=== PATIENT | female | born 1955 | race Caucasian/White ===

== ENCOUNTER 2021-09-16 14:15 | Emergency (ER) | payer OTHER, SELFPAY ==
[2021-09-16 14:31] VITALS: BP 128/82; PULSE 76; RESP 16; TEMP 36.2; O2SAT 99
--- NOTE | 2021-09-16 15:07 | PC.NURSE ---
re examiner did consult with er and aware of need for further evaluation in er after sutures placed by re examiner.
--- NOTE | 2021-09-16 15:13 | ED.WOUNDLAC ---
HPI - Wound/Laceration General Chief Complaint: Wound/Laceration Stated Complaint: cut upper right eye Time Seen by Provider: 09/16/21 14:45 Source: patient, RN notes reviewed and old records reviewed Mode of arrival: ambulatory Limitations: no limitations History of Present Illness HPI narrative: 65 years old female accompanied by presents to express care with laceration above right eye along eyebrow ridge which occurred from ground-level fall hitting head onto concrete. 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 Patient reports that she had mass at the base of her brain and had to have surgery for removal and she had cerebral angiogram performed with clot formation which they were able to break up without her developing a full CVA. Patient has had cervical fusion to base of skull.Patient denies any LOC at time of injury. Patient denies any acute headache pain at present time or any feelings of dizziness.no changes in speech or any motor weakness. Related Data Home Medications Medication Instructions Recorded Confirmed Epidurals 09/16/21 Xanax 09/16/21 apremilast [Otezla] mg PO 09/16/21 aspirin 81 mg PO DAILY 09/16/21 09/16/21 atorvastatin 09/16/21 carisoprodol 09/16/21 dapagliflozin-metformin [Xigduo XR] PO 09/16/21 ergocalciferol (vitamin D2) 09/16/21 ezetimibe mg 09/16/21 famotidine 09/16/21 fenofibrate mg 09/16/21 fluticasone propion-salmeterol INHALATION 09/16/21 [Advair Diskus] folic acid 09/16/21 ixekizumab [Taltz Autoinjector] mg SUBCUT 09/16/21 lisinopril 09/16/21 mecobalamin (vitamin B12) 09/16/21 methotrexate sodium 09/16/21 montelukast mg 09/16/21 pregabalin 09/16/21 rivaroxaban [Xarelto] mg 09/16/21 semaglutide [Ozempic] mg SUBCUT 09/16/21 tramadol mg 09/16/21 trazodone 09/16/21 Allergies Allergy/AdvReac Type Severity Reaction Status Date / Time infliximab Allergy Severe paralysis Verified 09/16/21 16:25 Review of Systems Review of Systems: CONSTITUTIONAL: Denies fever, chills, or sweats. EYES: Denies visual changes, redness, or discharge. ENT: Denies rhinorrhea, congestion, sore throat, or otalgia. CARDIOVASCULAR: Denies chest pain, palpitations, or edema. RESPIRATORY: Denies cough or dyspnea. GASTROINTESTINAL: Denies abdominal pain, nausea, vomiting, or diarrhea. GENITOURINARY: Denies dysuria or hematuria. SKIN: Denies rash or itching. MUSCULOSKELETAL: Chronic back pain, joint pain, or myalgia, history of psoriatic arthritis and spinal stenosis NEUROLOGIC: Denies acute headache, numbness, or weakness, dizziness or any visual disturbance PSYCHIATRIC: Positive for history of anxiety or depression. All systems reviewed & are unremarkable except as noted in HPI and below PMFSH Past Medical History Medical History (Updated 09/17/21 @ 01:05 by Kristi Weber NP) Afib CAD (coronary artery disease) CVA (cerebral vascular accident) Diabetes Elevated cholesterol GERD (gastroesophageal reflux disease) [facility] current use of anticoagulant Myocardial infarction Psoriatic arthritis Spinal stenosis Surgical History Surgical History (Updated 09/17/21 @ 00:52 by Kristi Weber NP) H/O cervical spine surgery H/O repair of rotator cuff History of carpal tunnel surgery History of knee replacement Social History Social History (Updated 09/17/21 @ 01:06 by Kristi Weber NP) Smoking status: Former smoker Tobacco type: cigarettes Alcohol intake: never Substance use: never Living arrangements: with family Gender identity (if verbalized by the patient): Female Exam Narrative: GENERAL: Well-appearing, well-nourished, and in no acute distress. HEAD: Normocephalic, atraumatic. EYES: PERRLA and EOMI.no nystagmus ENT: Nares clear, no rhinorrhea or epistaxis. Mucous membranes moist.TM's normal with good light reflex, throat pink with no lesions or exudates no tonsil enlargement NECK: Supp
--- NOTE | 2021-09-16 15:37 | PC.NURSE ---
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
== END 2021-09-16 15:46 | disposition short-term general hospital (02) ==
PROVIDERS: Emergency Provider Registered Nurse
DX: S01.81XA Laceration without foreign body of other part of head, initial encounter (principal); W19.XXXA Unspecified fall, initial encounter; Z79.01 Long term (current) use of anticoagulants; Z87.891 Personal history of nicotine dependence; I48.91 Unspecified atrial fibrillation; I25.10 Atherosclerotic heart disease of native coronary artery without angina pectoris; Z86.73 Personal history of transient ischemic attack (TIA), and cerebral infarction without residual deficits; E11.9 Type 2 diabetes mellitus without complications; E78.00 Pure hypercholesterolemia, unspecified; K21.9 Gastro-esophageal reflux disease without esophagitis; I25.2 Old myocardial infarction; L40.50 Arthropathic psoriasis, unspecified; M48.00 Spinal stenosis, site unspecified; Z96.659 Presence of unspecified artificial knee joint
CPT/HCPCS: 12011; 99212; G0463

== ENCOUNTER 2021-09-16 16:03 | Emergency (ER) | payer OTHER, SELFPAY ==
--- NOTE | ~2021-09-16 | CT_ITS ---
EXAMINATION: CT cervical spine wo con DATE: 09/16/2021 16:43 INDICATION: Fall. Head and neck injury. TECHNIQUE: Computed tomography (CT) of the cervical spine was performed without intravenous contrast. Automated exposure control and iterative reconstruction technique were employed. Exam dose: 223.84 mGy-cm total exam DLP. COMPARISON: None FINDINGS: There is reversal of cervical curvature. Posterior surgical fusion from C3-base of skull. C1 and C2 are normally aligned and the odontoid process is intact. There is moderate degenerative disc disease at C2-3. There is moderate degenerative disease and approximately 3 mm anterolisthesis at C3-4. There is moderate degenerative disc disease at C4-5. There is anterior fusion at C5-6. There is severe degenerative disc disease at C6-7 and C7-T1 and moderate degenerative disc disease at T1-2. There is prominent uncovertebral joint spurring at C4-5 and C6-C7 in particular. There is degenerative change at the apophyseal joints throughout the cervical spine. IMPRESSION: Status post posterior surgical fusion from C3 to the base of the skull Anterior fusion at C5-6 3 mm anterolisthesis at C3-4 Moderate to severe degenerative disc disease of the cervical and upper thoracic spine Prominent uncovertebral joint spurring at C4-5 and C6-7, degenerative changes throughout the apophyse al joints No fracture or dislocation is detected Reviewed, dictated and finalized at [facility]. Reviewed, dictated and finalized at location [facility]. 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
--- NOTE | ~2021-09-16 | CT_ITS ---
EXAMINATION: CT brain wo con DATE: 09/16/2021 16:43 INDICATION: Fall. Supraorbital right laceration TECHNIQUE: Computed tomography (CT) of the head was performed without intravenous contrast. The mA wa s adjusted according to patient size. Iterative reconstruction technique was employed. Exam dose: 60 5.33 mGy-cm total exam DLP. COMPARISON: None FINDINGS: There is considerable streak artifact in the posterior fossa from the screws along the post erior base of the skull extending into the mid occipital area. No intracranial mass lesion or hemorrhage or cerebrovascular accident is evident. There is no midline shift or mass effect effect. Bilateral basal ganglia calcifications. Bilateral carotid siphon internal carotid artery calcifications are noted. There is nonspecific dimin ished attenuation of the cerebral white matter, likely due to chronic small vessel ischemic changes. Normal ventricular size. No subdural or epidural hematoma is detected. Probable 12 mm left parasagittal frontal calcified meningioma without surrounding edema or mass effec t. There is mild subcutaneous emphysema in the right frontal area consistent with clinically reported ri ght supraorbital laceration. The orbital contents are unremarkable. No skull fracture or bone destruction is evident. The mastoid air cells and included paranasal sinuses are normally developed and aerated. IMPRESSION: Right supraorbital subcutaneous emphysema consistent with laceration No skull fracture Plate and screws along the posterior base of the skull and occipital bone Cerebral atherosclerosis and chronic small vessel ischemic changes of the cerebral white matter No acute intracranial finding Reviewed, dictated and finalized at [facility]. Reviewed, dictated and finalized at [facility]. 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
[2021-09-16 16:08] VITALS: BP 134/51; PULSE 78; RESP 20; TEMP 36.1; O2SAT 99
--- NOTE | 2021-09-16 18:16 | ED.GENADULT ---
HPI - General Adult General Chief complaint: Head Injury Stated complaint: head injury, sent from urgent care for CT Time Seen by Provider: 09/16/21 16:20 Source: patient and other (Urgent care provider report) Mode of arrival: ambulatory Limitations: no limitations History of Present Illness HPI narrative: Patient is a 65-year-old female with chief complaint of laceration above the right brow that was repaired at urgent care and he injury that occurred when she tripped and fell in her garage earlier today. Patient denies loss of consciousness. Patient denies changes in vision or hearing. Patient is a longtime blood thinner user. Patient has had prior intracranial surgeries. Patient was sent by the urgent care for a CT of her brain. Patient denies any neurological deficits such as speech changes, facial asymmetry or motor weakness. Patient denies any chest pain or shortness of breath or any other emergent symptoms. Related Data Home Medications Medication Instructions Recorded Confirmed Epidurals 09/16/21 Xanax 09/16/21 apremilast [Otezla] mg PO 09/16/21 aspirin 81 mg PO DAILY 09/16/21 09/16/21 atorvastatin 09/16/21 carisoprodol 09/16/21 dapagliflozin-metformin [Xigduo XR] PO 09/16/21 ergocalciferol (vitamin D2) 09/16/21 ezetimibe mg 09/16/21 famotidine 09/16/21 fenofibrate mg 09/16/21 fluticasone propion-salmeterol INHALATION 09/16/21 [Advair Diskus] folic acid 09/16/21 ixekizumab [Taltz Autoinjector] mg SUBCUT 09/16/21 lisinopril 09/16/21 mecobalamin (vitamin B12) 09/16/21 methotrexate sodium 09/16/21 montelukast mg 09/16/21 pregabalin 09/16/21 rivaroxaban [Xarelto] mg 09/16/21 semaglutide [Ozempic] mg SUBCUT 09/16/21 tramadol mg 09/16/21 trazodone 09/16/21 Allergies Allergy/AdvReac Type Severity Reaction Status Date / Time infliximab Allergy Severe paralysis Verified 09/16/21 16:25 Review of Systems Review of Systems: CONSTITUTIONAL: Denies fever, chills, or sweats. EYES: Denies visual changes, redness, or discharge. ENT: Denies rhinorrhea, congestion, sore throat, or otalgia. CARDIOVASCULAR: Denies chest pain, palpitations, or edema. RESPIRATORY: Denies cough or dyspnea. GASTROINTESTINAL: Denies abdominal pain, nausea, vomiting, or diarrhea. GENITOURINARY: Denies dysuria or hematuria. SKIN: Reports laceration denies rash or itching. MUSCULOSKELETAL: Denies back pain, joint pain, or myalgia. NEUROLOGIC: Denies loss of consciousness, headache, numbness, dizziness, or weakness. PSYCHIATRIC: Denies anxiety or depression. Exam Narrative: GENERAL: Well-appearing, well-nourished, and in no acute distress. HEAD: Normocephalic, sutured laceration to right brow EYES: PERRLA and EOMI. ENT: Nares clear, no rhinorrhea or epistaxis. Mucous membranes moist. Oropharynx without tonsillar hypertrophy exudate or other lesions. Bilateral TMs pearly butler nonbulging. No hemotympanum. NECK: Supple. Range of motion intact. CHEST: Clear to auscultation. No respiratory distress. No wheezes rales or rhonchi HEART: Regular rate and rhythm. EXTREMITIES: Normal range of motion. No edema. SKIN: Warm, dry, no rash. NEURO: No focal deficits. Alert and oriented x3. PSYCH: Normal mood and affect. Course Vital Signs Vital signs: Vital Signs Temperature 96.9 F L 09/16/21 16:08 Pulse Rate 78 09/16/21 16:08 Respiratory Rate 20 09/16/21 16:08 Blood Pressure 134/51 L 09/16/21 16:08 Pulse Oximetry 99 09/16/21 16:08 Temperature 96.9 F L 09/16/21 16:08 Pulse Rate 78 09/16/21 16:08 Respiratory Rate 20 09/16/21 16:08 Blood Pressure 134/51 L 09/16/21 16:08 Pulse Oximetry 99 09/16/21 16:08 Medical Decision Making [facility] Narrative Medical decision making narrative: Was told the patient will be receiving the Tdap in the urgent care however she did not the patient was receiving Tdap here. Patient had laceration repaired of the right brow at the urgent care. Patient was give
[2021-09-16] MEDS: TETANUS,DIPHTHERIA,AC PERTUSSIS ADULT (0.5 ML) BOOSTRIX IM (18:22)
== END 2021-09-16 18:39 | disposition home or self-care (01) ==
PROVIDERS: Emergency Provider Emergency Medicine
DX: S01.111A Laceration without foreign body of right eyelid and periocular area, initial encounter (principal); Z23 Encounter for immunization; Z79.01 Long term (current) use of anticoagulants; Z79.899 Other long term (current) drug therapy; I67.2 Cerebral atherosclerosis; M50.30 Other cervical disc degeneration, unspecified cervical region; M51.34 Other intervertebral disc degeneration, thoracic region; W01.0XXA Fall on same level from slipping, tripping and stumbling without subsequent striking against object, initial encounter
CPT/HCPCS: 70450; 72125; 90471; 90715; 99284

== ENCOUNTER 2022-07-09 16:50 | Emergency (ER) | payer OTHER, SELFPAY ==
--- NOTE | ~2022-07-09 | CT_ITS ---
EXAMINATION: CT cervical spine wo con DATE: 07/09/2022 17:16 INDICATION: fall, HI, takes Xarelto TECHNIQUE: Computed tomography (CT) of the cervical spine was performed without intravenous contrast. Automated exposure control and iterative reconstruction technique were employed. The dose-length pro duct was 252.86 mGy-cm. COMPARISON: 09/16/2021 FINDINGS: Vertebral Body Alignment: Intact. Stable anterolistheses at C3-4, C4-5, and T2-3 Craniocervical and atlantoaxial alignment: Moderate degenerative change. Alignment intact. Osseous structures/fracture: Upper cervical spine hardware fusion spanning from the occiput to C3. No hardware fracture or perihardware lucency. No evidence of a lytic or blastic process in the visualiz ed spine. No evidence of acute fracture. C5-6 vertebral body fusion Cervical soft tissues: The paraspinal soft tissues planes are maintained. Degenerative changes: Multilevel severe degenerative disc disease. Multilevel facet arthropathy. Mult ilevel moderate bilateral neural foraminal narrowing. Moderate central canal narrowing at C6-7. IMPRESSION: No acute fracture or traumatic malalignment in the cervical spine. Reviewed, dictated and finalized at location [facility]. CIATE PROFESSOR OF VIOLIN
--- NOTE | ~2022-07-09 | CT_ITS ---
EXAMINATION: CT brain wo con DATE: 07/09/2022 17:16 INDICATION: fall, HI, takes Xarelto . TECHNIQUE: Computed tomography (CT) of the head was performed without intravenous contrast. The mA wa s adjusted according to patient size. Iterative reconstruction technique was employed. The dose-lengt h product was 605.33 mGy-cm. COMPARISON: 09/16/2021 FINDINGS: No acute intracranial hemorrhage or extra-axial fluid collection. No hydrocephalus, mass, or herniation. No acute ischemic infarct. Unremarkable dural venous sinus attenuation. No acute osseous abnormality. Left frontal soft tissue contusion. The aerated spaces are clear. Mild atrophy and chronic white matter change. Atherosclerotic intracranial calcification. Partially v isualized cervical fusion hardware. Bilateral basal ganglia calcification. Calcified left frontal men ingioma. IMPRESSION: No acute intracranial process. Reviewed, dictated and finalized at location [facility]. ROOM CLERK
[2022-07-09 17:02] VITALS: BP 110/68; PULSE 98; RESP 18; TEMP 36.7; O2SAT 99
--- NOTE | 2022-07-09 17:27 | ED.HEATRA ---
HPI - Head Injury General Chief complaint: Head Injury <Ruth Warner PA-C - Last Filed: 07/09/22 18:25> Stated complaint: fell, hit head,-LOC, takes Xarelto <Ruth Warner PA-C - Last Filed: 07/09/22 18:25> Time Seen by Provider: 07/09/22 17:02 <GIUSEPPE Miller Last Filed: 07/09/22 18:25> Source: patient <Ruth Warner PA-C - Last Filed: 07/09/22 18:25> Mode of arrival: ambulatory <GIUSEPPE Miller Last Filed: 07/09/22 18:25> Limitations: no limitations <GIUSEPPE Miller Last Filed: 07/09/22 18:25> History of Present Illness HPI Narrative: Patient is a 66-year-old female who presents the ED with report of a head injury. Patient reports she tripped and fell in her garage approximately 1 hour ago, falling face first against her concrete floor. She did sustain a hematoma/contusion to her left frontal head, but denied LOC. Denies neck pain. Denies nausea, vomiting, dizziness, weakness, vision changes, confusion. She does take Xarelto due to history of atrial fibrillation which prompted her presentation. No other injuries. <Ruth Warner PA-C - Last Filed: 07/09/22 18:25> Related Data Home medications: Home Medications Medication Instructions Recorded Confirmed Epidurals 09/16/21 Xanax 09/16/21 apremilast 30 mg tablet (Otezla) mg PO 09/16/21 aspirin 81 mg tablet 81 mg PO DAILY 09/16/21 09/16/21 atorvastatin 80 mg tablet 09/16/21 carisoprodol 350 mg tablet 09/16/21 dapagliflozin 2.5 mg-metformin ER PO 09/16/21 1,000 mg tablet,extended release 24h (Xigduo XR) ergocalciferol (vitamin D2) 09/16/21 ezetimibe 10 mg tablet mg 09/16/21 famotidine 20 mg tablet 09/16/21 fenofibrate 54 mg tablet mg 09/16/21 fluticasone 100 mcg-salmeterol 50 inhalation 09/16/21 mcg/dose blistr powdr for inhalation (Advair Diskus) folic acid 1 mg tablet 09/16/21 ixekizumab 80 mg/mL subcutaneous mg subcut 09/16/21 auto-injector (Taltz Autoinjector) lisinopril 5 mg tablet 09/16/21 mecobalamin (vitamin B12) 09/16/21 methotrexate sodium 2.5 mg tablet 09/16/21 montelukast 10 mg tablet mg 09/16/21 pregabalin 150 mg capsule 09/16/21 rivaroxaban 20 mg tablet (Xarelto) mg 09/16/21 semaglutide 1 mg/dose (4 mg/3 mL) mg subcut 09/16/21 subcutaneous pen injector (Ozempic) tramadol 50 mg tablet mg 09/16/21 trazodone 150 mg tablet 09/16/21 <Ruth Warner PA-C - Last Filed: 07/09/22 18:25> Allergies/Adverse reactions: Allergies Allergy/AdvReac Type Severity Reaction Status Date / Time infliximab Allergy Severe paralysis Verified 07/09/22 17:05 <Ruth Warner PA-C - Last Filed: 07/09/22 18:25> Review of Systems Review of Systems: CONSTITUTIONAL: Denies fever, chills, or sweats. EYES: Denies visual changes. CARDIOVASCULAR: Denies chest pain. RESPIRATORY: Denies dyspnea. GASTROINTESTINAL: Denies abdominal pain, nausea, vomiting. SKIN: Reports contusion to left forehead. MUSCULOSKELETAL: Denies back pain, neck pain. NEUROLOGIC: Reports head injury. Denies dizziness, LOC, confusion, numbness, or weakness. <Ruth Warner PA-C - Last Filed: 07/09/22 18:25> All systems reviewed & are unremarkable except as noted in HPI and below <Ruth Warner PA-C - Last Filed: 07/09/22 18:25> PMFSH Past Medical History Medical History: Medical History Afib CAD (coronary artery disease) CVA (cerebral vascular accident) Diabetes Elevated cholesterol GERD (gastroesophageal reflux disease) correction current use of anticoagulant Myocardial infarction Psoriatic arthritis Spinal stenosis <Ruth Warner PA-C - Last Filed: 07/09/22 18:25> Surgical History Surgical History: Surgical History H/O cervical spine surgery H/O repair of ro
== END 2022-07-09 18:24 | disposition home or self-care (01) ==
PROVIDERS: Emergency Provider Emergency Medicine
DX: S00.83XA Contusion of other part of head, initial encounter (principal); Z79.01 Long term (current) use of anticoagulants; I48.91 Unspecified atrial fibrillation; I25.10 Atherosclerotic heart disease of native coronary artery without angina pectoris; Z86.73 Personal history of transient ischemic attack (TIA), and cerebral infarction without residual deficits; E11.9 Type 2 diabetes mellitus without complications; K21.9 Gastro-esophageal reflux disease without esophagitis; W01.0XXA Fall on same level from slipping, tripping and stumbling without subsequent striking against object, initial encounter
CPT/HCPCS: 70450; 72125; 99284

== ENCOUNTER 2022-07-11 20:40 | Observation (INO) | payer OTHER, SELFPAY ==
[2022-07-11] VITALS (9 sets, daily range): BP systolic 121–132; BP diastolic 55–78; PULSE 100; RESP 18; TEMP 37; O2SAT 96–98
--- NOTE | ~2022-07-11 | XR_ITS ---
EXAMINATION: XR chest 1V portable DATE: 07/11/2022 21:09 INDICATION: Fall with head trauma presenting with nausea and vomiting TECHNIQUE: frontal view of the chest was obtained. COMPARISON: None FINDINGS: Subtle opacity left lower lung zone which could represent atelectasis, aspiration or pneumonia. Calci fied nodule in the right lower lung zone consistent with old granulomatous disease. No pulmonary sushil a, pleural effusion or pneumothorax. The cardiomediastinal silhouette is normal. Left pectoral implan table certified rehabilitation counselor. Calcific tendinitis in the region of the distal right infraspinatus or teres m inor tendons. IMPRESSION: 1. Subtle opacities at the left lung base which could represent atelectasis, aspiration or pneumonia. Reviewed, dictated and finalized at location [facility]. PICKER IMPRESSION: 1. Subtle opacities at the left lung base which could represent atelectasis, as piration or pneumonia.
--- NOTE | ~2022-07-11 | CT_ITS ---
EXAMINATION: CT abdomen pelvis w con DATE: 07/11/2022 22:59 INDICATION: Abdominal pain, vomiting. Fever. TECHNIQUE: Computed tomography (CT) of the abdomen and pelvis was performed with 100 CC Omnipaque 350 intravenous contrast. Automated exposure control and iterative reconstruction technique were employe d. Exam dose: 350.64 mGy-cm total exam DLP. COMPARISON: None. FINDINGS: Prominent calcified pulmonary granuloma, posterior right lower lobe. There is patchy infiltrate and/atelectasis involving primarily the dependent left lower lobe. Normal heart size. No pericardial or pleural effusion. Small sliding hiatal hernia. The liver, gallbladder, bile ducts, spleen, pancreas and pancreatic duct and adrenal glands and kidne ys are unremarkable. No urinary tract calculus or hydroureteronephrosis. There is atherosclerotic calcification of the abdominal aorta and iliac arteries but no abdominal aor tic aneurysm. No intraperitoneal or retroperitoneal or pelvic mass lesion or adenopathy or ascites. Normal appendix. Minimal colonic diverticulosis. There is minimal pericolic stranding in the region of the descending colon; recommend correlation with clinical correlation for very mild diverticulitis. No bowel obstruction, bowel wall thickening, pneumatosis or intraperitoneal free air. Calcified uterine fibroid. Retroverted uterus. Urinary bladder is unremarkable. Moderately severe degenerative disc disease at L5-S1 IMPRESSION: Small sliding hiatal hernia Normal appendix. Mild colonic diverticulosis Minimal pericolic fat stranding in the descending colon area; cannot exclude very mild diverticulitis Mild infiltrate or atelectasis, left lower lobe Reviewed, dictated and finalized at [facility]. Reviewed, dictated and finalized at [facility]. SPECIALIST IMPRESSION: Small sliding hiatal hernia Normal appendix. Mild colonic diverticulosis Minimal pericolic fat stranding in the descending colon area; cannot exclude ve ry mild diverticulitis Mild infiltrate or atelectasis, left lower lobe
--- NOTE | 2022-07-11 20:59 | ED.GENADULT ---
HPI - General Adult General Chief complaint: Nausea/Vomiting/Diarrhea Stated complaint: vomiting Time Seen by Provider: 07/11/22 20:44 Source: RN notes reviewed History of Present Illness HPI narrative: Patient presents emergency room from home for nausea and vomiting. Patient states that symptoms began 2 days ago. States that she has been having generalized fevers and chills as well as rhinorrhea sore throat and nonproductive cough states she is also been having nausea and vomiting during this time. Patient states temperatures been up to 101 degrees at home she denies any chest pain or shortness of breath she denies any abdominal pain or diarrhea patient does admit she was seen here for a fall 2 days ago and had a CT scan of her head at that time was negative Related Data Home Medications Medication Instructions Recorded Confirmed Epidurals 09/16/21 Xanax 09/16/21 apremilast 30 mg tablet (Otezla) mg PO 09/16/21 aspirin 81 mg tablet 81 mg PO DAILY 09/16/21 09/16/21 atorvastatin 80 mg tablet 09/16/21 carisoprodol 350 mg tablet 09/16/21 dapagliflozin 2.5 mg-metformin ER PO 09/16/21 1,000 mg tablet,extended release 24h (Xigduo XR) ergocalciferol (vitamin D2) 09/16/21 ezetimibe 10 mg tablet mg 09/16/21 famotidine 20 mg tablet 09/16/21 fenofibrate 54 mg tablet mg 09/16/21 fluticasone 100 mcg-salmeterol 50 inhalation 09/16/21 mcg/dose blistr powdr for inhalation (Advair Diskus) folic acid 1 mg tablet 09/16/21 ixekizumab 80 mg/mL subcutaneous mg subcut 09/16/21 auto-injector (Taltz Autoinjector) lisinopril 5 mg tablet 09/16/21 mecobalamin (vitamin B12) 09/16/21 methotrexate sodium 2.5 mg tablet 09/16/21 montelukast 10 mg tablet mg 09/16/21 pregabalin 150 mg capsule 09/16/21 rivaroxaban 20 mg tablet (Xarelto) mg 09/16/21 semaglutide 1 mg/dose (4 mg/3 mL) mg subcut 09/16/21 subcutaneous pen injector (Ozempic) tramadol 50 mg tablet mg 09/16/21 trazodone 150 mg tablet 09/16/21 Allergies Allergy/AdvReac Type Severity Reaction Status Date / Time infliximab Allergy Severe paralysis Verified 07/12/22 03:40 Review of Systems Review of Systems: Gen.: Reports fever and chills Eyes: Denies eye pain or visual change ENT: D see HPI Respiratory: Denies shortness of breath reports cough CV: Denies chest pain or palpitations GI: Denies abdominal pain or diarrhea, reports nausea vomiting Musculoskeletal: Denies back pain or muscle pain Neuro: Denies numbness, tingling, weakness or focal weakness Skin: Denies rash Except as documented, all other systems reviewed and negative [facility] Past Medical History Medical History Afib CAD (coronary artery disease) CVA (cerebral vascular accident) Diabetes Elevated cholesterol 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 Myocardial infarction Psoriatic arthritis Spinal stenosis Surgical History Surgical History H/O cervical spine surgery H/O repair of rotator cuff History of carpal tunnel surgery History of knee replacement Social History Social History Smoking status: Former smoker Tobacco type: cigarettes Alcohol intake: never Substance use: never Gender identity (if verbalized by the patient): Female Exam Narrative: APPEARANCE: No acute distress, nontoxic, resting in bed EYES: EOMI, PERRL HEENT: Normocephalic, ecchymosis around left superior and inferior orbit TMs clear bilaterally erythema of the posterior pharynx and bilateral tonsils with no exudate uvula midline bilateral turbinates boggy, RESPIRATORY: No respiratory distress Clear to auscultation bilaterally with no rhonchi wheezing or rales. CARDIOVASCULAR: Regular rate and rhythm without murmurs rubs or gallops. ABDOMINAL: Soft, nontender, nondistended, no rebound
[2022-07-11] MEDS: SODIUM CHLORIDE 0.9% IV 1,000 ML 999 ML IV CONT ×2 (21:08→22:59)
[2022-07-11] MEDS: ONDANSETRON INJ 4 MG/2 ML VIAL IV PUSH (21:08)
[2022-07-11 21:16] LABS: Basophils Percent Auto 0.3 % (0.2-1.2); Hematocrit 34.2 % (37.0-47.0); Hemoglobin 11.6 g/dL (12.0-15.0); Immature Granulocyte Absolute 0.02 K/mm3 (0.00-0.031); Immature Granulocyte Percent A 0.3 % (0-0.5); Lymphocytes Percent Auto 8.9 % (18.3-44.2); Mean Corpuscular HGB Conc 33.9 g/dl (32-36); Mean Corpuscular Hemoglobin 31.2 pg (26-34); Mean Corpuscular Volume 91.9 fl (80-100); Mean Platelet Volume 9.8 fl (7.4-10.4); Monocytes Absolute Auto 1.1 K/mm3 (0.1-0.6); Monocytes Percent Auto 14.6 % (2.6-8.5); Neutrophils Percent Auto 75.9 % (45.5-73.1); Platelet Count Result 319 k/mm3 (150-375); Red Blood Count 3.72 M/mm3 (4.2-5.4); Red Cell Distribution Width 16.2 % (11.5-14.5); White Blood Count 7.8 K/mm3 (4.5-10.0)
[2022-07-11 21:34] LABS: Alanine Aminotransferase 76 U/L (6-35); Albumin Level 4.2 g/dL (3.5-5.1); Alkaline Phosphatase 67 U/L (38-126); Anion Gap 18 mmol/L (8-16); Aspartate Amino Transferase 107 U/L (14-36); Bilirubin,Total 0.8 mg/dL (0.2-1.3); Blood Urea Nitrogen 16 mg/dL (7-17); Calcium 8.7 mg/dL (8.4-10.2); Carbon Dioxide 19 mmol/L (22-30); Chloride 98 mmol/L (98-107); Estimated CRCL calculation 70 ml/min; Estimated Glomerular Filt Rate > 60; Glucose 111 mg/dL (65-110); Lipase 38 U/L (23-300); Potassium 4.1 mmol/L (3.4-5.0); Sodium 135 mmol/L (137-145)
[2022-07-11 21:53] LABS: Influenza A QL RT-PCR Positive (Negative); Influenza B QL RT-PCR Negative (Negative); SARS-CoV-2 RNA PCR Negative
[2022-07-11 22:02] LABS: Appearance Urine Clear (Clear); Bilirubin Urine 2+ (Negative); Blood Urine Trace-lysed (Negative); Color Urine Yellow (Yellow); Glucose Urine UA 3+ mg/dL (Negative); Ketones Urine 3+ mg/dL (Negative); Leukocyte Esterase Ur Negative LEU/UL (Negative); Nitrate Urine Negative (Negative); Protein Urine 1+ mg/dL (Negative); Specific Grav Ur 1.025 (1.001-1.035); Urobilinogen Urine 0.2 mg/dL (<2.0)
[2022-07-11 22:05] LABS: Bacteria Urine Trace /hpf; Mucus Urine Rare /lpf; RBC Urine 0-2 /hpf (0-2); Squamous Epithelial Cell Urine Occasional /hpf (Few); WBC Urine 0-3 /hpf
[2022-07-11 22:06] LABS: Add Urine Microscopic? YES
[2022-07-12] VITALS (24 sets, daily range): BP systolic 93–153; BP diastolic 46–95; PULSE 80–103; RESP 16–20; TEMP 35.9–36.8; O2SAT 91–97; BMI 25.9
[2022-07-12] MEDS: OSELTAMIVIR PHOSPHATE 75 MG CAPSULE PO ×3 (01:12→21:08)
[2022-07-12] MEDS: ONDANSETRON INJ 4 MG/2 ML VIAL IV PUSH (04:12)
[2022-07-12] MEDS: SODIUM CHLORIDE 0.9% IV 1,000 ML 80 ML IV CONT (04:24)
--- NOTE | 2022-07-12 05:09 | ADMGEN ---
This patient, Jocelin Wood, was admitted to [facility] Room 314-01. Patient/family oriented to hospital policies and general routines including ID bracelet, bed and alarms, visiting hours, pain management, procedures, bathroom and other care routines, personal items, smoking policy, room service/diet, and visiting hours. Information on how to activate the Rapid Response Team has been discussed. Patient/Family are encouraged to report perceived risks to care and to ask questions if they do not understand what they are told or what they should do.
--- NOTE | 2022-07-12 05:13 | PM.IMHP ---
H&P: HPI History of Present Illness Date/Time: 07/12/22 05:13 Chief Complaint: Fever, nausea and Narrative: 66-year-old female with past medical history of type 2 diabetes mellitus, coronary artery disease, CVA and psoriatic arthritis on chronic immunosuppression who presented to the ER with fever, nausea and vomiting. Patient has been having 2 days of fever chills and sore throat. Her temperature was a 101? at home. She has had a nonproductive cough and nausea and vomiting. Nausea vomiting has continued to worsen and is been persistent. She was weak 2 days ago and tripped and fell resulting in head injury. She had a CT of the head done at that time which was negative.She reports that she was just feeling weaker on Friday and that resulted in a trip and fall. She thought she was weaker as she was due for to have her spinal injections done and has not quite made it to the doctor's office. However later in the day she began having fevers up to 101.8 and associated nausea and vomiting after she returned home. She has had some nonproductive cough. She has also noticed some mild epistaxis that is resolved with direct pressure. She denies any chest pain. She has had some mild shortness of breath. Her cough is nonproductive. But her biggest complaint has been persistent nausea and vomiting. She reports she has been so nauseated she has not been able to take any of her home medications. She denies any abdominal pain at periods she does have some to sore throat associated with vomiting. She reports a mild headache and just does not feel well. She states that she feels dehydrated and lightheaded with position changes. she denies any confusion. She has not had any diarrhea or changes in urine symptoms but she had not made any urine the entire time she was in the ER until after she received 2 L of fluids at which time she may need a small amount of concentrated urine. She denies any difficulty swallowing or coughing or choking on food at baseline. She denies any recent ill contacts. She lives with her who so far is not ill. her vomiting had not improved despite multiple doses of Zofran. I ordered IM Phenergan in the patient is now resting comfortably and has had no further vomiting. She denies any abdominal pain. She does report right ear pain but admits to using a Q-tip a couple of days ago. On exam she has what appears to be a small amount of dried blood or developing hematoma to the ear canal at the 10 o'clock position. The small portion of the eardrum that I can visualize appears to be intact the rest of the eardrum is covered with cerumen impaction. Her hearing seems relatively normal despite this. Review of Systems Review of Systems: 12 systems were reviewed with pertinent positives and negatives per HPI. Except as documented in the HPI, all other systems were reviewed and are negative. 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 Myocardial infarction Psoriatic arthritis Spinal stenosis Surgical History Surgical History H/O cervical spine surgery H/O repair of rotator cuff History of carpal tunnel surgery History of knee replacement Family History Family History Father Diabetes mellitus CAD (coronary artery disease) Sibling Diabetes mellitus CAD (coronary artery disease) Mother Asthma Social History Social History (Updated 07/12/22 @ 06:49 by Janette Rolle DO) Social History: Code status: Full code Surrogate decision maker: Smoking status: Never smoker Tobacco type: cigarettes Alcohol intake: never Substance use: never Lack of [place]
--- NOTE | 2022-07-12 05:14 | ECG_ITS ---
Measurements Intervals [place] Rate: 92 P: 74 GA: 147 QRS: 53 QRSD: 90 T: 47 QT: 322 QTc: 400 Interpretive Statements SINUS RHYTHM NORMAL ECG NO PREVIOUS ECG AVAILABLE FOR COMPARISON Electronically Signed On 07-12-2022 9:45:54 APPLICATION PROCESSOR by Alex العلي D.O.
[2022-07-12] MEDS: PROMETHAZINE HCL 25 MG/ML AMPUL IM ×2 (05:40→09:28)
[2022-07-12 06:04] LABS: Hematocrit 33.3 % (37.0-47.0); Hemoglobin 11.1 g/dL (12.0-15.0); Mean Corpuscular HGB Conc 33.3 g/dl (32-36); Mean Corpuscular Hemoglobin 30.4 pg (26-34); Mean Corpuscular Volume 91.2 fl (80-100); Platelet Count Result 316 k/mm3 (150-375); Red Blood Count 3.65 M/mm3 (4.2-5.4); Red Cell Distribution Width 16.2 % (11.5-14.5); White Blood Count 5.5 K/mm3 (4.5-10.0)
[2022-07-12 06:07] LABS: Lactic Acid Reflex 1.2 mmol/L (0.7-2.0)
[2022-07-12 06:09] LABS: Alanine Aminotransferase 61 U/L (6-35); Albumin Level 3.8 g/dL (3.5-5.1); Alkaline Phosphatase 68 U/L (38-126); Anion Gap 14 mmol/L (8-16); Aspartate Amino Transferase 76 U/L (14-36); Bilirubin,Total 0.5 mg/dL (0.2-1.3); Blood Urea Nitrogen 12 mg/dL (7-17); Calcium 8.2 mg/dL (8.4-10.2); Carbon Dioxide 18 mmol/L (22-30); Chloride 101 mmol/L (98-107); Estimated CRCL calculation 70 ml/min; Estimated Glomerular Filt Rate > 60; Glucose 137 mg/dL (65-110); Potassium 3.9 mmol/L (3.4-5.0); Sodium 133 mmol/L (137-145)
[2022-07-12] MEDS: AMPICILLIN SULB 3 GM/NS 100 ML 3 GM/100 ML VIAL IVPB ×4 (07:30→23:00)
[2022-07-12] MEDS: FERROUS SULFATE 324 MG TABLET PO (09:17)
[2022-07-12] MEDS: lisinopriL 5 MG TABLET PO (09:17)
[2022-07-12] MEDS: PREGABALIN (*CRX) 75 MG CAPSULE 150 MG PO ×2 (09:18→17:43)
[2022-07-12] MEDS: ASPIRIN 81 MG ENTERIC TABLET PO (09:18)
[2022-07-12] MEDS: FAMOTIDINE 20 MG TABLET PO ×2 (09:18→17:42)
--- NOTE | 2022-07-12 11:45 | PM.IMPN ---
Progress Note: A&P Assessment and Plan (1) Influenza A: Code(s): J10.1 - Influenza due to other identified influenza virus with other respiratory manifestations Status: Acute Assessment and Plan: Patient presents with n/v and fevers. Patient was started on Tamiflu. She feels labored. Start neb treatments. (2) Pneumonia: Qualifiers: Pneumonia type: due to unspecified organism Laterality: left Lung location: lower lobe of lung Qualified Code(s): J18.9 - Pneumonia, unspecified organism Code(s): J18.9 - Pneumonia, unspecified organism Status: Acute Assessment and Plan: Given the patient's recent and intractable vomiting there was concern about CXR showing subtle left lung base airspace disease. Abx adjusted from Rocephin and azithromycin to Unasyn. Pneumonia is likely associated with aspiration but could also be due to post-viral pneumonia such as Staph. WBC normal and remains on room air. Will continue to follow clinically. Add Doxycycline. (3) Intractable nausea and vomiting: Code(s): R11.2 - Nausea with vomiting, unspecified Status: Acute Assessment and Plan: Patient is still having intractable nausea and vomiting. EKG normal. Lipase normal. Continue Phenergan prn. Continue supportive care (4) Elevated LFTs: Code(s): R79.89 - Other specified abnormal findings of blood chemistry Status: Acute Assessment and Plan: The patient does have elevated LFTs.? This could be due to her recent intractable nausea vomiting or more likely from her viral illness and/or from methotrexate and other immunosuppressive therapies.?Levels trending down. Continue to monitor (5) Immunosuppression due to drug therapy: Code(s): D84.821 - Immunodeficiency due to drugs; Z79.899 - Other usp (current) drug therapy Status: Acute Assessment and Plan: Patient on MTX and Ixekizumab for psoriatic arthritis. These are on hold given current infections. Time Spent With Patient Time: Metabolic acidosis - Patient had a low serum bicarb with gap of 18 on admission. With IV fluids, serum bicarb unchanged but gap has closed. Lactic acid level normal. Related to metformin? Will follow DM - The patient is currently euglycemic.? The patient's home hypoglycemic agents are on hold.? Continue sliding scale insulin with Accu-Cheks a.c. HS.? Hypoglycemia protocol has been ordered. Subjective Date/time seen: 07/12/22 11:45 Interval history: 66yo female with CVA, DM and CAD here for fever, nausea and vomiting and found to have influenza A. Feels weak and shaky. Still with nausea. Did get influenza vaccing about 6 weeks ago. No diarrhea. Passing flatus. Exam Narrative: AF 98.2 151/66 101 20 91% ra Gen - NARD lying semi-recumbent in bed HEENT - left periorbital bruising Chest - left base inspiratory crackles otherwise clear. nml RR CV - RRR S1/S2 Abd - Soft, NT/ND, Positive BS Ext - No pedal edema Psych - Nml mood and affect Skin - Warm and dry Objective Data Vital Signs Vital Signs: Vital Signs - 24 hr 07/11/22 20:43 07/11/22 23:10 07/11/22 23:11 Temperature 98.6 F Pulse Rate 100 Respiratory Rate 18 Blood Pressure 131/78 132/63 Pulse Oximetry 97 97 97 Oxygen Delivery Room Air 07/11/22 23:15 07/11/22 23:16 07/11/22 23:30 Temperature Pulse Rate Respiratory Rate Blood Pressure 121/55 L Pulse Oximetry 97 97 98 Oxygen Delivery 07/11/22 23:31 07/11/22 23:45 07/11/22 23:46 Temperature Pulse Rate Respiratory Rate Blood Pressure 131/56 L 130/57 L Pulse Oximetry 98 97 96 Oxygen Delivery 07/12/22 00:00 07/12/22 00:01 07/12/22 00:15 Temperature Pulse Rate Respiratory Rate Blood Pressure 123/48 L Pulse Oximetry 95 96 93 Oxygen Delivery 07/12/22 00:16 07/12/22 00:30 07/12/22 00:31 Temperature Pulse Rate Respiratory Rate Blood Pressure 126
[2022-07-12] MEDS: SODIUM CHLORIDE 0.9% IV 1,000 ML 125 ML IV CONT ×2 (13:42→22:56)
[2022-07-12] MEDS: DOXYCYCLINE HYCLATE 100 MG TABLET PO ×2 (13:43→21:08)
[2022-07-12] MEDS: RIVAROXABAN 20 MG TABLET PO (17:42)
--- NOTE | 2022-07-12 17:45 | PC.NURSE ---
pt stated she is diabetic and takes xigduo at home. I notified cee plascencia whom contacted the doctor. Doctor put new orders in.
[2022-07-12] MEDS: traZODone HCL 50 MG TABLET 150 MG PO (21:07)
[2022-07-12] MEDS: ATORVASTATIN 40 MG TABLET 80 MG PO (21:08)
[2022-07-12 22:19] LABS: Glucose Point of Care 144 mg/dl (65-105)
[2022-07-13] VITALS (14 sets, daily range): BP systolic 113–136; BP diastolic 57–66; PULSE 63–89; RESP 16–20; TEMP 35.8–36.3; O2SAT 92–98
[2022-07-13] MEDS: carisoprodoL (*CRX) 350 MG TABLET PO ×2 (00:27→21:23)
[2022-07-13] MEDS: AMPICILLIN SULB 3 GM/NS 100 ML 3 GM/100 ML VIAL IVPB ×3 (05:53→16:46)
[2022-07-13 06:36] LABS: Basophils Percent Auto 0.4 % (0.2-1.2); Eosinophils Absolute Auto 0.1 K/mm3 (0-0.3); Eosinophils Percent Auto 1.8 % (0-4.4); Hematocrit 29.4 % (37.0-47.0); Hemoglobin 9.6 g/dL (12.0-15.0); Immature Granulocyte Absolute 0.02 K/mm3 (0.00-0.031); Immature Granulocyte Percent A 0.4 % (0-0.5); Lymphocytes Absolute Auto 0.96 K/mm3 (0.9-3.2); Lymphocytes Percent Auto 18.9 % (18.3-44.2); Mean Corpuscular HGB Conc 32.7 g/dl (32-36); Mean Corpuscular Hemoglobin 30.5 pg (26-34); Mean Corpuscular Volume 93.3 fl (80-100); Mean Platelet Volume 9.8 fl (7.4-10.4); Monocytes Absolute Auto 0.6 K/mm3 (0.1-0.6); Monocytes Percent Auto 11.4 % (2.6-8.5); Neutrophils Absolute Auto 3.4 K/mm3 (1.3-6.7); Neutrophils Percent Auto 67.1 % (45.5-73.1); Platelet Count Result 291 k/mm3 (150-375); Red Blood Count 3.15 M/mm3 (4.2-5.4); Red Cell Distribution Width 16.7 % (11.5-14.5); White Blood Count 5.1 K/mm3 (4.5-10.0)
[2022-07-13 06:50] LABS: Alanine Aminotransferase 43 U/L (6-35); Albumin Level 2.8 g/dL (3.5-5.1); Alkaline Phosphatase 56 U/L (38-126); Anion Gap 10 mmol/L (8-16); Aspartate Amino Transferase 64 U/L (14-36); Bilirubin,Total 0.3 mg/dL (0.2-1.3); Blood Urea Nitrogen 8 mg/dL (7-17); Calcium 7.6 mg/dL (8.4-10.2); Carbon Dioxide 25 mmol/L (22-30); Chloride 108 mmol/L (98-107); Estimated CRCL calculation 70 ml/min; Estimated Glomerular Filt Rate > 60; Glucose 116 mg/dL (65-110); Potassium 3.2 mmol/L (3.4-5.0); Sodium 143 mmol/L (137-145)
[2022-07-13 07:00] LABS: Hemoglobin A1C 6.4 % (<5.7)
[2022-07-13 07:31] LABS: Glucose Point of Care 109 mg/dl (65-105)
[2022-07-13] MEDS: SODIUM CHLORIDE 0.9% IV 1,000 ML 125 ML IV CONT (08:10)
[2022-07-13] MEDS: DOXYCYCLINE HYCLATE 100 MG TABLET PO ×2 (08:11→21:23)
[2022-07-13] MEDS: OSELTAMIVIR PHOSPHATE 75 MG CAPSULE PO ×2 (08:11→21:23)
[2022-07-13] MEDS: lisinopriL 5 MG TABLET PO (08:11)
[2022-07-13] MEDS: POTASSIUM CHLORIDE 20 MEQ TABLET 40 MEQ PO (08:11)
[2022-07-13] MEDS: FAMOTIDINE 20 MG TABLET PO ×2 (08:11→16:46)
[2022-07-13] MEDS: ASPIRIN 81 MG ENTERIC TABLET PO (08:11)
[2022-07-13] MEDS: PREGABALIN (*CRX) 75 MG CAPSULE 150 MG PO ×2 (08:15→16:45)
[2022-07-13 11:26] LABS: Glucose Point of Care 115 mg/dl (65-105)
--- NOTE | 2022-07-13 15:44 | PM.IMPN ---
Progress Note: A&P Assessment and Plan (1) Influenza A: Code(s): J10.1 - Influenza due to other identified influenza virus with other respiratory manifestations Status: Acute Assessment and Plan: Patient presents with n/v and fevers. She was diagnosed with Influenza A. Continue Tamiflu. Continue neb treatments. (2) Pneumonia: Qualifiers: Laterality: left Lung location: lower lobe of lung Pneumonia type: due to unspecified organism Qualified Code(s): J18.9 - Pneumonia, unspecified organism Code(s): J18.9 - Pneumonia, unspecified organism Status: Acute Assessment and Plan: Given the patient's recent and intractable vomiting there was concern about aspiration. CXR showing subtle left lung base airspace disease. Abx adjusted from Rocephin and azithromycin to Unasyn. Pneumonia is likely associated with aspiration but could also be due to post-viral pneumonia such as Staph. WBC normal and remains on room air so will continue abx. (3) Intractable nausea and vomiting: Code(s): R11.2 - Nausea with vomiting, unspecified Status: Acute Assessment and Plan: Patient with intractable nausea and vomiting. Lipase normal. Related to above. Symptoms better and diet advanced. Continue Phenergan prn. Continue to monitor. (4) Elevated LFTs: Code(s): R79.89 - Other specified abnormal findings of blood chemistry Status: Acute Assessment and Plan: The patient does have elevated LFTs.? This could be due to her recent intractable nausea and vomiting or more likely from her viral illness and/or from methotrexate and other immunosuppressive therapies.?Levels trending down. Continue to monitor (5) Immunosuppression due to drug therapy: Code(s): D84.821 - Immunodeficiency due to drugs; Z79.899 - Other intermediate (current) drug therapy Status: Acute Assessment and Plan: Patient on MTX and Ixekizumab for psoriatic arthritis. These are on hold given current infections. Plan Diverticulitis? - CT scan showing fat stranding in the descending colon area. No abdominal pain. Already on abx for another reason. Not felt to have diverticulitis. Subjective Date/time seen: 07/13/22 15:44 Interval history: 66yo female with CVA, DM and CAD here for fever, nausea and vomiting and found to have influenza A. Feels better. No further n/v. Diet advanced and she is tolerating. No melena and hematachezia. SOB better. No diarrhea or abd pain. Exam Narrative: AF 96.5 118/57 82 20 98% ra Gen - NARD sitting up in bed HEENT - left periorbital bruising Chest - mild right base inspiratory crackles, nml RR CV - RRR S1/S2 Abd - Soft, NT/ND, Positive BS Ext - No pedal edema Psych - Nml mood and affect Skin - Warm and dry Objective Data Vital Signs Vital Signs: Vital Signs - 24 hr 07/12/22 16:00 07/12/22 20:10 07/12/22 22:00 Temperature 96.8 F L Pulse Rate 103 H 87 92 Respiratory Rate 19 20 Blood Pressure 93/46 L Pulse Oximetry 97 Oxygen Delivery 07/12/22 20:00 07/13/22 03:06 07/12/22 20:00 Temperature Pulse Rate 92 87 80 Respiratory Rate 20 16 Blood Pressure Pulse Oximetry 97 Oxygen Delivery Room Air 07/13/22 00:00 07/13/22 04:00 07/13/22 06:00 Temperature 97.4 F L Pulse Rate 73 68 72 Respiratory Rate 19 Blood Pressure 113/60 Pulse Oximetry 92 Oxygen Delivery 07/13/22 07:59 07/13/22 07:59 07/13/22 08:18 Temperature Pulse Rate 86 84 Respiratory Rate 20 20 Blood Pressure Pulse Oximetry 98 Oxygen Delivery Room Air 07/13/22 08:00 07/13/22 08:00 07/13/22 12:00 Temperature Pulse Rate 63 81 Respiratory Rate Blood Pressure Pulse Oximetry Oxygen Delivery Room Air 07/13/22 14:00 07/13/22 14:59 07/13/22 15:10 Temperature 96.5 F L Pulse Rate 88 86 82 Respiratory Rate 20 20 20 Blood Pressure 118/57 L Pulse Oximetry 98 Oxygen Deliver
[2022-07-13 16:45] LABS: Glucose Point of Care 102 mg/dl (65-105)
[2022-07-13] MEDS: RIVAROXABAN 20 MG TABLET PO (16:45)
[2022-07-13 20:36] LABS: Glucose Point of Care 134 mg/dl (65-105)
[2022-07-13] MEDS: ATORVASTATIN 40 MG TABLET 80 MG PO (21:22)
[2022-07-13] MEDS: traZODone HCL 50 MG TABLET 150 MG PO (21:24)
[2022-07-14] VITALS: PULSE 97
[2022-07-14] MEDS: AMPICILLIN SULB 3 GM/NS 100 ML 3 GM/100 ML VIAL IVPB ×2 (00:27→06:16)
[2022-07-14] MEDS: traMADol HCL (*CRX) 50 MG TABLET PO (00:32)
[2022-07-14 03:00] VITALS: PULSE 80; RESP 16
[2022-07-14 06:00] VITALS: BP 107/79; PULSE 73; RESP 17; TEMP 36; O2SAT 97
[2022-07-14 08:00] VITALS: PULSE 73
[2022-07-14 08:06] LABS: Glucose Point of Care 111 mg/dl (65-105)
[2022-07-14] MEDS: lisinopriL 5 MG TABLET PO (09:09)
[2022-07-14] MEDS: DOXYCYCLINE HYCLATE 100 MG TABLET PO (09:09)
[2022-07-14] MEDS: OSELTAMIVIR PHOSPHATE 75 MG CAPSULE PO (09:09)
[2022-07-14] MEDS: PREGABALIN (*CRX) 75 MG CAPSULE 150 MG PO (09:09)
[2022-07-14] MEDS: FAMOTIDINE 20 MG TABLET PO (09:09)
[2022-07-14] MEDS: FERROUS SULFATE 324 MG TABLET PO (09:09)
[2022-07-14] MEDS: ASPIRIN 81 MG ENTERIC TABLET PO (09:09)
[2022-07-14 09:36] VITALS: PULSE 73; RESP 18; O2SAT 97
[2022-07-14 09:49] VITALS: PULSE 70; RESP 20
--- NOTE | 2022-07-14 10:12 | PM.DS ---
DS: Admitting Diagnosis Discharge Date 07/14/22 Admitting Diagnosis Fever, nausea and vomiting DS: Discharge Diagnosis Discharge Diagnosis (1) Influenza A: Code(s): J10.1 - Influenza due to other identified influenza virus with other respiratory manifestations Status: Acute (2) Pneumonia: Qualifiers: Pneumonia type: due to unspecified organism Laterality: left Lung location: lower lobe of lung Qualified Code(s): J18.9 - Pneumonia, unspecified organism Code(s): J18.9 - Pneumonia, unspecified organism Status: Acute (3) Intractable nausea and vomiting: Code(s): R11.2 - Nausea with vomiting, unspecified Status: Acute (4) Elevated LFTs: Code(s): R79.89 - Other specified abnormal findings of blood chemistry Status: Acute (5) Immunosuppression due to drug therapy: Code(s): D84.821 - Immunodeficiency due to drugs; Z79.899 - Other [facility] (current) drug therapy Status: Acute (6) Psoriatic arthritis: Code(s): L40.50 - Arthropathic psoriasis, unspecified Status: Acute (7) Afib: Code(s): I48.91 - Unspecified atrial fibrillation Status: Acute DS: Summary Hospital Course Reason for hospitalization: 66yo female with CVA, DM and CAD here for fever, nausea and vomiting and found to have influenza A. Please see H&P for details Hospital Course: Patient presents with n/v and fevers. She was diagnosed with Influenza A. Treated with Tamiflu and neb treatments. Given the patient's recent and intractable vomiting there was concern about aspiration. CXR showing subtle left lung base airspace disease. Abx adjusted from Rocephin and azithromycin to Unasyn.? Pneumonia is likely associated with aspiration but could also be due to post-viral pneumonia such as Staph dso Doxycycline added. WBC normal and she remained on room air. Patient with intractable nausea and vomiting. Lipase was normal. Related to above. Symptoms slowly improved and diet was added and advanced as she toelrated. Eating normally now. The patient did have elevated LFTs.? This could be due to her recent intractable nausea and vomiting or more likely from her viral illness and/or from methotrexate and other immunosuppressive therapies.?Levels were trending down. Patient on MTX and Ixekizumab for psoriatic arthritis. These were held given current infections. CT A/P showing possible diverticulitis but no abdominal pain so felt clinically less likely. She had clinical improvement. She was able to be discharged home on 07/14/22 Status at Discharge Cognitive/behavioral status at discharge: Stable Time Spent with Patient Time attestation: Total time spent providing and/or coordinating discharge services: 35 minutes Time spent: Greater than 30 minutes Exam Narrative: AF 96.8 107/79 73 17 97% ra Gen - NARD HEENT - left periorbital bruising Chest - mild right base inspiratory crackles, nml RR CV - RRR S1/S2 Abd - Soft, NT/ND, Positive BS Ext - No pedal edema Psych - Nml mood and affect Skin - Warm and dry DS: Data Data Completed and Pending Labs on day of discharge: Labs from last 24 hours 07/14/22 07/13/22 07/13/22 08:03 19:54 16:40 POC Capillary Glucose 111 H 134 H 102 07/13/22 11:21 POC Capillary Glucose 115 H Discharge Plan Discharge Attending physician on discharge: David Martin Discharging Clinician: David Martin Anticipated Discharge Date/Time: 07/14/22 10:18 Patient Disposition: Home, Self-Care Activity: as tolerated Diet: diabetic Discharge Instructions: Please check glucose before meals and before bed. Record and bring into your doctor for review. Please complete your antibiotic course even if you are starting to feel well. Take precautions to avoid falls. Rise slowly from a lying or sitting position. Pause before standing or walking. Contact your doctor or call 911 and come to the Emergency [facility]
== END 2022-07-14 11:40 | disposition home or self-care (01) ==
LOC: ANHED 21:15 → ANH3MEDSUR 07-12 03:34
PROVIDERS: Admitting Provider Internal Medicine; Emergency Provider Emergency Medicine; Visit Provider Internal Medicine
DX: J10.1 Influenza due to other identified influenza virus with other respiratory manifestations (principal); J18.9 Pneumonia, unspecified organism; R11.2 Nausea with vomiting, unspecified; D84.821 Immunodeficiency due to drugs; R79.89 Other specified abnormal findings of blood chemistry; I25.10 Atherosclerotic heart disease of native coronary artery without angina pectoris; E11.9 Type 2 diabetes mellitus without complications; L40.50 Arthropathic psoriasis, unspecified; R50.9 Fever, unspecified; I48.91 Unspecified atrial fibrillation; K21.9 Gastro-esophageal reflux disease without esophagitis; I25.2 Old myocardial infarction; K57.90 Diverticulosis of intestine, part unspecified, without perforation or abscess without bleeding; K44.9 Diaphragmatic hernia without obstruction or gangrene; E78.00 Pure hypercholesterolemia, unspecified; Z20.822 Contact with and (suspected) exposure to COVID-19; Z86.73 Personal history of transient ischemic attack (TIA), and cerebral infarction without residual deficits; Z79.82 Long term (current) use of aspirin; Z79.51 Long term (current) use of inhaled steroids; Z79.01 Long term (current) use of anticoagulants; Z79.85 Long-term (current) use of injectable non-insulin antidiabetic drugs; Z79.891 Long term (current) use of opiate analgesic; Z79.899 Other long term (current) drug therapy; Z83.3 Family history of diabetes mellitus; Z82.49 Family history of ischemic heart disease and other diseases of the circulatory system; Z82.5 Family history of asthma and other chronic lower respiratory diseases
CPT/HCPCS: 36415; 71045; 74177; 80053; 81001; 82948; 83036; 83605; 83690; 85025; 85027; 87636; 93005; 94640; 96361; 96365; 96366; 96367; 96372; 96374; 96375; 99285; A9270; G0378; J0295; J0456; J0696; J2405; J2550; J7030; Q9967

== ENCOUNTER 2024-04-15 17:47 | Emergency (ER) | payer MEDICARE, SELFPAY ==
[2024-04-15 18:16] VITALS: BP 139/73; PULSE 79; RESP 15; TEMP 36.5; O2SAT 100
--- NOTE | 2024-04-15 18:32 | ED.SKABFB ---
HPI - Skin/Abscess/Foreign Bdy General Chief complaint: Skin/Abscess/Foreign Body Stated complaint: left leg issue, hx cellulitis Time Seen by Provider: 04/15/24 18:33 Source: patient, RN notes reviewed and old records reviewed Mode of arrival: ambulatory Limitations: no limitations History of Present Illness HPI narrative: Patient presents with complaints of redness and tenderness to the front of the left lower leg. She reports she began noticing symptoms 2 days ago, worsening. She denies any injury or trauma to the site. She reports that the affected area is slightly warm to the touch. She denies any fever, chills, sweats. She voices no other concerns at this time Related Data Home Medications Medication Instructions Recorded Confirmed apremilast 30 mg tablet (Otezla) 30 mg PO BID 09/16/21 04/15/24 aspirin 81 mg tablet 81 mg PO DAILY 09/16/21 04/15/24 atorvastatin 80 mg tablet 80 mg PO QHS 09/16/21 04/15/24 carisoprodol 350 mg tablet 350 mg PO HS 09/16/21 04/15/24 dapagliflozin propan 2.5 2 tablet PO DAILY 09/16/21 04/15/24 mg-metformin ER 1,000 mg tablet,ext rel 24hr (Xigduo XR) ergocalciferol (vitamin D2) 5,000 units PO DAILY 09/16/21 04/15/24 ezetimibe 10 mg tablet 10 mg PO DAILY 09/16/21 04/15/24 famotidine 20 mg tablet 20 mg PO BID 09/16/21 04/15/24 fenofibrate 54 mg tablet 108 mg PO DAILY 09/16/21 04/15/24 ixekizumab 80 mg/mL subcutaneous See Rx Instructions .Route .COMPLEX 09/16/21 04/15/24 auto-injector (Taltz Autoinjector) lisinopril 5 mg tablet 5 mg PO DAILY 09/16/21 04/15/24 mecobalamin (vitamin B12) 1,000 mcg PO DAILY 09/16/21 04/15/24 methotrexate sodium 2.5 mg tablet 10 mg PO BID 09/16/21 04/15/24 pregabalin 150 mg capsule 150 mg PO BID 09/16/21 04/15/24 rivaroxaban 20 mg tablet (Xarelto) 20 mg PO DAILY 09/16/21 04/15/24 semaglutide 1 mg/dose (4 mg/3 mL) 1 mg subcut WEEKLY 09/16/21 04/15/24 subcutaneous pen injector (Ozempic) tramadol 50 mg tablet 50 mg PO QID PRN Pain 09/16/21 04/15/24 trazodone 150 mg tablet 150 mg PO HS 09/16/21 04/15/24 ferrous sulfate 325 mg (65 mg 325 mg PO EVERY OTHER DAY 07/12/22 04/15/24 iron) tablet Allergies Allergy/AdvReac Type Severity Reaction Status Date / Time infliximab Allergy Severe paralysis Verified 04/15/24 18:00 Review of Systems Review of Systems: All systems reviewed & are unremarkable except as noted in HPI and below Constitutional: Constitutional: Reports no additional constitutional complaints ENT: Reports system reviewed and no additional complaints, except as documented Cardiovascular: Cardiovascular: Reports no additional cardiovascular complaints Respiratory: Respiratory: Reports no additional respiratory complaints Gastrointestinal: Gastrointestinal: Reports no additional gastrointestinal complaints Integumentary/Breasts: Skin/Breast: Reports system reviewed and no additional complaints, except as docu, Reports as per HPI, Reports erythema, Denies sores and Denies wounds PMFSH Past Medical History Medical History Afib CAD (coronary artery disease) CVA (cerebral vascular accident) Diabetes Elevated cholesterol 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
== END 2024-04-15 19:03 | disposition home or self-care (01) ==
PROVIDERS: Emergency Provider Nurse Practitioner Family
DX: L03.116 Cellulitis of left lower limb (principal); I48.91 Unspecified atrial fibrillation; I25.10 Atherosclerotic heart disease of native coronary artery without angina pectoris; E11.9 Type 2 diabetes mellitus without complications; Z79.84 Long term (current) use of oral hypoglycemic drugs; E78.00 Pure hypercholesterolemia, unspecified; K21.9 Gastro-esophageal reflux disease without esophagitis; I25.2 Old myocardial infarction; L40.50 Arthropathic psoriasis, unspecified; Z86.73 Personal history of transient ischemic attack (TIA), and cerebral infarction without residual deficits; Z79.82 Long term (current) use of aspirin; Z79.01 Long term (current) use of anticoagulants
CPT/HCPCS: 99213; G0463

== ENCOUNTER 2024-11-15 12:52 | Emergency (ER) | payer MEDICARE, SELFPAY ==
--- NOTE | 2024-11-15 13:02 | ED_ITS ---
HPI - General Adult General Chief complaint: Dental/Oral Stated complaint: right side of tongue cut Time Seen by Provider: 11/15/24 13:02 Source: patient Mode of arrival: ambulatory Limitations: no limitations History of Present Illness HPI narrative: 69 yo F presents with cut to R side of tongue. Bit her tongue during her sleep. Stopped bleeding. Concerned for infection due to beign immunocompromised. Requesting abx. All systems reviewed and negative except as noted above. Related Data Home Medications ?Medication ?Instructions ?Recorded ?Confirmed ?Last Taken ?Type apremilast 30 mg tablet (Otezla) 30 mg PO BID 09/16/21 11/15/24 Unknown History aspirin 81 mg tablet 81 mg PO DAILY 09/16/21 11/15/24 Unknown History atorvastatin 80 mg tablet 80 mg PO QHS 09/16/21 11/15/24 Unknown History carisoprodol 350 mg tablet 350 mg PO HS 09/16/21 11/15/24 Unknown History dapagliflozin propan 2.5 2 tablet PO DAILY 09/16/21 11/15/24 Unknown History mg-metformin ER 1,000 mg tablet,ext rel 24hr (Xigduo XR) ergocalciferol (vitamin D2) 5,000 units PO DAILY 09/16/21 11/15/24 Unknown History ezetimibe 10 mg tablet 10 mg PO DAILY 09/16/21 11/15/24 Unknown History famotidine 20 mg tablet 20 mg PO BID 09/16/21 11/15/24 Unknown History fenofibrate 54 mg tablet 108 mg PO DAILY 09/16/21 11/15/24 Unknown History ixekizumab 80 mg/mL subcutaneous See Rx Instructions .Route .COMPLEX 09/16/21 11/15/24 Unknown History auto-injector (Taltz Autoinjector) lisinopril 5 mg tablet 5 mg PO DAILY 09/16/21 11/15/24 Unknown History mecobalamin (vitamin B12) 1,000 mcg PO DAILY 09/16/21 11/15/24 Unknown History methotrexate sodium 2.5 mg tablet 10 mg PO BID 09/16/21 11/15/24 Unknown History pregabalin 150 mg capsule 150 mg PO BID 09/16/21 11/15/24 Unknown History rivaroxaban 20 mg tablet (Xarelto) 20 mg PO DAILY 09/16/21 11/15/24 Unknown History semaglutide 1 mg/dose (4 mg/3 mL) 1 mg subcut WEEKLY 09/16/21 11/15/24 Unknown History subcutaneous pen injector (Ozempic) tramadol 50 mg tablet 50 mg PO QID PRN Pain 09/16/21 11/15/24 Unknown History trazodone 150 mg tablet 150 mg PO HS 09/16/21 11/15/24 Unknown History ferrous sulfate 325 mg (65 mg 325 mg PO EVERY OTHER DAY 07/12/22 11/15/24 Unknown History iron) tablet Allergies Allergy/AdvReac Type Severity Reaction Status Date / Time infliximab Allergy Severe paralysis Verified 11/15/24 12:55 Review of Systems Review of Systems: CONSTITUTIONAL: Denies fever, chills, or sweats. EYES: Denies visual changes, redness, or discharge. ENT: Denies rhinorrhea, congestion, sore throat, or otalgia. CARDIOVASCULAR: Denies chest pain, palpitations, or edema. RESPIRATORY: Denies cough or dyspnea. GASTROINTESTINAL: Denies abdominal pain, nausea, vomiting, or diarrhea. GENITOURINARY: Denies dysuria or hematuria. SKIN: Denies rash or itching. Reports cut to right side of tongue. Bleeding controlled. MUSCULOSKELETAL: Denies back pain, joint pain, or myalgia. NEUROLOGIC: Denies headache, numbness, or weakness. PSYCHIATRIC: Denies anxiety or depression. All other systems reviewed are negative, except as documented in HPI. 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 Myocardial infarction Psoriatic arthritis Spinal stenosis Surgical History Surgical History H/O cervical spine surgery H/O repair of rotator cuff History of carpal tunnel surgery History of knee replacement Family History Family History Father Diabetes mellitus CAD (coronary artery disease) Sibling Diabetes mellitus CAD (coronary artery disease) Mother Asthma Social History Social History Social History: Code status: Full code Surrogate decision maker: Smoking status: Never smoker Tobacco type: cigarettes Alcohol intake: never Substance use: never Lack of Transportation: No Lack of Food: Never True Current Housing: I Have Housing Concerned About Future Housing: No Difficulty Paying Gas/Electric Bills: No Difficulty Paying for Meds: No Currently Unemployed: No Education: High School Diploma/GED Difficulty w/ Childcare or Family Care: No Living arrangements: with family Additional living arrangements comments: She lives with her . They were in 2001. She does not having biologic children but has 2 step children. 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 Gender identity (if verbalized by the patient): Female Spiritual care concerns: No Comments At time of signature, agree with nursing past medical, surgical, social and family history. There is no relevant family history pertinent to the presenting complaint. Exam Narrative: GENERAL: This is a well-nourished, well-developed patient, in no apparent distress. HEAD: normocephalic, atraumatic. EYES: PERRL. Sclera clear/white. Vision is grossly intact. EARS: External ears normal NOSE: External nose normal MOUTH: superficial laceration to R side of tongue. bleeding controlled. NECK: Neck supple, non-tender without lymphadenopathy, masses or thyromegaly. CARDIOVASCULAR: Regular rate and rhythm without murmurs, gallops, or rubs. RESPIRATORY: Clear to auscultation. Breath sounds equal bilaterally. No wheezes, rales, or rhonchi. SKIN: warm, Dry, intact with no suspicious lesions or rash, good texture and t urgor. NEURO: awake, alert, and oriented to person, place and time. There were no obvious focal neurologic abnormalities. EXTREMITIES: No joint tenderness, effusion, or edema noted. Course Course Level of Care: Express Care Visit Vital Signs Vital signs: Vital Signs Temperature 36.6 C 11/15/24 13:03 Pulse Rate 84 11/15/24 13:03 Respiratory Rate 16 11/15/24 13:03 Blood Pressure 149/70 H 11/15/24 13:03 Temperature 36.6 C 11/15/24 13:03 Pulse Rate 84 11/15/24 13:03 Respiratory Rate 16 11/15/24 13:03 Blood Pressure 149/70 H 11/15/24 13:03 reviewed Medical Decision Making MDM Narrative Medical decision making narrative: will treat with abx due to pt's concern. states she is immonocompromised. at this time there are no signs of infection. Please be advised this is a medical document. It is intended for [id number]-gqce communication. It is written in medical language and may contain unfamiliar abbreviations or verbiage. Medical documents are intended to carry relevant information, facts as evident, and the clinical opinion of the practitioner at the time of the encounter. This report may have been done utilizing a voice recognition system. Attempts have been made to correct errors. However, there may be uncorrected grammatical, spelling, and recognition errors present. The file time of this note does not necessarily represent the time of service. Vital Signs Vital Signs: Vital Signs Temperature 36.6 C 11/15/24 13:03 Pulse Rate 84 11/15/24 13:03 Respiratory Rate 16 11/15/24 13:03 Blood Pressure 149/70 H 11/15/24 13:03 Temperature 36.6 C 11/15/24 13:03 Pulse Rate 84 11/15/24 13:03 Respiratory Rate 16 11/15/24 13:03 Blood Pressure 149/70 H 11/15/24 13:03 Discharge Plan Discharge Clinical Impression: Laceration of tongue Patient Disposition: Home, Self-Care Condition: Stable Instructions: Antibiotic Form, Mouth Care (ED) Additional Instructions: Take antibiotic as prescribed to prevent wound infection. Continue with normal oral hygiene. Avoid eating hard, rough food on the right side until wound has healed. Follow-up with primary care physician as needed. Patient Language: Spanish Prescriptions: New amoxicillin-pot clavulanate 875-125 mg tablet 1 tablet PO Q12H 7 Days Qty: 14 0RF No Action carisoprodol 350 mg tablet 350 mg PO HS atorvastatin 80 mg tablet 80 mg PO QHS tramadol 50 mg tablet 50 mg PO QID PRN (Reason: Pain) Rx Instructions: pain 4-10 famotidine 20 mg tablet 20 mg PO BID methotrexate sodium 2.5 mg tablet 10 mg PO BID Rx Instructions: takes 1 x week on FRI trazodone 150 mg tablet 150 mg PO HS lisinopril 5 mg tablet 5 mg PO DAILY ezetimibe 10 mg tablet 10 mg PO DAILY pregabalin 150 mg capsule 150 mg PO BID fenofibrate 54 mg tablet 108 mg PO DAILY Xarelto 20 mg tablet 20 mg PO DAILY Otezla 30 mg tablet 30 mg PO BID Taltz Autoinjector 80 mg/mL auto-injector See Rx Instructions .ROUTE .COMPLEX Rx Instructions: 1 mg subcutaneously every 28 days,next dose 07/16/22 due Xigduo XR 2.5-1,000 mg tablet, IR - ER, biphasic 24hr 2 tablet PO DAILY Ozempic 1 mg/dose (4 mg/3 mL) pen injector 1 mg SUBCUT WEEKLY Patient Comments: weekly on Rx Instructions: takes weekly on Wednesdays aspirin 81 mg Tablet 81 mg PO DAILY ergocalciferol (vitamin D2) 5,000 units PO DAILY mecobalamin (vitamin B12) 1,000 mcg PO DAILY ferrous sulfate 325 mg (65 mg iron) Tablet 325 mg PO EVERY OTHER DAY Rx Instructions: last dose Fri/ vomiting Follow-up/Referrals: PHYSICIAN NOT ON STAFF,NONSTAFF [Primary Care Provider] - Time of Disposition: 13:11
[2024-11-15 13:03] VITALS: BP 149/70; PULSE 84; RESP 16; TEMP 36.6
== END 2024-11-15 13:14 | disposition home or self-care (01) ==
PROVIDERS: Emergency Provider Nurse Practitioner Family
DX: S01.512A Laceration without foreign body of oral cavity, initial encounter (principal); X58.XXXA Exposure to other specified factors, initial encounter; I48.91 Unspecified atrial fibrillation; I25.10 Atherosclerotic heart disease of native coronary artery without angina pectoris; E11.9 Type 2 diabetes mellitus without complications; E78.00 Pure hypercholesterolemia, unspecified; K21.9 Gastro-esophageal reflux disease without esophagitis; I25.2 Old myocardial infarction; L40.50 Arthropathic psoriasis, unspecified; M48.00 Spinal stenosis, site unspecified; Z86.73 Personal history of transient ischemic attack (TIA), and cerebral infarction without residual deficits; Z79.01 Long term (current) use of anticoagulants; Z79.82 Long term (current) use of aspirin
CPT/HCPCS: 99213; G0463

== ENCOUNTER 2025-06-09 10:10 | Emergency (ER) | payer MEDICARE, SELFPAY ==
--- NOTE | 2025-06-09 10:21 | ED.GENADULT ---
HPI - General Adult General Chief complaint: Upper Respiratory Infection Stated complaint: Sore Throat Time Seen by Provider: 06/09/25 10:22 Source: patient, RN notes reviewed and old records reviewed Mode of arrival: ambulatory Limitations: no limitations History of Present Illness HPI narrative: 69 year old female who presents to [facility] care with complaints of sore throat,ears feel clogged and runny nose since Friday. Patient reports no cough or any fevers, chills or sweats or any GI symptoms, no headaches or any body aches more than usual she states.Patient reports that she took some Benadryl this morning. Patient does have history of psoriatric arthritis with chronic neck pain. MD complaint: sore throat, ears and head feels clogged and runny nose Onset (ago): day(s) (06/07/2025) Severity: moderate Treatments prior to arrival: other (Benadryl) Related Data Home Medications ?Medication ?Instructions ?Recorded ?Confirmed ?Last Taken ?Type apremilast 30 mg tablet (Otezla) 30 mg PO BID 09/16/21 11/15/24 Unknown History Held on 07/14/22. Instructions: HOLD - resume whn okay with your doctor. aspirin 81 mg tablet 81 mg PO DAILY 09/16/21 11/15/24 Unknown History atorvastatin 80 mg tablet 80 mg PO QHS 09/16/21 11/15/24 Unknown History carisoprodol 350 mg tablet 350 mg PO HS 09/16/21 11/15/24 Unknown History dapagliflozin propan 2.5 2 tablet PO DAILY 09/16/21 11/15/24 Unknown History mg-metformin ER 1,000 mg tablet,ext rel 24hr (Xigduo XR) ergocalciferol (vitamin D2) 5,000 units PO DAILY 09/16/21 11/15/24 Unknown History ezetimibe 10 mg tablet 10 mg PO DAILY 09/16/21 11/15/24 Unknown History famotidine 20 mg tablet 20 mg PO BID 09/16/21 11/15/24 Unknown History fenofibrate 54 mg tablet 108 mg PO DAILY 09/16/21 11/15/24 Unknown History ixekizumab 80 mg/mL subcutaneous See Rx Instructions .Route .COMPLEX 09/16/21 11/15/24 Unknown History auto-injector (Taltz Autoinjector) Held on 07/14/22. Instructions: HOLD - resume whn okay with your doctor. lisinopril 5 mg tablet 5 mg PO DAILY 09/16/21 11/15/24 Unknown History mecobalamin (vitamin B12) 1,000 mcg PO DAILY 09/16/21 11/15/24 Unknown History methotrexate sodium 2.5 mg tablet 10 mg PO BID 09/16/21 11/15/24 Unknown History Held on 07/14/22. Instructions: HOLD - resume whn okay with your doctor. pregabalin 150 mg capsule 150 mg PO BID 09/16/21 11/15/24 Unknown History rivaroxaban 20 mg tablet (Xarelto) 20 mg PO DAILY 09/16/21 11/15/24 Unknown History semaglutide 1 mg/dose (4 mg/3 mL) 1 mg subcut WEEKLY 09/16/21 11/15/24 Unknown History subcutaneous pen injector (Ozempic) tramadol 50 mg tablet 50 mg PO QID PRN Pain 09/16/21 11/15/24 Unknown History trazodone 150 mg tablet 150 mg PO HS 09/16/21 11/15/24 Unknown History ferrous sulfate 325 mg (65 mg 325 mg PO EVERY OTHER DAY 07/12/22 11/15/24 Unknown History iron) tablet Allergies Allergy/AdvReac Type Severity Reaction Status Date / Time infliximab Allergy Severe paralysis Verified 11/15/24 12:55 Review of Systems Review of Systems: CONSTITUTIONAL: Denies malaise, chills, sweats, or fever. EYES: Denies visual changes, redness, or discharge. ENT: Reports rhinorrhea, congestion, sinus pain, otalgia and sore throat. CARDIOVASCULAR: Denies chest pain, palpitations, or edema. RESPIRATORY: Reports no cough.? Denies dyspnea. GASTROINTESTINAL: Denies abdominal pain, nausea, vomiting, diarrhea SKIN: Denies rash or itching. MUSCULOSKELETAL: Denies myalgia. NEUROLOGIC: Denies headache. 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 GERD (gastroesophageal reflux disease) CAD (coronary artery disease) Myocardial infarction CVA (cerebral vascular accident) Diabetes Spinal stenosis Psoriatic arthritis Elevated cholesterol Afib Surgical History Surgical History H/O repair of rotator cuff H/O cervical spine surgery History of knee replacement History of carpal tunnel surgery Family History Family History Father Diabetes mellitus CAD (coronary artery disease) Sibling Diabetes mellitus CAD (coronary artery disease) Mother Asthma Social History Social History (Updated 06/10/25 @ 09:25 by Kristi Weber APRN) Social History: Code status: Full code Surrogate decision maker: Smoking status: Never smoker Tobacco type: cigarettes Alcohol intake: never Substance use: never Other substance usage details: takes tramadol for acute pain and does get epidural injections for her back Lack of Transportation: No Lack of Food: Never True Current Housing: I Have Housing Concerned About Future Housing: No Difficulty Paying Gas/Electric Bills: No Difficulty Paying for Meds: No Currently Unemployed: No Education: High School Diploma/GED Difficulty w/ Childcare or Family Care: No Living arrangements: with family Additional living arrangements comments: She lives with her . They were in 2001. She does not having biologic children but has 2 step children. 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 Gender identity (if verbalized by the patient): Female Spiritual care concerns: No Comments At time of signature, agree with nursing past medical, surgical, social and family history. There is no relevant family history pertinent to the presenting complaint Exam Narrative: GENERAL: Well-appearing, well-nourished, and in no acute distress. HEAD: Normocephalic EYES: PERRLA, conjunctivae clear ENT: Nares clear, turbinates edematous and erythematous, clear discharge. Mucous membranes moist. TM pearly butler with dull light reflex bilaterally; no tragal tenderness. Oropharynx erythematous without lesions. Tonsils not enlarged and without exudate, no drooling, no hoarseness, no trismus, uvula midline.post nasal drainage noted. NECK: No lymphadenopathy, decreased mobility of neck related to previous neck fusions CHEST: Clear to auscultation, breath sounds equal. No wheezing, rhonchi, rales, or stridor. No respiratory distress, speaks in full sentences.no cough noted SAO2 98% on room air HEART: Regular rate and rhythm. No murmur heard. SKIN: Warm, dry, no rash. NEURO: Alert and oriented x3. PSYCH: Normal mood and affect Course Course Emergency Course: Patient is aware of diagnosis, understands and agrees to treatment plan.? Anticipatory guidance given.? Patient agrees to follow-up as directed and is aware of reasons to seek care at the emergency department. Portions of this record may have been created with voice recognition software Level of Care: Express Care Visit Vital Signs Vital signs: Vital Signs Temperature 36.4 C L 06/09/25 10:22 Pulse Rate 76 06/09/25 10:22 Respiratory Rate 16 06/09/25 10:22 Blood Pressure 137/72 06/09/25 10:22 Pulse Oximetry 98 06/09/25 10:22 Oxygen Delivery Room Air 06/09/25 10:22 Temperature 36.4 C L 06/09/25 10:22 Pulse Rate 76 06/09/25 10:22 Respiratory Rate 16 06/09/25 10:22 Blood Pressure 137/72 06/09/25 10:22 Pulse Oximetry 98 06/09/25 10:22 Oxygen Delivery Room Air 06/09/25 10:22 Reviewed Medical Decision Making Differential Diagnosis Differential Diagnosis: URI, otalgia, otitis media, sinus drainage, pharyngitis, strep pharyngitis, viral infection,Influenza, COVID Medical Records Medical records reviewed: Yes I reviewed the external patient's medical records. Vital Signs Vital Signs: Vital Signs Temperature 36.4 C L 06/09/25 10:22 Pulse Rate 76 06/09/25 10:22 Respiratory Rate 16 06/09/25 10:22 Blood Pressure 137/72 06/09/25 10:22 Pulse Oximetry 98 06/09/25 10:22 Oxygen Delivery Room Air 06/09/25 10:22 Temperature 36.4 C L 06/09/25 10:22 Pulse Rate 76 06/09/25 10:22 Respiratory Rate 16 06/09/25 10:22 Blood Pressure 137/72 06/09/25 10:22 Pulse Oximetry 98 06/09/25 10:22 Oxygen Delivery Room Air 06/09/25 10:22 Lab Data Lab results reviewed: Yes I reviewed the patient's lab results. Lab results narrative: strep screen negative, culture sent, Influenza A&B negative, Covid antigen negative Labs: Lab Results 06/09/25 Range/Units 10:20 POC Influenza A Ag Negative (Negative) POC Influenza B Ag Negative (Negative) POC SARS CoV-2 Ag Negative (Negative) POC Grp A Strep Screen Negative (Negative) reviewed Critical Care Time Critical Care Time Critical Care Time: No Discharge Plan Discharge Clinical Impression: Upper respiratory infection Qualifiers: URI type: unspecified URI Qualified Code(s): J06.9 - Acute upper respiratory infection, unspecified Acute pharyngitis Qualifiers: Pharyngitis/tonsillitis etiology: unspecified etiology Qualified Code(s): J02.9 - Acute pharyngitis, unspecified Patient Disposition: Home Condition: Stable Instructions: Pharyngitis (ED), Upper Respiratory Infection (ED) Additional Instructions: Increase fluids especially juices and water Cocs-ysb-czvvani cough and cold medicine of your choice for your symptoms Zyrtec Claritin or Jeannine daily include Coricidin brand decongestant heat to the face 20-30 minutes 4-6 times a day for pain Salt water gargles, throat lozenges or throat sprays as desired Nasal spray as prescribed Medrol Dosepak take as prescribed monitor blood sugars while on this medication If your symptoms persist, change or worsen significantly before you can contact your personal physician then please, without delay, go to the emergency department for further evaluation. Follow-up with PCP in 7-10 days or sooner if needed Follow up with PCP soon in regards to your blood pressure which is elevated above threshold for referral. Blood pressure above 120/80 may indicate pre-hypertension. 137/72 Your strep test today was negative. A throat culture will be sent to the laboratory for further testing. IF the test is positive, you will receive a phone call within 48 hours and an appropriate antibiotic will be initiated at that time. Patient Language: Malay Prescriptions: New methylprednisolone [Medrol (Joshua)] 4 mg tablets,dose pack See Rx Instructions .ROUTE .COMPLEX Qty: 21 0RF Rx Instructions: orally per package directions mometasone [Nasonex 24hr Allergy] 50 mcg/actuation spray,non-aerosol 2 spray intranasal DAILY Qty: 17 0RF Rx Instructions: administer into each nostril No Action amoxicillin-pot clavulanate 875-125 mg tablet 1 tablet PO Q12H 7 Days Qty: 14 0RF carisoprodol 350 mg tablet 350 mg PO HS atorvastatin 80 mg tablet 80 mg PO QHS tramadol 50 mg tablet 50 mg PO QID PRN (Reason: Pain) Rx Instructions: pain 4-10 famotidine 20 mg tablet 20 mg PO BID methotrexate sodium 2.5 mg tablet 10 mg PO BID Rx Instructions: takes 1 x week on FRI trazodone 150 mg tablet 150 mg PO HS lisinopril 5 mg tablet 5 mg PO DAILY ezetimibe 10 mg tablet 10 mg PO DAILY pregabalin 150 mg capsule 150 mg PO BID fenofibrate 54 mg tablet 108 mg PO DAILY Xarelto 20 mg tablet 20 mg PO DAILY Otezla 30 mg tablet 30 mg PO BID Taltz Autoinjector 80 mg/mL auto-injector See Rx Instructions .ROUTE .COMPLEX Rx Instructions: 1 mg subcutaneously every 28 days,next dose 07/16/22 due Xigduo XR 2.5-1,000 mg tablet, IR - ER, biphasic 24hr 2 tablet PO DAILY Ozempic 1 mg/dose (4 mg/3 mL) pen injector 1 mg SUBCUT WEEKLY Patient Comments: weekly on Rx Instructions: takes weekly on Wednesdays aspirin 81 mg Tablet 81 mg PO DAILY ergocalciferol (vitamin D2) 5,000 units PO DAILY mecobalamin (vitamin B12) 1,000 mcg PO DAILY ferrous sulfate 325 mg (65 mg iron) Tablet 325 mg PO EVERY OTHER DAY Rx Instructions: last dose Fri/ vomiting Follow-up/Referrals: PHYSICIAN,FLIGHT OPERATIONS MANAGER [Primary Care Provider, Internal Medicine] Time of Disposition: 10:54 Quality Mary Coma Scale Eyes: Open Verbal: Oriented and Alert Motor: Follows Commands Mary Coma Total Score: 15
[2025-06-09 10:22] VITALS: BP 137/72; PULSE 76; RESP 16; TEMP 36.4; O2SAT 98
[2025-06-09 10:52] LABS: EDCOVIDSCREEN Negative (Negative); EDINFLUASCREEN Negative (Negative); EDINFLUBSCREEN Negative (Negative); EDSTREPNEGPOS1 Negative (Negative)
== END 2025-06-09 10:59 | disposition home or self-care (01) ==
PROVIDERS: Emergency Provider Registered Nurse
DX: J06.9 Acute upper respiratory infection, unspecified (principal); J02.9 Acute pharyngitis, unspecified; Z20.822 Contact with and (suspected) exposure to COVID-19; I25.10 Atherosclerotic heart disease of native coronary artery without angina pectoris; I25.2 Old myocardial infarction; E11.9 Type 2 diabetes mellitus without complications; Z79.85 Long-term (current) use of injectable non-insulin antidiabetic drugs; I48.91 Unspecified atrial fibrillation; E78.00 Pure hypercholesterolemia, unspecified; L40.50 Arthropathic psoriasis, unspecified; M48.00 Spinal stenosis, site unspecified; K21.9 Gastro-esophageal reflux disease without esophagitis; Z79.01 Long term (current) use of anticoagulants; Z79.82 Long term (current) use of aspirin
CPT/HCPCS: 87081; 87426; 87804; 87880; 99213; G0463

== ENCOUNTER 2025-06-15 15:54 | Emergency (ER) | payer MEDICARE, SELFPAY ==
--- NOTE | ~2025-06-15 | XR_ITS ---
EXAMINATION: XR shoulder RT min 2V, 06/15/2025 16:48 CDT HISTORY: RT shoulder pain after a fall yesterday COMPARISON: No comparisons available. Findings: No acute fracture or malalignment. Moderate degenerative changes with calcific tendinopathy Soft tissues unremarkable. Impression: No acute fracture or malalignment. Reviewed, dictated and finalized at location P. Impression: No acute fracture or malalignment.
--- NOTE | ~2025-06-15 | XR_ITS ---
EXAMINATION: XR wrist RT min 3V, 06/15/2025 16:48 CDT HISTORY: Rt wrist pain after a fall yesterday COMPARISON: No comparisons available. Findings: No acute fracture or malalignment. No significant degenerative changes. Soft tissues unremarkable. Impression: No acute fracture or malalignment. Reviewed, dictated and finalized at location P. Impression: No acute fracture or malalignment.
[2025-06-15 16:20] VITALS: BP 152/78; PULSE 89; RESP 20; TEMP 36.6; O2SAT 100
--- NOTE | 2025-06-15 16:52 | ED.GENADULT ---
HPI - General Adult General Chief complaint: Fall Stated complaint: fall Time Seen by Provider: 06/15/25 16:38 Source: patient and RN notes reviewed Mode of arrival: ambulatory Limitations: no limitations History of Present Illness HPI narrative: 69-year-old female patient presents today after she tripped and fell at home yesterday, injuring her right wrist, right shoulder, and causing a wound to her right forearm. Denies head injury or loss of consciousness. Today she is unable to lift her right arm. Denies numbness or tingling in the arm or hand. She rates her pain 10/10. She is up-to-date on her tetanus vaccine. She takes Xarelto for AFib and has not been able to get her arm wound to stop bleeding. Related Data Home Medications ?Medication ?Instructions ?Recorded ?Confirmed ?Last Taken ?Type apremilast 30 mg tablet (Otezla) 30 mg PO BID 09/16/21 11/15/24 Unknown History aspirin 81 mg tablet 81 mg PO DAILY 09/16/21 11/15/24 Unknown History atorvastatin 80 mg tablet 80 mg PO QHS 09/16/21 11/15/24 Unknown History carisoprodol 350 mg tablet 350 mg PO HS 09/16/21 11/15/24 Unknown History dapagliflozin propan 2.5 2 tablet PO DAILY 09/16/21 11/15/24 Unknown History mg-metformin ER 1,000 mg tablet,ext rel 24hr (Xigduo XR) ergocalciferol (vitamin D2) 5,000 units PO DAILY 09/16/21 11/15/24 Unknown History ezetimibe 10 mg tablet 10 mg PO DAILY 09/16/21 11/15/24 Unknown History fenofibrate 54 mg tablet 108 mg PO DAILY 09/16/21 11/15/24 Unknown History mecobalamin (vitamin B12) 1,000 mcg PO DAILY 09/16/21 11/15/24 Unknown History methotrexate sodium 2.5 mg tablet 10 mg PO BID 09/16/21 11/15/24 Unknown History pregabalin 150 mg capsule 150 mg PO BID 09/16/21 11/15/24 Unknown History rivaroxaban 20 mg tablet (Xarelto) 20 mg PO DAILY 09/16/21 11/15/24 Unknown History semaglutide 1 mg/dose (4 mg/3 mL) 1 mg subcut WEEKLY 09/16/21 11/15/24 Unknown History subcutaneous pen injector (Ozempic) tramadol 50 mg tablet 50 mg PO QID PRN Pain 09/16/21 11/15/24 Unknown History trazodone 150 mg tablet 150 mg PO HS 09/16/21 11/15/24 Unknown History ferrous sulfate 325 mg (65 mg 325 mg PO EVERY OTHER DAY 07/12/22 11/15/24 Unknown History iron) tablet minoxidil 2.5 mg tablet mg 06/15/25 Unknown History risankizumab-rzaa 150 mg/mL mg subcut 06/15/25 Unknown History subcutaneous pen injector (Skyrizi) spironolactone 100 mg tablet mg 06/15/25 Unknown History Allergies Allergy/AdvReac Type Severity Reaction Status Date / Time infliximab Allergy Severe paralysis Verified 06/15/25 16:21 [facility] Past Medical History 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 GERD (gastroesophageal reflux disease) CAD (coronary artery disease) Myocardial infarction CVA (cerebral vascular accident) Diabetes Spinal stenosis Psoriatic arthritis Elevated cholesterol Afib Surgical History Surgical History H/O repair of rotator cuff H/O cervical spine surgery History of knee replacement History of carpal tunnel surgery Family History Family History Father Diabetes mellitus CAD (coronary artery disease) Sibling Diabetes mellitus CAD (coronary artery disease) Mother Asthma Social History Social History Social History: Code status: Full code Surrogate decision maker: Smoking status: Never smoker Tobacco type: cigarettes Alcohol intake: never Substance use: never Other substance usage details: takes tramadol for acute pain and does get epidural injections for her back Lack of Transportation: No Lack of Food: Never True Current Housing: I Have Housing Concerned About Future Housing: No Difficulty Paying Gas/Electric Bills: No Difficulty Paying for Meds: No Currently Unemployed: No Education: High School Diploma/GED Difficulty w/ Childcare or Family Care: No Living arrangements: with family Additional living arrangements comments: She lives with her . They were in 2001. She does not having biologic children but has 2 step children. 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 Gender identity (if verbalized by the patient): Female Spiritual care concerns: No Comments At time of signature, I have reviewed and agree with nursing past medical, surgical, social and family history unless otherwise noted. Please see nursing chart for further information. There is no relevant family history pertinent to the presenting complaint Exam Narrative: GENERAL: Well-appearing, well-nourished, and in no acute distress. HEAD: Normocephalic, atraumatic. EYES: EOMI. No redness or drainage. Conjunctivae normal. ENT: Mucous membranes pink and moist. NECK: Normal AROM. CHEST: No respiratory distress. EXTREMITIES: Right arm: Tenderness about the shoulder with decreased range of motion in all directions due to pain. No pain or tenderness to the elbow. Moderate swelling and tenderness about the wrist with decreased range of motion. No snuffbox tenderness. Approx 5cm superficial skin tear with jagged edges. Scant active bleeding at time of exam. SKIN: Warm, dry, no rash. Capillary refill normal. Normal skin turgor. NEURO: No focal deficits. Alert and oriented x3. Gait steady. PSYCH: Normal affect. No signs of depression or anxiety. Course Course Level of Care: Express Care Visit Vital Signs Vital signs: Vital Signs Temperature 97.9 F 06/15/25 16:20 Pulse Rate 89 06/15/25 16:20 Respiratory Rate 20 06/15/25 16:20 Blood Pressure 152/78 H 06/15/25 16:20 Pulse Oximetry 100 06/15/25 16:20 Oxygen Delivery Room Air 06/15/25 16:20 Temperature 97.9 F 06/15/25 16:20 Pulse Rate 89 06/15/25 16:20 Respiratory Rate 20 06/15/25 16:20 Blood Pressure 152/78 H 06/15/25 16:20 Pulse Oximetry 100 06/15/25 16:20 Oxygen Delivery Room Air 06/15/25 16:20 Reviewed Medical Decision Making MDM Narrative Medical decision making narrative: 69-year-old female patient presents today after she tripped and fell at home yesterday, injuring her right wrist, right shoulder, and causing a wound to her right forearm. Denies head injury or loss of consciousness. Today she is unable to lift her right arm. Denies numbness or tingling in the arm or hand. She rates her pain 10/10. She is up-to-date on her tetanus vaccine. She takes Xarelto for AFib and has not been able to get her arm wound to stop bleeding. Upon exam, patient a superficial skin tear to the right forearm that has some scant bleeding. Tiny pieces of dried up skin were cut off and pressure dressing was applied. Right wrist has generalized edema and tenderness, x-ray negative. Right shoulder has generalized tenderness with decreased range of motion due to pain. The shoulder x-ray is negative as well. Recommend patient follow-up with PCP or orthopedics in 7-10 days if wrist and shoulder pain is not improved. Vital signs stable. Patient agrees with plan. Anticipatory guidance given. Differential Diagnosis Differential Diagnosis: Skin tear, abrasion, laceration, fracture, contusion, sprain Vital Signs Vital Signs: Vital Signs Temperature 97.9 F 06/15/25 16:20 Pulse Rate 89 06/15/25 16:20 Respiratory Rate 20 06/15/25 16:20 Blood Pressure 152/78 H 06/15/25 16:20 Pulse Oximetry 100 06/15/25 16:20 Oxygen Delivery Room Air 06/15/25 16:20 Temperature 97.9 F 06/15/25 16:20 Pulse Rate 89 06/15/25 16:20 Respiratory Rate 20 06/15/25 16:20 Blood Pressure 152/78 H 06/15/25 16:20 Pulse Oximetry 100 06/15/25 16:20 Oxygen Delivery Room Air 06/15/25 16:20 Imaging Data Radiologist's impression: ITS Impressions Shoulder X-Ray 06/15/25 17:11 Impression: No acute fracture or malalignment. Wrist X-Ray 06/15/25 17:12 Impression: No acute fracture or malalignment. Critical Care Time Critical Care Time Critical Care Time: No Discharge Plan Discharge Clinical Impression: Skin tear of right forearm without complication Qualifiers: Encounter type: initial encounter Qualified Code(s): S51.811A - Laceration without foreign body of right forearm, initial encounter Injury of right shoulder Qualifiers: Encounter type: initial encounter Qualified Code(s): S49.91XA - Unspecified injury of right shoulder and upper arm, initial encounter Right wrist sprain Qualifiers: Encounter type: initial encounter Wrist sprain location: unspecified location Qualified Code(s): S63.501A - Unspecified sprain of right wrist, initial encounter Fall from slip, trip, or stumble Qualifiers: Encounter type: initial encounter Qualified Code(s): W01.0XXA - Fall on same level from slipping, tripping and stumbling without subsequent striking against object, initial encounter Patient Disposition: Home Condition: Stable Instructions: Shoulder Sprain (ED), Skin Tear (ED), Wrist Sprain (ED) Additional Instructions: Your shoulder and wrist x-rays are negative for fracture today. The skin tear on your arm has been trimmed and dressed. Wash it daily with soap and water, dry, and replace the dressing until scabbed over or healed. You may apply Vaseline under the dressing if you wish. Monitor for any signs of infection such as redness, swelling, increased pain, or drainage, and see your doctor if you note any. If your wrist or shoulder pain does not improve in 7-10 days, please follow-up with your PCP or orthopedist for further evaluation. Patient Language: Hong Konger Prescriptions: No Action mometasone [Nasonex 24hr Allergy] 50 mcg/actuation spray,non-aerosol 2 spray intranasal DAILY Qty: 17 0RF Rx Instructions: administer into each nostril spironolactone 100 mg tablet minoxidil 2.5 mg tablet Skyrizi 150 mg/mL pen injector SUBCUT carisoprodol 350 mg tablet 350 mg PO HS atorvastatin 80 mg tablet 80 mg PO QHS tramadol 50 mg tablet 50 mg PO QID PRN (Reason: Pain) Rx Instructions: pain 4-10 methotrexate sodium 2.5 mg tablet 10 mg PO BID Rx Instructions: takes 1 x week on FRI trazodone 150 mg tablet 150 mg PO HS ezetimibe 10 mg tablet 10 mg PO DAILY pregabalin 150 mg capsule 150 mg PO BID fenofibrate 54 mg tablet 108 mg PO DAILY Xarelto 20 mg tablet 20 mg PO DAILY Otezla 30 mg tablet 30 mg PO BID Xigduo XR 2.5-1,000 mg tablet, IR - ER, biphasic 24hr 2 tablet PO DAILY Ozempic 1 mg/dose (4 mg/3 mL) pen injector 1 mg SUBCUT WEEKLY Patient Comments: weekly on Rx Instructions: takes weekly on Wednesdays aspirin 81 mg Tablet 81 mg PO DAILY ergocalciferol (vitamin D2) 5,000 units PO DAILY mecobalamin (vitamin B12) 1,000 mcg PO DAILY ferrous sulfate 325 mg (65 mg iron) Tablet 325 mg PO EVERY OTHER DAY Rx Instructions: last dose Fri/ vomiting Follow-up/Referrals: Catie,Ana [Other] Thomas Barreto MD [Physician, Orthopedics] Time of Disposition: 17:38
== END 2025-06-15 17:40 | disposition home or self-care (01) ==
PROVIDERS: Emergency Provider Nurse Practitioner
DX: S51.811A Laceration without foreign body of right forearm, initial encounter (principal); S49.91XA Unspecified injury of right shoulder and upper arm, initial encounter; S63.501A Unspecified sprain of right wrist, initial encounter; W01.0XXA Fall on same level from slipping, tripping and stumbling without subsequent striking against object, initial encounter; I25.10 Atherosclerotic heart disease of native coronary artery without angina pectoris; I25.2 Old myocardial infarction; E11.9 Type 2 diabetes mellitus without complications; Z79.85 Long-term (current) use of injectable non-insulin antidiabetic drugs; I48.91 Unspecified atrial fibrillation; E78.00 Pure hypercholesterolemia, unspecified; M48.00 Spinal stenosis, site unspecified; K21.9 Gastro-esophageal reflux disease without esophagitis; Z86.73 Personal history of transient ischemic attack (TIA), and cerebral infarction without residual deficits; Z79.82 Long term (current) use of aspirin; Z79.01 Long term (current) use of anticoagulants
CPT/HCPCS: 73030; 73110; 99214; G0463

== ENCOUNTER 2025-06-17 12:06 | Emergency (ER) | payer MEDICARE, SELFPAY ==
[2025-06-17 12:08] VITALS: BP 151/115; PULSE 129; RESP 16; TEMP 36.8; O2SAT 96
--- OUTSIDE RECORDS SUMMARY | 2025-06-17 12:09 | XMS_ITS | Encounter Summary ---
Author Organization [facility] Health Address [address] [place] [address] Care Team Providers Care Ingot Weigher Name Role Phone Nathan Diez Primary Care Provider [phone] Hamlet Rodriguez MD Primary Care Provider [phone] Encounter Details Date Type Department Care Team (Late st Contact Info) Description 03/22/2010 [facility] Unknown, Provider Social History Tobacco Use Types Packs/Day Years Used Date Smoking Tobacco: Every Day Comments:1 1/2 pks per week Alcohol Use Standard Drinks/Week Comments No 0 (1 standard drink = 0.6 oz pur e alcohol) rarely Comments No Sex and Gender Information Value Date Recorded Sex Assigned at Not on file 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
--- OUTSIDE RECORDS SUMMARY | 2025-06-17 12:09 | XMS_ITS | Encounter Summary ---
Author Organization [facility] Health Address [address] [place] [address] Care Team Providers Care Furnace Unloader Name Role Phone Nathan Diez Primary Care Provider [phone] Hamlet Rodriguez MD Primary Care Provider [phone] Encounter Details Date Type Department Care Team (Late st Contact Info) Description 04/24/2010 [facility] Visit [facility]PT Frank Lora MD [address] [place] [id number] Social History Tobacco Use Types Packs/Day Years Used Date Smoking Tobacco: Every Day Comments:1 1/2 pks per week Alcohol Use Standard Drinks/Week Comments No 0 (1 standard drink = 0.6 oz pur e alcohol) rarely Comments No Sex and Gender Information Value Date Recorded Sex Assigned at Not on file 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
--- OUTSIDE RECORDS SUMMARY | 2025-06-17 12:09 | XMS_ITS | Encounter Summary ---
Author Organization [facility] Health Address [address] [place] [address] Care Team Providers Care Chemist Pharmaceutical Name Role Phone Nathan Diez Primary Care Provider [phone] Hamlet Rodriguez MD Primary Care Provider [phone] Encounter Details Date Type Department Care Team (Late st Contact Info) Description 06/11/2010 [facility] Unknown, Provider Social History Tobacco Use Types Packs/Day Years Used Date Smoking Tobacco: Every Day Comments:1 1/2 pks per week Alcohol Use Standard Drinks/Week Comments No 0 (1 standard drink = 0.6 oz pur e alcohol) rarely Comments No Sex and Gender Information Value Date Recorded Sex Assigned at Not on file 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
--- OUTSIDE RECORDS SUMMARY | 2025-06-17 12:09 | XMS_ITS | Encounter Summary ---
Author Organization [facility] Health Address [address] [place] [address] Care Team Providers Care Electron Microprobe Operator Name Role Phone Nathan Diez Primary Care Provider [phone] Hamlet Rodriguez MD Primary Care Provider [phone] Encounter Details Date Type Department Care Team (Late st Contact Info) Description 06/27/2010 [facility] Unknown, Provider Social History Tobacco Use Types Packs/Day Years Used Date Smoking Tobacco: Every Day Comments:1 1/2 pks per week Alcohol Use Standard Drinks/Week Comments No 0 (1 standard drink = 0.6 oz pur e alcohol) rarely Comments No Sex and Gender Information Value Date Recorded Sex Assigned at Not on file Legal Sex Female 4:23 AM KAIAKO KURA TUARUA Gender Identity Not on file Sexual Orientation Not on file documented as of this encounter Plan of Treatment Not on file documented as of this encounter Visit Diagnoses Not on filedocumented in this encounter Care Teams Electron Microprobe Operator Relationship Specialty Start Date End Date Jose Diez MD PCP - General 02/13/10 03/21/11 Hamlet Rodriguez MD [address] [place] [address] [address] [place] [address] PCP - General 03/22/11 documented as of this encounter
--- OUTSIDE RECORDS SUMMARY | 2025-06-17 12:09 | XMS_ITS | Encounter Summary ---
Author Organization [facility] Health Address [address] [place] [address] Care Team Providers Care Beam Carrier Hauler Pusher Name Role Phone Nathan Diez Primary Care Provider [phone] Hamlet Rodriguez MD Primary Care Provider [phone] Encounter Details Date Type Department Care Team (Late st Contact Info) Description 11/27/2009 [facility] Unknown, Provider Social History Tobacco Use Types Packs/Day Years Used Date Smoking Tobacco: Every Day Comments:1 1/2 pks per week Alcohol Use Standard Drinks/Week Comments No 0 (1 standard drink = 0.6 oz pur e alcohol) rarely Comments No Sex and Gender Information Value Date Recorded Sex Assigned at Not on file 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
--- OUTSIDE RECORDS SUMMARY | 2025-06-17 12:09 | XMS_ITS | Encounter Summary ---
Author Organization [facility] Health Address [address] [place] [address] Care Team Providers Care Tag Writer Name Role Phone Nathan Diez Primary Care Provider [phone] Hamlet Rodriguez MD Primary Care Provider [phone] Encounter Details Date Type Department Care Team (Late st Contact Info) Description 06/22/2010 [facility] Visit [facility]NAL NON-[facility] DEPT Frank Lora MD [address] [place] [id number] Social History Tobacco Use Types Packs/Day Years Used Date Smoking Tobacco: Every Day Comments:1 1/2 pks per week Alcohol Use Standard Drinks/Week Comments No 0 (1 standard drink = 0.6 oz pur e alcohol) rarely Comments No Sex and Gender Information Value Date Recorded Sex Assigned at Not on file Legal Sex Female 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
--- OUTSIDE RECORDS SUMMARY | 2025-06-17 12:09 | XMS_ITS | Clinical Summary ---
Author Organization [facility] Address [address] [facility] [place] [address] Care Team Providers Care Career Law Clerk Name Role Phone Hamlet Rodriguez MD Primary Care Provider Source Comments [facility],non-owned Affiliates and Associated Physician Practices is amultiple site organization consisting of ambulatory clinics and hospital sitesin [place], [place], [place] and [place]. This disclosure is being madepursuant to the Care Everywhere program and may not contain all information available regarding this patient. Last updated 18.[facility] Allergies No known active allergies Medications * Be aware that medications may not be up to date on this document. Alwaysverify current medications with the patient. VYTORIN 10-40 MG TABS Take 1 Tab by mouth at bedtime. Active lisinopril (PRINIVIL; ZESTRIL) 20 MG tablet Take 20 mg by mouth daily. Active Thyroid (Pork) 90 MG CAPS Take 1 Tab by mouth daily. Active Vitamin D 2000 UNIT TABS Take by mouth. Take two tablets daily Active folic acid (FOLVITE) 1 MG tabletIndicatio ns:Psoriatic arthritis (HCC),Medicatio n monitoring encounter Take 5 Tabs by mouth every 7 days. 3 days after methotrexate 40 Tab 3 1 Active clobetasol (TEMOVATE) 0.05 % ointmentIndicat ions:Psoriatic arthritis (HCC) Apply to affected area 2 times daily. 30 g 3 1 Active methotrexate (RHEUMATREX) 2.5 MG tabletIndicatio ns:Psoriatic arthritis (HCC) Take 8 Tabs by mouth every 7 days. 64 Tab 3 1 Active temazepam (RESTORIL) 15 MG capsule Take 1 Cap by mouth nightly as needed for Insomnia. 60 Cap 1 1 Active carisoprodol (SOMA) 350 MG tablet Take 2 Tabs by mouth at bedtime. 120 Tab 3 1 Active inFLIXimab (REMICADE) injectionIndica tions:Psoriatic arthritis (HCC) 800 mg by Intravenous route as directed. 8 Each 0 1 Active Active Problems Problem Noted Date Diagnosed Date Psoriasis 07/23/2010 Hepatitis C antibody test positive 02/12/2010 Overview (02/12/2010): Drawn 01/2010 Neutropenia 12/20/2008 Vitamin D deficiency 12/19/2008 Cervical vertebral fusion 09/09/2008 Overview (09/09/2008): Dr Tracey 1990 Hypothyroidism 09/09/2008 Carpal tunnel syndrome 09/09/2008 Overview (09/09/2008): S/p surgery 1998 History of total knee replacement 09/09/2008 Overview (09/09/2008): Left 1995 OA Elevated cholesterol 09/09/2008 Adenoma 09/09/2008 Overview (09/09/2008): L BREAST ADENOMA Cervical cancer 09/09/2008 Overview (09/09/2008): 1987 OA (osteoarthritis) 09/09/2008 Overview (09/09/2008): OA [facility] Psoriatic arthritis 09/09/2008 Overview (10/17/2011): Dx made by Dr. Lora on 06/2005 based on stiffness; arthralgias; elevated ESR; rash. Placed on low dose prednisone. Plaquenil/MTX added 11/2007. Remicade added 04/2008. 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 Gender Identity Not on file Sexual Orientation Not on file Last Filed Vital Signs Vital Sign Reading Time Taken Comments Blood Pressure 124/77 08/14/2011 9:51 AM FARM ADVISOR Pulse 67 08/14/2011 9:51 AM FARM ADVISOR Temperature 36.1 C (96.9 F) 08/14/2011 9:51 AM FARM ADVISOR Respiratory Rate 18 08/14/2011 9:51 AM FARM ADVISOR Oxygen Saturation - - Inhaled Oxygen Concentration - - Weight 94.3 kg (208 lb) 07/26/2011 11:41 AM FARM ADVISOR Height 167.6 cm (5' 6) 12/19/2008 10:20 AM CDT Body Mass Index 33.57 12/19/2008 10:20 AM CDT Plan of Treatment Health Maintenance Due Date Last Done Comments BONE DENSITY TESTING 1957 COLOGUARD (AGES 45-75) - COLON CA SCREENING 1957 COLON MONITORING 1957 COLONOSCOPY - COLON CA SCREENING 1957 CT COLONOGRAPHY - COLON CA SCREENING 1957 Colorectal Cancer Screening 1957 FIT - COLON CA SCREENING 1957 FLEX SIG - COLON CA SCREENING 1957 MAMMOGRAM 1957 DTAP/TDAP/TD VACCINES (1 - Tdap) 1976 PNEUMOCOCCAL VACCINE 50+ (1 of 1 - PCV) 10/26/2007 ZOSTER VACCINE (1 of 2) 10/26/2007 DEPRESSION SCREENING 08/18/2024 COVID-19 VACCINE (1 - season) 2025 INFLUENZA VACCINE (#1) 2025 7, 06/20/2016, 05/18/2015, Additional history exists Respiratory Syncytial Virus (RSV) Vaccine Pt: or over 60 yrs (1 - 1-dose 75+ series) 2032 HEPATITIS C SCREENING Completed 03/08/2010 , 03/02/2010, 02/12/2010, Additional history exists HEPATITIS B VACCINE Aged Out No longe r eligible based on patient's age to complete this topic HIB VACCINE Aged Out No longer eligi ble based on patient's age to complete this topic HPV VACCINE Aged Out No longer eligi ble based on patient's age to complete this topic MENINGOCOCCAL (Group B) VACCINE SHARED DECISION-MAKING Aged Out No longer eligible based on patient's age to complete this topic MENINGOCOCCAL GROUPS A/C/Y/W VACCINE Aged Out No longer eligible based on patient's age to complete this topic Procedures Procedure Name Priority Date/Time Associated Diagnosis Comments HEPATITIS C REAL-TIME PCR QUANTASURE 03/08/2010 2:24 PM CDT from Last 3 Months or Most Recently Relevant to Health Maintenance Results * HCV REAL TIME PCR QUANT (PO REF LAB) (03/08/2010 2:24 PM CDT) Hepatitis C Virus Quantitation <43 IU/mL [facility] INSURANCE BILL Comment:HCV RNA not detected Hepatitis C Virus Log 10 NOT AVAIL. log10 IU/mL [facility] INSURANCE BILL Comment: Unable to calculate result since non-numeric result obtained for component test. Test Information LAB [facility] INSURANCE BILL Comment: The reportable range for this assay is 43 to 69,000,000 IU HCV RNA/mL. . 03/08/2010 2:24 PM CDT 03/08/2010 9:25 PM CDT Narrative [facility] INSURANCE BILL - 03/12/2010 9:13 AM CDT Additional Result Information HCV LOG10 LOG10 IU/ML BLOOD ([facility]): RESULT NOT AVAILABLE Resulting Agency Comment [facility] [address] [place] [address] [id number] us Frank Lora MD LAB - SEROLOGY ORDERABLES Final Result [facility] INSURANCE BILL [address] [place] [address] from Last 3 Months or Most Recently Relevant to Health Maintenance Insurance [employer] Care Teams Career Law Clerk Relationship Specialty Start Date End Date Hamlet Rodriguez MD [address] [place] [address] PCP - General 03/22/11
--- NOTE | 2025-06-17 12:29 | ED.UPPEXIN ---
HPI - Extremity Injury (Upper) General Chief Complaint: Extremity Injury, Upper Stated Complaint: bleeding from injury to RUE Time Seen by Provider: 06/17/25 12:21 Source: patient Mode of arrival: ambulatory Limitations: no limitations History of Present Illness HPI narrative: This is a 69-year-old female with history of CAD, AFib on Xarelto who presents to the ED for right upper extremity wound. Patient states that she fell 3 days ago and was seen in urgent care that day. She had a skin tear to her right arm that they were unable to repair. They did apply a pressure dressing to the area but the patient has continued to have bleeding to the area prompting her to come to the ED. denies lightheadedness, dizziness. Related Data Home Medications ?Medication ?Instructions ?Recorded ?Confirmed ?Last Taken ?Type apremilast 30 mg tablet (Otezla) 30 mg PO BID 09/16/21 11/15/24 Unknown History aspirin 81 mg tablet 81 mg PO DAILY 09/16/21 11/15/24 Unknown History atorvastatin 80 mg tablet 80 mg PO QHS 09/16/21 11/15/24 Unknown History carisoprodol 350 mg tablet 350 mg PO HS 09/16/21 11/15/24 Unknown History dapagliflozin propan 2.5 2 tablet PO DAILY 09/16/21 11/15/24 Unknown History mg-metformin ER 1,000 mg tablet,ext rel 24hr (Xigduo XR) ergocalciferol (vitamin D2) 5,000 units PO DAILY 09/16/21 11/15/24 Unknown History ezetimibe 10 mg tablet 10 mg PO DAILY 09/16/21 11/15/24 Unknown History fenofibrate 54 mg tablet 108 mg PO DAILY 09/16/21 11/15/24 Unknown History mecobalamin (vitamin B12) 1,000 mcg PO DAILY 09/16/21 11/15/24 Unknown History methotrexate sodium 2.5 mg tablet 10 mg PO BID 09/16/21 11/15/24 Unknown History pregabalin 150 mg capsule 150 mg PO BID 09/16/21 11/15/24 Unknown History rivaroxaban 20 mg tablet (Xarelto) 20 mg PO DAILY 09/16/21 11/15/24 Unknown History semaglutide 1 mg/dose (4 mg/3 mL) 1 mg subcut WEEKLY 09/16/21 11/15/24 Unknown History subcutaneous pen injector (Ozempic) tramadol 50 mg tablet 50 mg PO QID PRN Pain 09/16/21 11/15/24 Unknown History trazodone 150 mg tablet 150 mg PO HS 09/16/21 11/15/24 Unknown History ferrous sulfate 325 mg (65 mg 325 mg PO EVERY OTHER DAY 07/12/22 11/15/24 Unknown History iron) tablet minoxidil 2.5 mg tablet mg 06/15/25 Unknown History risankizumab-rzaa 150 mg/mL mg subcut 06/15/25 Unknown History subcutaneous pen injector (Skyrizi) spironolactone 100 mg tablet mg 06/15/25 Unknown History Allergies Allergy/AdvReac Type Severity Reaction Status Date / Time infliximab Allergy Severe paralysis Verified 06/15/25 16:21 Review of Systems Review of Systems: Gen.: Denies fevers or chills Eyes: Denies eye pain or visual change ENT: Denies congestion Respiratory: Denies shortness of breath or cough CV: Denies chest pain or palpitations GI: Denies abdominal pain nausea, emesis or diarrhea denies burning, urgency, frequency or hematuria Musculoskeletal: Denies back pain or muscle pain Neuro: Denies numbness, tingling, weakness or focal weakness Skin: As per HPI Except as documented, all other systems reviewed and negative [facility] Past Medical History Medical History prison current use of anticoagulant GERD (gastroesophageal reflux disease) CAD (coronary artery disease) Myocardial infarction CVA (cerebral vascular accident) Diabetes Spinal stenosis Psoriatic arthritis Elevated cholesterol Afib Surgical History Surgical History H/O repair of rotator cuff H/O cervical spine surgery History of knee replacement History of carpal tunnel surgery Family History Family History Father Diabetes mellitus CAD (coronary artery disease) Sibling Diabetes mellitus CAD (coronary artery disease) Mother Asthma Social History Social History Social History: Code status: Full code Surrogate decision maker: Smoking status: Never smoker Tobacco type: cigarettes Alcohol intake: never Substance use: never Other substance usage details: takes tramadol for acute pain and does get epidural injections for her back Lack of Transportation: No Lack of Food: Never True Current Housing: I Have Housing Concerned About Future Housing: No Difficulty Paying Gas/Electric Bills: No Difficulty Paying for Meds: No Currently Unemployed: No Education: High School Diploma/GED Difficulty w/ Childcare or Family Care: No Living arrangements: with family Additional living arrangements comments: She lives with her . They were in 2001. She does not having biologic children but has 2 step children. 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 Gender identity (if verbalized by the patient): Female Spiritual care concerns: No Exam Narrative: APPEARANCE: No acute distress, nontoxic, resting in bed EYES: EOMI HEENT: Normocephalic, atraumatic, OMM RESPIRATORY: No respiratory distress Clear to auscultation bilaterally with no rhonchi wheezing or rales. CARDIOVASCULAR: Tachypneic with regular rhythm without murmurs rubs or gallops. ABDOMINAL: Soft, nontender, nondistended, no rebound or guarding MUSCULOSKELETAl: Moves all extremities. No clubbing, cyanosis or edema. NEURO: Awake and alert. Following commands, speech normal, no focal deficits SKIN:: 5 cm skin tear to the right forearm with small amount of oozing noted PSYCHIATRIC: Normal affect/mood, Course Vital Signs Vital signs: Vital Signs Temperature 98.3 F 06/17/25 12:08 Pulse Rate 129 H 06/17/25 12:08 Respiratory Rate 16 06/17/25 12:08 Blood Pressure 151/115 H 06/17/25 12:08 Pulse Oximetry 96 06/17/25 12:08 Oxygen Delivery Room Air 06/17/25 12:08 Temperature 98.3 F 06/17/25 12:08 Pulse Rate 118 H 06/17/25 13:42 Respiratory Rate 17 06/17/25 13:42 Blood Pressure 142/95 H 06/17/25 13:42 Pulse Oximetry 96 06/17/25 13:42 Oxygen Delivery Room Air 06/17/25 12:08 MDM - Extremity Injury (Upper) MDM Narrative Medical decision making narrative: 69-year-old female Presenting for bleeding wound. On initial evaluation patient was in no acute distress afebrile, hemodynamic stable. Differentials include but are not limited to: Laceration, skin tear, anticoagulation, cellulitis Notable exam findings: 5 cm skin tear to the right upper extremity with some oozing. Skin tear was a few days old at this point. Because patient is on Xarelto, they are having a hard time controlling the bleeding. Patient was given let and on re-evaluation, the bleeding was well controlled this time. Pressure dressing was placed. Patient was advised to change this daily. She was advised follow-up with her PCP in the next week for re-evaluation. Patient and family were agreeable to this plan. Given strict return precaution. Medical Records Attestation: I reviewed the patient's medical records. ECG Data EKG #1: Attestation: I personally reviewed and interpreted this ECG as follows: ECG completion date: 06/17/25 ECG completion time: 13:14 Interpretation: Sinus tachycardia rate of 116, normal axis, normal intervals, no acute ST or T-wave changes Discharge Plan Discharge Clinical Impression: Skin tear, Bleeding, Anticoagulated Patient Disposition: Home Condition: Stable Instructions: Antibiotic Form, Rivaroxaban (By mouth) Additional Instructions: Apply dressing to wound daily. Maintain pressure to the wound directly with your hand if it begins to bleed again. Follow-up with your PCP in the next week for re-evaluation. Return to the ED for any new or worsening symptoms. Patient Language: Albanian Prescriptions: No Action mometasone [Nasonex 24hr Allergy] 50 mcg/actuation spray,non-aerosol 2 spray intranasal DAILY Qty: 17 0RF Rx Instructions: administer into each nostril spironolactone 100 mg tablet minoxidil 2.5 mg tablet Skyrizi 150 mg/mL pen injector SUBCUT carisoprodol 350 mg tablet 350 mg PO HS atorvastatin 80 mg tablet 80 mg PO QHS tramadol 50 mg tablet 50 mg PO QID PRN (Reason: Pain) Rx Instructions: pain 4-10 methotrexate sodium 2.5 mg tablet 10 mg PO BID Rx Instructions: takes 1 x week on FRI trazodone 150 mg tablet 150 mg PO HS ezetimibe 10 mg tablet 10 mg PO DAILY pregabalin 150 mg capsule 150 mg PO BID fenofibrate 54 mg tablet 108 mg PO DAILY Xarelto 20 mg tablet 20 mg PO DAILY Otezla 30 mg tablet 30 mg PO BID Xigduo XR 2.5-1,000 mg tablet, IR - ER, biphasic 24hr 2 tablet PO DAILY Ozempic 1 mg/dose (4 mg/3 mL) pen injector 1 mg SUBCUT WEEKLY Patient Comments: weekly on Rx Instructions: takes weekly on Wednesdays aspirin 81 mg Tablet 81 mg PO DAILY ergocalciferol (vitamin D2) 5,000 units PO DAILY mecobalamin (vitamin B12) 1,000 mcg PO DAILY ferrous sulfate 325 mg (65 mg iron) Tablet 325 mg PO EVERY OTHER DAY Rx Instructions: last dose Fri/ vomiting Follow-up/Referrals: PHYSICIAN NOT ON STAFF,NONSTAFF [Primary Care Provider]
--- NOTE | 2025-06-17 12:30 | ECG_ITS ---
Test Date: 2025-06-17 13:14:22 Measurements Intervals [place] Rate: 116 P: 72 HI: 143 QRS: 25 QRSD: 84 T: 76 QT: 301 QTc: 419 Interpretive Statements SINUS TACHYCARDIA NONSPECIFIC T-WAVE ABNORMALITY- HIGH LATERAL LEADS BASELINE ARTIFACT- I, II, III, AVR, AVL, AVF, V2 ABNORMAL ECG No previous ECG available for comparison Electronically Signed On 06-17-2025 13:27:34 CDT by Alex العلي D.O.
[2025-06-17] MEDS: LIDOCAINE, EPINEPHRINE, TETRACAINE VISCOUS SOLN 3 ML TOPICAL (12:44)
[2025-06-17 12:45] VITALS: BP 146/122; PULSE 117; RESP 14; O2SAT 97
[2025-06-17] MEDS: oxyCODONE HCL (*CRX) 5 MG TAB IR PO (12:45)
[2025-06-17 13:00] VITALS: BP 156/88; PULSE 115; RESP 22; O2SAT 97
--- OUTSIDE RECORDS SUMMARY | 2025-06-17 13:38 | XMS_ITS | Encounter Summary ---
Author Organization [facility] Healthcare Address [address] [place] [address] Care Team Providers Care Telephone Diaphragm Assembler Name Role Phone Ana Haddad MD Primary Care Provi marcus Roz Martines MD Unavailable [phone] Mellisa Arriola MD Unavailable Mario Gao MD Unavailable Bonita Mosley MD PhD Unavailable Linda Milner MD Unavailable Fariba Fernandez MD Unavailable Marcel Eli MD Unavailable Encounter Details Date Type Department Care Team (Late st Contact Info) Description 07/24/2021 Telephone [facility] ([facility]) [facility] [place] [address] Ирина Bernardo, RT Social History Tobacco Use Types Packs/Day Years Used Date Smoking Tobacco: Former Cigarettes 0.5 30 1 2 - 2011 Smokeless Tobacco: Never Alcohol Use Standard Drinks/Week Comments No 0 (1 standard drink = 0.6 oz pur e alcohol) AUDIT-C Answer Date Recorded Q1: How often do you have a drink containing alc ohol? 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 Gender Identity Not on file Sexual Orientation Not on file documented as of this encounter Plan of Treatment Scheduled Procedures Name Priority Associated Diagnoses Date/Ti me ESOPHAGOGASTRODUODENOSCOPY Anemia, unspecified type COLONOSCOPY Anemia, unspecified type documented as of this encounter Visit Diagnoses Not on filedocumented in this encounter Additional Health Concerns Infection Onset Date Last Indicated Resolved Time COVID: Suspected 11/28/2024 11/28/2024 11/28/2024 9:22 PM CDT documented as of this encounter Care Teams Telephone Diaphragm Assembler Relationship Specialty Start Date End Date Ana Haddad MD PCP - General 01/08/17 Roz Martines MD Surgeon Orthopedic Surgery 01/12/19 Mellisa Arriola MD Consulting Physician Internal Medicine 01/12/19 Mario Gao MD Consulting Physician Cardiology 01/12/19 Bonita Mosley MD PhD Dermatology 01/12/19 Linda Milner MD [address] [facility] [phone] [place] [address] Referring Physician Obstetrics and Gynecology 01/12/19 Fariba Fernandez MD [address] [facility] [phone] [place] [address] Referring Physician Endocrinology Diabetes & Metabolism 01/12/19 Marcel Eli MD [address] [address] Surgeon Orthopedic Surgery 09/06/23 documented as of this encounter
--- OUTSIDE RECORDS SUMMARY | 2025-06-17 13:38 | XMS_ITS | Encounter Summary ---
Author Organization [facility] Healthcare Address [address] [place] [address] Care Team Providers Care Boiler Repairman Name Role Phone Ana Haddad MD Primary Care Provi marcus Roz Martines MD Unavailable [phone] Mellisa Arriola MD Unavailable [phone] Mario Gao MD Unavailable Bonita Mosley MD PhD Unavailable Linda Milner MD Unavailable [phone] Fariba Fernandez MD Unavailable Marcel Eli MD Unavailable Encounter Details Date Type Department Care Team (Late st Contact Info) Description 08/22/2021 Telephone [facility] ([facility]) [facility] [place] [address] Heath Bishop, RT Social History Tobacco Use Types Packs/Day [...] on file 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 Gender Identity Not on file Sexual Orientation [...] documented as of this encounter Care Teams Boiler Repairman Relationship Specialty Start Date End Date Ana Haddad MD PCP - General 01/08/17 Roz Martines MD Surgeon Orthopedic Surgery 01/12/19 Mellisa Arriola MD Consulting Physician Internal Medicine 01/12/19 Mario Gao MD Consulting Physician Cardiology 01/12/19 Bonita Mosley MD PhD Dermatology 01/12/19 Linda Milner MD [address] [facility] [phone] [place] [address] Referring Physician Obstetrics and Gynecology 01/12/19 Fariba Fernandez MD [address] [facility] [phone] [place] [address] Referring Physician Endocrinology Diabetes & Metabolism 01/12/19 Marcel Eli MD [address] [address] Surgeon Orthopedic Surgery 09/06/23 documented as of this encounter
--- OUTSIDE RECORDS SUMMARY | 2025-06-17 13:38 | XMS_ITS | Encounter Summary ---
Author Organization [facility] Healthcare Address [address] [place] [address] Care Team Providers Care Truss Driver Helper Name Role Phone Ana Haddad MD Primary Care Provi marcus Roz Martines MD Unavailable [phone] Mellisa Arriola MD Unavailable Mario Gao MD Unavailable Bonita Mosley MD PhD Unavailable Linda Milner MD Unavailable [phone] Fariba Fernandez MD Unavailable Marcel Eli MD Unavailable Encounter Details Date Type Department Care Team (Late st Contact Info) Description 07/02/2021 Telephone [facility] ([facility]) [facility] [place] [address] Jennifer Farmer, RT Social History Tobacco Use Types Packs/Day [...] on file 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 Gender Identity Not on file Sexual [...] documented as of this encounter Care Teams Truss Driver Helper Relationship Specialty Start Date End Date Ana Haddad MD PCP - General 01/08/17 Roz Martines MD Surgeon Orthopedic Surgery 01/12/19 Mellisa Arriola MD Consulting Physician Internal Medicine 01/12/19 Mario Gao MD Consulting Physician Cardiology 01/12/19 Bonita Mosley MD PhD Dermatology 01/12/19 Linda Milner MD [address] [facility] [phone] [place] [address] Referring Physician Obstetrics and Gynecology 01/12/19 Fariba Fernandez MD [address] [facility] [phone] [place] [address] Referring Physician Endocrinology Diabetes & Metabolism 01/12/19 Marcel Eli MD [address] [address] Surgeon Orthopedic Surgery 09/06/23 documented as of this encounter
--- OUTSIDE RECORDS SUMMARY | 2025-06-17 13:39 | XMS_ITS | Clinical Summary ---
Author Organization [facility] Address [address] [place] [address] Care Team Providers Care Cell Geneticist Name Role Phone Ana Haddad MD Primary Care Provi marcus Roz Martines MD Unavailable [phone] Mellisa Arriola MD Unavailable Mario Gao MD Unavailable Bonita Mosley MD PhD Unavailable Linda Milner MD Unavailable Fariba Fernandez MD Unavailable Marcel Eli MD Unavailable Allergies Active Allergy Reactions Criticality Noted Date Comments Infliximab Anaphylaxis High PARALYSIS NECK DOWN Medications aspirin (ASPIR-81) 81 mg tablet take 1 tablet (81MG) by oral route every day 0 013 Active ONETOUCH DELICA LANCETS [facility] 015 Active blood-glucose meter [facility] [place] 015 Active cyanocobalami n (Vitamin B-12) 500 mcg tablet Take 1 tablet (500 mcg total) by mouth nightly Active insulin syringe-needl e U-100 1 mL 31 gauge x 5/16 syringe TO BE USED TO DOSE METHOTREXATE 100 each 2 019 Active ONETOUCH VERIO strip Use to check BG once daily 100 each 1 019 Active ALPRAZolam (XANAX) 0.25 mg tablet Take 1-2 30-60 minutes prior to procedure as needed. 5 tablet 021 Active clobetasoL (TEMOVATE) 0.05 % ointmentIndic ations:Psoria sis Apply topically 2 (two) times a day as needed (psoriasis) feet 180 g 6 021 Active amoxicillin 500 mg capsule Take 4 tablet/capsule (2,000 mg total) by mouth once as needed (dental cleaning) 021 Active triamcinolone (KENALOG) 0.1 % cream Apply topically 2 (two) times a day Apply to the effected area 30 g 024 Active acetaminophen (TYLENOL) 500 mg tabletIndicat ions:Chronic pain of left knee Take 2 tablets (1,000 mg total) by mouth every 8 (eight) hours 90 tablet 024 Active bisacodyl EC (DULCOLAX EC) 5 mg EC tabletIndicat ions:constipa tion Take 1 tablet (5 mg total) by mouth daily as needed for constipation Active budesonide-fo rmoteroL (SYMBICORT) 80-4.5 mcg/actuation inhaler Inhale 2 puffs 2 (two) times a day Rinse mouth with water after use. Do not swallow. 1 each 2 024 Active traZODone (DESYREL) 100 mg tabletIndicat ions:Primary insomnia Take 2 tablets (200 mg total) by mouth nightly 180 tablet 1 024 Active minoxidiL (LONITEN) 2.5 mg tablet Take 0.5 tablets (1.25 mg total) by mouth nightly 024 Active spironolacton e (ALDACTONE) 100 mg tablet Take 1 tablet (100 mg total) by mouth every morning 024 Active calcium carbonate (TUMS) 500 mg (200 mg elemental calcium) chewable tablet Take 1 tablet/chew tab (500 mg total) by mouth daily as needed for heartburn Active risankizumab- rzaa (Skyrizi) 150 mg/mL pen injectorIndic ations:Psoria tic arthritis (HCC),Psorias is Inject 1mL subcutaneously every 10 weeks 1 mL 3 025 Active ergocalcifero l (VITAMIN D) 50,000 unit capsuleIndica tions:Vitamin D deficiency Take 1 capsule (50,000 Units total) by mouth daily Take 1 capsule by mouth every 14 days 14 capsule 025 Active ezetimibe (ZETIA) 10 mg tablet Take 1 tablet (10 mg total) by mouth daily Active pregabalin (LYRICA) 150 mg capsule Take 1 capsule (150 mg total) by mouth 2 (two) times a day 180 capsule 1 025 Active rivaroxaban (XARELTO) 20 mg tablet Take 1 tablet (20 mg total) by mouth daily with dinner 90 tablet 3 025 2025 Active enoxaparin (LOVENOX) 60 mg/0.6 mL syringe Inject 0.6 mL (60 mg total) under the skin every 12 (twelve) hours For 4 doses before procedure 2.4 mL 1 025 Active evolocumab (Repatha SureClick) 140 mg/mL pen injector Inject 1 mL (140 mg total) under the skin every 2 (two) weeks 6 mL 1 025 Active apremilast (Otezla) 30 mg tabletIndicat ions: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 Take 1 tablet (30 mg total) by mouth 2 (two) times a day 180 tablet 3 025 Active folic acid (FOLVITE) 1 mg tabletIndicat ions:Psoriati c arthritis (HCC) Take 2 tablets (2,000 mcg total) by mouth daily 90 tablet 3 025 Active methotrexate 2.5 mg tabletIndicat ions:autoimmu ne disease Take 4 tablets (10 mg total) by mouth every 7 days 48 tablet 1 025 Active apremilast 10 mg (4)-20 mg (4)-30 mg (47) tablets,dose packIndicatio ns:Psoriasis, unspecified,P soriatic arthritis (HCC) Take as directed on package 47 tablet 025 Active semaglutide (Ozempic) 1 mg/dose (4 mg/3 mL) pen injector injection INJECT 1 MG UNDER THE SKIN ONCE A WEEK 9 mL 1 025 Active carisoprodoL (SOMA) 350 mg tablet Take 1 tablet (350 mg total) by mouth nightly 30 tablet 2 025 Active fenofibrate (TRICOR) 54 mg tablet Take 2 tablets (108 mg total) by mouth daily 180 tablet 1 025 Active atorvastatin (LIPITOR) 80 mg tablet TAKE 1 TABLET(80 MG) BY MOUTH DAILY 90 tablet 1 Active fluticasone propion-salme teroL (ADVAIR DISKUS) 100-50 mcg/dose diskus inhaler 022 Active traMADoL (ULTRAM) 50 mg tabletIndicat ions:Chronic pain of left knee Take 1 tablet (50 mg total) by mouth every 6 (six) hours as needed for pain for pain 30 tablet Active dapaglifloz propaned-metf ormin (Xigduo XR) 2.5-1,000 mg tablet, IR & ER, biphasic 24hr Take 2 tablets by mouth daily 180 tablet 1 Active methylPREDNIS olone (MEDROL DOSEPACK) 4 mg Dosepack FOLLOW PACKAGE DIRECTIONS Active mometasone (NASONEX) 50 mcg/actuation nasal spray 2 sprays daily Active atorvastatin (LIPITOR) 80 mg tablet Take 1 tablet (80 mg total) by mouth daily 90 tablet 3 024 2024 Discontinued dapaglifloz propaned-metf ormin (Xigduo XR) 2.5-1,000 mg tablet, IR & ER, biphasic 24hr Take 2 tablets by mouth daily 180 tablet 1 025 2024 Discontinued(R eorder) traMADoL (ULTRAM) 50 mg tabletIndicat ions:Chronic pain of left knee Take 1 tablet (50 mg total) by mouth every 6 (six) hours as needed for pain for pain 30 tablet 025 2024 Discontinued(R eorder) Active Problems Problem Noted Date Diagnosed Date CAD (coronary artery disease) 06/07/2025 Diabetes 06/07/2025 GERD (gastroesophageal reflux disease) Laceration of forehead 06/07/2025 Sepsis 11/28/2024 Assessment & Plan (12/01/2024 7:36 AM CDT): -meets sepsis criteria based on HR >90, WBC count >12K in setting of presumed infection of RIGHT knee joint -initial lactate 1.2 -she was given 1L IVF, as well as IV vanc and IV cefepime -Blood cx and synovial fluid cx sent from ED -monitor for fevers, HD instability, S/Sx septic shock -monitor urine output closely -low threshold for transfer to stepdown/ICU for closer monitoring if she decompensates Assessment & Plan (11/28/2024 10:55 PM CDT): -meets sepsis criteria based on HR >90, WBC count >12K in setting of presumed infection of RIGHT knee joint -initial lactate 1.2 -she was given 1L IVF, as well as IV vanc and IV cefepime -Blood cx and synovial fluid cx sent from ED -monitor for fevers, HD instability, S/Sx septic shock -monitor urine output closely -ID consult in AM -low threshold for transfer to stepdown/ICU for closer monitoring if she decompensates Pain and swelling of right knee 11/28/2024 Arteriovenous fistula of left femoral vessels Pedal edema 06/28/2024 Assessment & Plan (06/28/2024 11:26 AM MANAGER CARDIOLOGY): Reassured that dependent edema at the end of the day is liekly benign Consider compression socks, watch salt Androgenetic alopecia 06/28/2024 Assessment & Plan (06/28/2024 11:32 AM MANAGER CARDIOLOGY): Will check labs to r/o other causes Will see Dr Mejias- could trial topical Rogaine in the meantime Carpal tunnel syndrome on right 04/28/2024 Assessment & Plan (06/28/2024 11:30 AM MANAGER CARDIOLOGY): Planning on carpal tunnel release in the new year with ortho Wrist pain, acute, right 04/28/2024 Bilateral shoulder pain 02/23/2024 Neck pain 02/23/2024 Assessment & Plan (02/23/2024 10:15 AM CDT): She plans to follow up with Dr Lucero to discuss her symptoms- offered [facility] referral to discuss RFA but she would like to discuss with him too I think her headaches or more likely cervicogenic rather than rebound/analgesic overuse; she is trying to minimize analgesics in general EMG/NCS c/w carpal tunnel so I don't think her paresthesias are coming from her neck Continue Soma and encouraged Tylenol 1000mg at night, heat PRN Failed total left knee replacement, initial enco unter 09/05/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/2023 Myalgia 03/17/2023 Sleep disturbance 03/17/2023 Assessment & Plan (03/17/2023 2:00 PM CDT): Multifactorial Encouraged good sleep hygiene Trial 1000mg Tylenol prior to bed Nocturnal muscle cramps 12/09/2022 Assessment & Plan (12/09/2022 9:01 PM CDT): Discussed conservative measures for nocturnal muscle cramps : Keeping sheets untucked Stretching before bed Daily exercise and hydration B complex TID + Vit E before bed Former smoker 04/29/2022 Injury of toe on left foot 11/16/2021 Assessment & Plan (11/16/2021 12:12 PM CDT): Not concerning for fracture - defers imaging UTD on Tdap Will cover with a round of oral and topical abx particularly with her h/o DM Can steve tape the toe, if pain worsens Appropriate warnings reviewed Also advised pt that eventually her nail may fall off. Advised not to pick at it. She can RTC or ask for podiatry referral at that time. Frequent falls 10/29/2021 Assessment & Plan (04/29/2022 10:48 AM CDT): Suspect a combination of her neuropathy, spinal stenosis and orthopedic Somewhat improved s/p PT, encouraged her to continue HEP She will f/u with Dr Eli, get MRI with Dr Lucreo Assessment & Plan (10/29/2021 11:52 AM CDT): Suspect a combination of her neuropathy, spinal stenosis, lack of balance training. Discussed potential contribution of meds but she denies feeling lightheaded/tired/etc Agree with PT but she would like to put this off for now Encouraged balance training at home - given HEP Brain fog 07/23/2021 Assessment & Plan (07/23/2021 11:31 AM MANAGER CARDIOLOGY): May be medication related- tramadol, Lyrica, trazodone- but she declines dose change . Mood is OK but she does get down about her chronic issues and that could be contributing. TSH and B12 normal Formal testing if progressive Colon polyps 06/18/2021 Overview (06/18/2021): Noted on cscope in 06/2021 Plan to repeat scope in 5 yrs or based on biopsy results Sigmoid diverticulosis 06/18/2021 Wrist swelling, right 05/02/2020 Right ankle pain 07/23/2019 Assessment & Plan (02/25/2020 9:52 AM CDT): Status post right subtalar injection today using indirect ultrasound guidance Assessment & Plan (07/23/2019 9:30 AM MANAGER CARDIOLOGY): Status post right subtalar injection today Anemia 07/23/2019 Assessment & Plan (05/20/2022 9:58 AM CDT): H/o of iron def in the past. Cscope in 2020 showed colon polyps and EGD unremarkable. Will check FIT kits and labs per below before deciding to re-do scopes. Denies any red flag sxs. Instructed to increase vit b12 supplementation. Will check UPEP and SPEP in addition Warnings reviewed Avoid NSAIDs and ASA (encouraged to discuss with cards as well) Assessment & Plan (06/01/2021 1:24 PM CDT): Microcytic and based on the picture, it may be NAOMY Will repeat labs per below and determine need for supplementation Since she does have h/o colon polyps and new onset anemia, will place orders for scopes She will discuss stopping ASA/blood thinners with cards Avoid NSAIDs Assessment & Plan (07/23/2019 11:53 AM MANAGER CARDIOLOGY): Normocytic- will plan to add iron studies, B12, folate to next labs Vertebral artery occlusion, left 06/04/2019 Assessment & Plan (06/18/2023 11:09 AM CDT): Continue max-dose atorvastatin + ASA 81mg daily Assessment & Plan (04/29/2022 10:47 AM CDT): Continue max-dose atorvastatin + ASA 81mg daily Assessment & Plan (07/23/2019 11:53 AM MANAGER CARDIOLOGY): I do not think this was responsible for her syncopal episode but she will follow up with Dr Lucero for this in 6 weeks Assessment & Plan (06/08/2019 9:22 PM CDT): Noted on most recent c-spine MRI Per MRI read, this was present on previous MRI. She had cerebral angiography in the past that showed no significant vertebral artery stenosis but I am not sure the timing of this study VS when the vertebral artery first appeared stenosed on imaging. Will discuss with Dr Lucero Spinal stenosis 04/16/2019 Assessment & Plan (12/25/2020 1:15 PM CDT): Consider [facility] referral for RFA - she will discuss with Dr Martines Continue current pain regimen- no red flags for misuse Assessment & Plan (04/16/2019 11:11 AM CDT): Now with fecal incontinence concerning for worsening disease although her pseudoclaudication symptoms are improved She will see Dr Lucero as well MRI pending Leg pain, inferior, right 02/04/2019 Assessment & Plan (02/04/2019 12:40 PM CDT): Her prominent symptoms at rest argue against PAD although her ABIs were nondiagnostic She does have some tightness and engorged varicosities in the calf so it may be a venous issue -> referred for venous reflux studies She also has some TTP about the ankle and known inflammatory arthritis so could consider imaging of the ankle as a next step Radicular pain is possible, but less likely given her focal tenderness. She will also bring up with Dr Martines + Zeinab to get their opinions Varicose veins of both lower extremities 019 Encounter for preventative adult health care exa mination 01/12/2019 Assessment & Plan (04/29/2022 11:12 AM CDT): Health maintenance issues addressed during this visit included the following: Cervical cancer screen: normal 2019 - 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 Breast cancer screen: BiRads 16 November 2021 Colorectal cancer screen: polyps 2020 -> repeat 2025 Osteoporosis screen: normal 2018 -> repeat now Lung Cancer screen: does not meet critera (<20 pack years) Hepatitis C: neg 2019 Vaccines: Influenza recommended annually Td/Tdap UTD 2021 Shingrix 2/2 complete Pneumovax UTD 2012, [id number] recommended COVID 2/2 +2 boosters complete; will get omicron booster Assessment & Plan (04/11/2021 10:46 AM CDT): Health maintenance issues addressed during this visit included the following: Cervical cancer screen: normal 2018 - 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 [employer] Breast cancer screen: BiRads 18 Jul 2020 -> will schedule in near future Colorectal cancer screen: normal 2015 -> repeat 2025 Osteoporosis screen: normal 2019 -> repeat 3-5 yrs Lung Cancer screen: does not meet critera (<30 pack years) Hepatitis C: neg 2019 Vaccines: Influenza recommended annually Td/Tdap UTD 2015 Shingrix 2/2 Prevnar at 67 Pneumovax UTD 2012 and will need update 1 yr after Prevnar COVID 2/2 + booster Pfizer Assessment & Plan (02/25/2020 11:19 AM CDT): Health maintenance issues addressed during this visit included the following: Cervical cancer screen: normal 2019 Breast cancer screen: BiRads 16 January 2019 -> will schedule in near future Colorectal cancer screen: normal 2016 -> repeat 2025 Osteoporosis screen: normal 2019 -> repeat 3-5 yrs Lung Cancer screen: does not meet critera (<30 pack years) Hepatitis C: neg 2019 Vaccines: Influenza UTD 2019 Td/Tdap UTD 2016 Shingrix recommended Prevnar at 67 Pneumovax UTD 2012 and will need update 1 yr after Prevnar Assessment & Plan (01/12/2019 11:15 AM CDT): Health maintenance issues addressed during this visit included the following: Cervical cancer screen: normal 2013 Breast cancer screen: scheduled next month Colorectal cancer screen: normal 2015 -> repeat 2025 Osteoporosis screen: update today Lung Cancer screen: does not meet critera (<30 pack years) Hepatitis C: neg 2019 Vaccines: Influenza UTD 2018 Td/Tdap UTD 2015 Shingrix recommended Prevnar at 67 Pneumovax UTD 2011 and will need update 1 yr after Prevnar Paroxysmal atrial fibrillation 10/12/2018 Overview (10/12/2018): Added automatically from request for surgery [id number] Assessment & Plan (06/28/2024 11:29 AM MANAGER CARDIOLOGY): No episodes Doing well with Xarelto Assessment & Plan (06/18/2023 11:06 AM CDT): No episodes Doing well with Xarelto Assessment & Plan (04/29/2022 10:47 AM CDT): No episodes Doing well with Xarelto Assessment & Plan (04/11/2021 11:17 AM CDT): NSR in office today Managed by Dr Murray Nolascorelubaldo Assessment & Plan (02/25/2020 11:21 AM CDT): She has been in NSR since her ablation Follows with Dr Murray Nolascorelubaldo Assessment & Plan (01/12/2019 11:06 AM CDT): She has been in NSR since her ablation Follows with Dr Gao- had new loop recorder placed recently Continue Isatu Impingement syndrome of right shoulder 8 Anticoagulation management encounter 02/11/2017 Assessment & Plan (11/11/2017 10:42 AM CDT): She remains anticoagulated on Xarelto 20 mg daily. She denies any issues with bleeding or bruising. Assessment & Plan (07/14/2017 9:27 AM MANAGER CARDIOLOGY): She remains anticoagulated on Xarelto 20mg daily. She denies any issue with bleeding or bruising. Assessment & Plan (04/20/2017 10:46 AM CDT): She remains anticoagulated on Xarelto 20 mg daily. She denies any issues of bleeding or bruising. Assessment & Plan (02/17/2017 10:14 AM CDT): The patient has a chads Vasc score of 3 (annualized stroke risk of 3.2%). I therefore recommend that she remain anticoagulated for thromboprophylaxis. Status post placement of implantable loop record er 01/21/2017 Overview (10/23/2018): Med[employer] Reveal [id number] ILR implanted on 10-22-18 for AF management. [facility] Assessment & Plan (11/11/2017 10:41 AM CDT): Her atrial arrhythmia burden will continue be monitored via her implantable loop recorder. Assessment & Plan (07/14/2017 9:27 AM MANAGER CARDIOLOGY): Her atrial arrhythmia burden will continue to be followed via her implantable loop recorder. Assessment & Plan (04/20/2017 10:46 AM CDT): Her atrial arrhythmia burden will continue to be followed via her implantable loop recorder. Assessment & Plan (02/17/2017 10:14 AM CDT): Interrogation of her implantable loop recorder today does not demonstrate any episodes of atrial fibrillation post ablation. 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 -blood and synovial fluid cultures obtained in ED -Synovial fluid with RBC [id number] and neutrophils [id number], aerobic and anaerobic culture, Gram stain showed no organisms seen culture in progress. Synovial fluid fungal culture and AFB pending. -Blood cultures x2 HGTDs, MRSA PCR negative -she was started on vanc and cefepime in ED; continued until 11/29 -ortho consulted, not concerned for septic arthritis, recommended Decadron 4 mg while inpatient, switched to Medrol Dosepak when pain controlled or ready for discharge. Recommends to place right knee in knee immobilizer to prevent further inflammatory response, can remain WBAT to RLE while knee immobilizer is on. -PRN analgesics and antipyretics Assessment & Plan (11/28/2024 10:58 PM CDT): -while cell count only shows ~16,000 WBCs, the majority are PMNs and the patient is chronically immunosuppressed; thus, I think we should assume the effusion is septic in nature and treat as such -blood and synovial fluid cultures obtained in ED -she was started on vanc and cefepime in ED; will continue -ID consult in AM -ortho consult in AM -PRN analgesics and antipyretics Assessment & Plan (04/29/2022 10:42 AM CDT): Following with Dr Arriola for this Improved wrist pain s/p steroid injections Having increasing myalgias- we will check CK and she will see Dr Arriola in the near future to discuss Refilled her meds for pain control-no red flags Assessment & Plan (10/29/2021 11:57 AM CDT): Following with Dr Arriola for this Improved wrist pain s/p steroid injections Stable overall on current regimen Refilled her meds for pain control-no red flags Restless legs 04/08/2016 Diabetic neuropathy 10/19/2015 Assessment & Plan (06/28/2024 11:30 AM MANAGER CARDIOLOGY): Stable on Lyrica Assessment & Plan (06/18/2023 11:10 AM CDT): Stable on Lyrica Insomnia 10/19/2015 Assessment & Plan (04/11/2021 11:15 AM CDT): Well controlled on current regimen Reviewed sleep hygiene measures Assessment & Plan (02/25/2020 11:13 AM CDT): RLS may be contributing Check ferritin Consider ropinorole pending result Reviewed sleep hygiene and handout provided Consider trazodone and add tylenol for her pain that may also be waking her up at night Assessment & Plan (06/08/2018 10:10 AM CDT): Despite trazodone 150mg Qhs Reviewed sleep hygiene and handout provided Increasing Lyrica and we will see if that helps her sleep- otherwise consider something like doxepin Type 2 diabetes mellitus wit h neurologic complication, without long-term current use of insulin 08/29/2015 Assessment & Plan (12/01/2024 7:36 AM CDT): -QID accuchecks with SSI -diabetic diet -hold oral hypoglycemics while inpatient Assessment & Plan (11/28/2024 10:56 PM CDT): -QID accuchecks with SSI -diabetic diet -check A1c -hold oral hypoglycemics while inpatient Assessment & Plan (06/28/2024 11:29 AM MANAGER CARDIOLOGY): A1c 5.9% today- very well controlled on Ozempic + Xigduo Counseled on protein intake and exercise to prevent sarcopenia. Eating healthy overall. Needs to reschedule eye exam Check microalbumin Assessment & Plan (02/23/2024 10:04 AM CDT): A1c 5.7% today- very well controlled She would like to lose more weight and asked about going up on Ozempic but I don't want her to lose too much muscle mass so I would prefer for her to work on further weight loss with healthy diet and exercise while prioritizing protein intake Assessment & Plan (06/18/2023 11:02 AM CDT): A1c looks great at 6.0% Continue Ozempic and Zigduo at current doses Discussed increasing the dose given her weight gain but will hold off for now and she will work on diet Needs DM eye exam Check microalbumin Foot exam completed today Assessment & Plan (03/17/2023 2:01 PM CDT): A1c looks great at 6.0% Continue Ozempic and Zigduo at current doses Check labs Assessment & Plan (12/09/2022 1:08 PM CDT): A1c today 6.1%, she has been doing well. Continue healthy diet efforts Continue current medication regimen Consider increasing Ozempic to 2mg when it is more readily available Eye exam due - encouraged to schedule Check lipids, CMP On ASA and statin Assessment & Plan (04/29/2022 10:55 AM CDT): A1c today 6.2%, she has been doing well. Continue healthy diet efforts Continue current medication regimen Consider increasing Ozempic to 2mg when it is more readily available Eye exam due - encouraged to schedule Check microalbumin On ASA and statin Assessment & Plan (10/29/2021 12:09 PM CDT): A1c 6.4% today - well controlled although uptrending slightly Will continue current regimen Encouraged healthy diet and exercise efforts Assessment & Plan (07/23/2021 11:26 AM MANAGER CARDIOLOGY): A1c well-controlled at 5.9% today Well controlled on Xigduo + Ozempic Continues on statins UTD on eye exams, Pneumovax Foot exam UTD Continue working on diet and exercise Assessment & Plan (04/11/2021 11:15 AM CDT): A1c is 6.1% today Well controlled on Xigduo + Ozempic Continues on statins UTD on eye exams, Pneumovax Foot exam UTD Continue working on diet and exercise Assessment & Plan (12/25/2020 1:03 PM CDT): Doing well on Xigduo 2.5mg/1000mg BID A1c improved to 6.1% Continue healthy diet and exercise efforts Assessment & Plan (10/12/2020 11:14 AM MANAGER CARDIOLOGY): She would like to go back on Farxiga to achieve an A1c <6.5%. Doing well on metformin + Ozempic otherwise. Will DC metformin and go back to to Zigduo. Will start at a lower dose and encouraged hydration to avoid volume depletion Continue healthy diet and regular exercise efforts Assessment & Plan (06/09/2020 9:51 AM CDT): A1c is 6.1% today on metformin and Ozempic. Continue at current dose. Counseled low on low GI diet and role of regular exercise to maintain goals On statin Needs to update eye exam Microalb recently checked Will do foot exam at next visit since it was done last month Assessment & Plan (02/25/2020 11:22 AM CDT): A1c 6.0% today on metformin and Ozempic. Counseled low on low GI diet and role of regular exercise to maintain On statin Needs to update eye exam Assessment & Plan (07/23/2019 11:53 AM MANAGER CARDIOLOGY): A1c 5.5% - now just on Ozempic and metformin and doing really well. Continue healthy diet. F/u 3 months. Assessment & Plan (04/16/2019 11:03 AM CDT): Now very well-controlled on Ozempic and Xigduo with A1c 6.1% today Encouraged healthy diet and regular exercise as well. Due for eye exam- strongly encouraged her to update On ASA and statin S/p pneumovaxx Assessment & Plan (01/12/2019 8:20 PM CDT): Now very well-controlled on current regimen with A1c 6.4% today. Will continue at current doses. Encouraged healthy diet and regular exercise as well. 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 Will not increase further due to her memory concerns and fatigue. Encouraged her to continue using tramadol sparingly. I gave her information about PRISM program as well High risk medications (not anticoagulants) long- term use 02/08/2013 Osteoarthritis 10/13/2011 Essential hypertension 10/13/2011 Assessment & Plan (12/01/2024 7:36 AM CDT): -resume home meds in AM -low sodium diet Assessment & Plan (11/28/2024 10:57 PM CDT): -resume home meds in AM -low sodium diet Assessment & Plan (06/28/2024 11:27 AM MANAGER CARDIOLOGY): BP continues to look great off meds, ever since she lost weight Assessment & Plan (02/23/2024 10:12 AM CDT): BP continues to be low even though we stopped all meds Encouraged hydration with electrolytes particularly on hot/sweaty days Assessment & Plan (06/18/2023 11:14 AM CDT): Stopped lisinopril given low Bps in past Encouraged to monitor intermittently at home and report back with values Advised lifestyle measures for improving BP inc regular exercise, healthy diet, salt restriction and weight loss Assessment & Plan (03/17/2023 1:55 PM CDT): Given consistently low Bps s/p weight loss she can stop the lisinopril (no sign of proteinuria in the past) and will monitor Assessment & Plan (12/09/2022 1:06 PM CDT): On lisinopril. Given low diastolic today encouraged to check BPs at home. No pre-syncope/orthostasis. Assessment & Plan (04/29/2022 10:50 AM CDT): Continue lisinopril - Bps in acceptable range and having very rare lightheadedness Assessment & Plan (07/23/2021 11:29 AM MANAGER CARDIOLOGY): BP extremely well-controlled on current regimen No orthostasis Assessment & Plan (04/11/2021 11:19 AM CDT): Well controlled on current regimen Reviewed BP goal of 130/80 Advised lifestyle measures for improving BP inc regular exercise, healthy diet, salt restriction and weight loss Bring BP cuff at next visit Will check labs per below Follow up in 3 months Assessment & Plan (12/25/2020 1:04 PM CDT): BP looks great on current regimen and she denies orthostasis Continue meds at current doses Assessment & Plan (10/12/2020 11:13 AM MANAGER CARDIOLOGY): BP very well controlled on current regimen. Encouraged her to monitor closely when starting Farxiga to make sure it doesn't drop too low Assessment & Plan (06/09/2020 9:49 AM CDT): BP on recheck was 120/70. Continue current regimen Counseled on role of regular exercise and mediterranean diet Assessment & Plan (02/25/2020 11:02 AM CDT): BP looks great today on lisinopril 5 Assessment & Plan (07/23/2019 11:54 AM MANAGER CARDIOLOGY): BP much better since we DCed Farxiga and reduced dose of lisinopril (too low previously). Continue current regimen Assessment & Plan (06/08/2019 9:17 PM CDT): Her BP is actually very low today which might have contributed to syncopal episode Will reduce lisinopril to 1/2 tab and she will work on fluid intake Assessment & Plan (04/16/2019 11:04 AM CDT): Very well-controlled on current regimen. Assessment & Plan (01/12/2019 8:21 PM CDT): Very well-controlled on current regimen. Encouraged to monitor intermittently and work on lifestyle measures as well. Hyperlipidemia 10/13/2011 Assessment & Plan (06/18/2023 11:14 AM CDT): Follows with Dr Fernandez- on statin, fibrate, zetia Check FLP Assessment & Plan (04/11/2021 11:17 AM CDT): Follows with Dr Fernandez - on statins, fibrate and zetia Will check labs Assessment & Plan (06/08/2018 10:21 AM CDT): Follows with Dr Fernandez- on statin, fibrate, zetia Check FLP and LFTs Psoriasis 07/23/2010 Assessment & Plan (10/12/2020 11:18 AM MANAGER CARDIOLOGY): She will discuss Jamey Kim with derm Hepatitis C antibody test positive 02/12/2010 Overview (12/25/2020): Drawn 01/2010 Vitamin D deficiency 12/19/2008 Assessment & Plan (04/11/2021 11:15 AM CDT): Will check levels Carpal tunnel syndrome 09/09/2008 Overview (02/11/2017): Overview: S/p surgery 1998 Malignant neoplasm of cervix 09/09/2008 Overview (02/11/2017): Overview: 1987 Cervical vertebral fusion 09/09/2008 Overview (02/11/2017): Overview: Dr Tracey 1990 Status post left knee replacement 09/09/2008 Overview (02/11/2017): Overview: Left 1996 OA Assessment & Plan (06/18/2023 11:09 AM CDT): Scheduled for revision later this year Discussed that she probably has some lymphedema distal to her surgery- encouraged compression socks Psoriatic arthritis 09/09/2008 Overview (02/11/2017): Overview: Dx made by Dr. Lora on 06/2005 based on stiffness; arthralgias; elevated ESR; rash. Placed on low dose prednisone. Plaquenil/MTX added 11/2007. Remicade added 04/2008. Assessment & Plan (12/01/2024 7:36 AM CDT): -holding Otezla, Mtx for now -can resume once synovial fluid cx and blood cx are negative Assessment & Plan (11/28/2024 10:50 PM CDT): -holding Otezla, Mtx for now -can resume once synovial fluid cx and blood cx are negative Assessment & Plan (06/28/2024 11:29 AM MANAGER CARDIOLOGY): Following with Dr Arriola and now on Minayrizjosé manuel in addition to MTX, doing well overall Assessment & Plan (06/18/2023 11:09 AM CDT): Following with Dr Arriola and now on Naz , doing well overall Assessment & Plan (04/11/2021 11:22 AM CDT): Follows with Dr Arriola Assessment & Plan (02/25/2020 11:23 AM CDT): Following with Dr Arriola and stable on Cosentyx Assessment & Plan (04/16/2019 11:03 AM CDT): Skin manifestations have been a lot worse recently- she is doing somewhat better on Otezla and will follow up with Dr Mosley in the near future Assessment & Plan (01/12/2019 8:21 PM CDT): Follows with Dr Arriola and Cosentyx dose recently increased to 300mg daily Monitoring labs have looked good Rec Shingrix and s/p PVX Assessment & Plan (10/02/2018 11:47 AM MANAGER CARDIOLOGY): Now established with Dr Arriola Doing fairly well on leflunomide and Cosentyx- > encouraged her to get labs done Assessment & Plan (06/08/2018 10:12 AM CDT): Plans to establish with Mellisa Arriola in a few weeks Currently on Cosentyx- ran out of leflunomide and cannot refill until she establishes with rheum but continues to do ok off Resolved Problems Problem Noted Date Diagnosed Date Resolved Date Acute hyponatremia 11/28/2024 Assessment & Plan (11/28/2024 10:49 PM CDT): -likely related to acute illness -received 1L IV NS in ED -repeat BMP in AM Immunosuppression 04/29/2022 11/30/2024 Assessment & Plan (11/28/2024 10:50 PM CDT): -given concern for septic joint, will hold otezla, Mtx COVID-19 virus infection 02/19/202207/2022 Assessment & Plan (02/19/2022 11:34 AM CDT): Unclear if she is on day 5 or 6 of symptoms but she is high risk Encouraged to seek out the mab infusion BLACK, if she is not able to get an appointment today will RX molnupiravir (paxlovid contraindicated given Xarelto) even though I'm not 100% sure she will be within 5 day window Reviewed CDC guidelines for isolation Encouraged to start with OTC medications with Robitussin DM , Flonase, etc 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 as well Prediabetes 06/10/2021 07/23/2021 Cellulitis of left lower extremity 05/31/2021 07/23/2021 Assessment & Plan (06/01/2021 1:25 PM CDT): Improving but it has only been 3 days since the ER visit On day 3 of clindamycin - continue this as instructed by ER MD Warnings given for when to RTC clinic vs ER She will use a sharpie to demarcate the area UTD on tdap Subacute cough 04/03/2021 04/29/2022 Assessment & Plan (07/23/2021 11:22 AM MANAGER CARDIOLOGY): Thought to represent airway hyperreactivity and did improve with montelukast, Advair, albuterol PRN PFTs scheduled to work this up further Assessment & Plan (04/11/2021 11:16 AM CDT): CXR unrevealing in February COVID negative Defers CT chest at this time Encouraged pt to complete recs from [facility] - Pulm +PFTs Trial with Advair (SER) and D/C prior to PFT testing Has albuterol for prn use Continue montelukast and anti histamines as instructed Will also refer to ENT Assessment & Plan (04/03/2021 4:07 PM CDT): Suspecting reactive airway vs asthma Prior CXR reviewed & unrevealing PFT testing to further evaluate Trial Advair inhaler pending D/C 1 wk prior to PFT testing Refilled albuterol advising liberal use as warranted Referral to pulm for further evaluation thereafter Cough 02/28/2021 07/23/2021 Assessment & Plan (03/14/2021 4:06 PM CDT): Recent CXR Defers COVID/FLU testing again She has tried Z pack almost 2 weeks ago Will have pt try a combination of budesonide inhaler (SER) and instructions reviewed + tessalon perles + dextromethorphan + guaifenesin + montelukast Trial with Pepcid in case GERD is contributing Consider PFTs/ENT referral as next steps Appropriate warnings given Assessment & Plan (02/28/2021 2:53 PM CDT): Allergies may be playing a role Will get CXR Defers repeat COVID and FLU testing Given the duration of sxs, will consider treating with Abx, SER Sending tessalon perles and albuterol for prn use (SER in light of her AFib) - she knows to when to go to UC or ER with her Afib or worsening sxs In the mean time, encouraged hydration and supportive care (hot tea/soups, etc.) RTC if not better Sinusitis, acute 01/16/2021 07/23/2021 Assessment & Plan (01/16/2021 3:51 PM CDT): Most likely viral given duration of symptoms However given her focal pain and obstruction, I am somewhat concerned about bacterial superinfection Will attempt to manage with Flonase, steam (since she can't tolerate saline rinses), decongestants If symptoms worsen or don't improve after 10 days, she will pull the trigger on antibiotics which I sent to her [facility] today Sore throat 10/19/2020 12/25/2020 Assessment & Plan (10/19/2020 1:32 PM MANAGER CARDIOLOGY): Her Centor criteria score is at most 1 (no cough, ?exudate, but -1 for age) but will obtain strep swab We discussed that cold viruses (inc COVID) could cause sore throat and laryngitis. Will swab for COVID Encouraged Throat Coat tea, Cepacol lozenges, steam If symptoms progress will go to UC/ER Adjustment disorder with depressed mood 10/12/2020 04/29/2022 Assessment & Plan (07/23/2021 11:27 AM MANAGER CARDIOLOGY): Tried bupropion but she ddn't tolerate well. Doesn't want to try anything else at this time. Assessment & Plan (12/25/2020 1:06 PM CDT): She could not tolerate bupropion but feels like the change in weather has been very helpful in this regard. Will CTM off meds for now Assessment & Plan (10/12/2020 11:11 AM MANAGER CARDIOLOGY): Will start bupropion for possible SAD and depressed mood SER. Advised 4-6 weeks for full effect. Need for influenza vaccination 06/09/2020 07/23/2021 Exposure to COVID-19 virus 05/26/2020 0 12/25/2020 Assessment & Plan (05/26/2020 8:46 AM CDT): Discussed COVID precautions, advised pt to self- isolate and monitor sx and temperature ED warnings for sob, chest pain, fever, respiratory distress given. Will order the test today. Advised pt to stay home Syncope 06/04/2019 02/25/2020 Assessment & Plan (06/08/2019 9:20 PM CDT): I suspect that this is due to her baseline low BP and vasovagal syncope rather than anything related to the possible vertebral artery occlusion. She follows up with cardiology in the very near future to r/o other cardiac causes like arryhtmia Neck mass 01/12/2019 03/23/2019 Assessment & Plan (01/12/2019 8:24 PM CDT): She has some asymmetry to her clavicles but there may be some soft tissue fullness is well. Await US results. Mild memory disturbance 10/02/2018 12/0 01/2021 Assessment & Plan (10/02/2018 11:54 AM MANAGER CARDIOLOGY): I suspect that this is related to her mood disorder or medication side effect rather than primary issue. Will check B12 and TSH to r/o other causes. Encouraged exercise, mindfulness, healthy diet, good sleep and will assess with formal testing if progressive. Strain of right shoulder 03/24/2018 Encounter for monitoring sotalol therapy 02/17/2017 06/08/2018 Assessment & Plan (04/20/2017 10:47 AM CDT): The patient's ECG today does not indicate any changes that would prohibit the use of Sotalol. As long as they remain on this medication, an ECG will be performed every 6 months for monitoring. She has not noted to have atrial fibrillation since approximately 03/05/2017, on interrogation of her implantable loop recorder. Can consider discontinuation of her antiarrhythmic drug therapy at this time. She can follow up in 3 months for an office visit and 12 lead EKG. Assessment & Plan (02/17/2017 10:14 AM CDT): The patient's ECG today does not indicate any changes that would prohibit the use of Sotalol. As long as they remain on this medication, an ECG will be performed every 6 months for monitoring. 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 Continues on Xarelto but dilt and sotalol have been DCed. Assessment & Plan (11/11/2017 10:42 AM CDT): She is post radiofrequency catheter ablation of her paroxysmal atrial fibrillation on 01/06/2017. She has not had any episodes of atrial fibrillation in February of 2017. She is maintaining sinus rhythm without the use of antiarrhythmic drug therapy. She continues to take anticoagulation as she has had a prior history of possible embolic event. Will also discontinue diltiazem at this time. She can follow up in 6 months for an office visit and 12 lead EKG. Assessment & Plan (07/14/2017 9:31 AM MANAGER CARDIOLOGY): She is post radiofrequency catheter ablation of her paroxysmal atrial fibrillation on 01/06/17. She has not had any episodes of atrial fibrillation since February 2017. At this time will decrease her sotalol to 40 mg twice daily for 1 week then discontinue. She will continue on her anticoagulation. She has had a prior history of an possible embolic event. If she recurrence of her atrial arrhythmia will manage expectantly. She can follow up in 6 months for an office visit and 12 lead EKG. Assessment & Plan (02/17/2017 10:15 AM CDT): She is post radiofrequency catheter ablation on 01/06/2017. She has had no episodes of atrial fibrillation since her ablation. Will continue on her same medications and she can follow up in 2 months for an office visit and 12 lead EKG. Thyroid activity decreased 10/13/2011 0 03/20/2018 Neutropenia 12/20/2008 06/08/2018 Adenoma 09/09/2008 01/12/2019 Overview (02/11/2017): Overview: L BREAST ADENOMA Hypercholesterolemia 09/09/2008 018 Hypoactive thyroid 09/09/2008 8 Encounters Date Type Department Care Team Description 06/02/2025 Orders Only [facility] Medicine Neurosurgery [address] [facility] Medicine 6th [place] [address] [place] [address] Wendy Marie NP Cervical vertebral fusion (Primary Dx) 05/31/2025 5:45 PM CDT Ancillary Procedure [facility] [address] [facility] [address] [place] [address] Status post placement of implantable loop recorder (Primary Dx); Paroxysmal atrial fibrillation (HCC) 04/27/2025 10:37 AM CDT - 04/27/2025 11:59 PM CDT Hospital Encounter [facility] Breast Imaging [facility] ([facility]) [address] [place] [address] Ana Haddad MD Abnormal chest CT; Breast asymmetry Discharge Disposition: Discharge to home or self care 04/27/2025 Results Follow-Up [facility] [address] [facility] 12th [place] [address] [place] [id number] Ana Haddad MD Diagnostic Mammogram Bilateral W Blue 04/20/2025 1:30 PM CDT Office Visit [facility] [address] [facility] [address] [place] [address] Janette Manuel NP Cardiac arrhythmia, unspecified cardiac arrhythmia type (Primary Dx) 04/19/2025 7:15 AM CDT Ancillary Procedure [facility] [address] [place] [address] Status post placement of implantable loop recorder (Primary Dx); Paroxysmal atrial fibrillation (HCC) 04/04/2025 [place]phone [facility] [address] [facility] [address] [place] [address] Wendy Bradley RN Prior Auth ([employer] auto-injectors) 03/28/2025 11:00 AM CDT Office Visit [facility] Medicine Rheumatology [address] [facility] 5th Floor [address] [place] [id number] Mellisa Arriola MD Right wrist pain (Primary Dx); Psoriasis, unspecified; Psoriatic arthritis (HCC) 03/17/2025 12:20 PM CDT - 03/17/2025 11:59 PM CDT Hospital Encounter [facility] [address] [place] [address] Roz Martines MD Chronic bilateral low back pain with sciatica, sciatica laterality unspecified Discharge Disposition: Discharge to home or self care 03/17/2025 [place]phone [facility] [address] [facility] 6th [place] [address] [place] [address] Roz Martines MD from Last 3 Months Immunizations Immunization Administration Dates Next Due Hep B Vaccine 02/23/2024,01/16/2024,08/25/2023 Influenza, Quadrivalent, Hig h Dose, Preservative Free, Intrr 06/18/2023 Influenza, Quadrivalent, Rec ombinant, Egg Free, Preservative Free, Intramuscular 06/04/2019,06/08/2018 Influenza, Quadrivalent, Spl it, Preservative Free, Intramuscular 04/29/2022,05/21/2021,06/09/2020 Influenza, Trivalent, High D ose, Split, Preservative Free, Intramuscular 06/28/2024 Influenza, Trivalent, Preser vative Free, Intramuscular 05/18/2015,05/01/2015,07/08/2013,07/27 Influenza, Trivalent, Split, Preservative Free, Intradermal 06/25/2017,06/20/2016,05/24/2014 Influenza, Unspecified 05/04/2015 PPD TEST 09/23/2011,12/17/2007 Pfizer SARS-CoV-2 Monovalent Vaccination (12+ Yrs) PURPLE 12/01/2021,04/02/2021,11/07/2020,10/17 Pneumococcal Conjugate Pcv20 05/13/2022 Pneumococcal Polysaccharide PPV23 07/27/2012 Tdap 09/16/2021,12/29/2015,07/27/2012 ZOSTER Recombinant 06/16/2020 Surgical History Surgery Date Site/Laterality Comments CERVICAL SPINE SURGERY around 2014 CARPAL TUNNEL RELEASE 08/18/1998 - 08/17/1999 Bilateral ABLATION 08/18/2016 - 08/17/2017 afib CERVICAL FUSION 08/18/1999 - 08/17/2000 CARDIAC ELECTROPHYSIOLOGY MA PPING AND ABLATION FLUORO GUIDED ASPIRATION OR INJECTION LARGE JOINT BILATERAL 04/29/2018 Bilateral FL UPPER GI AIR CONTRAST W KUB 06/25/2018 Bilateral FL UPPER GI AIR CONTRAST W KUB 11/12/2018 Bilateral FL UPPER GI AIR CONTRAST W KUB 12/10/2018 Bilateral FL UPPER GI AIR CONTRAST W KUB 04/29/2019 Bilateral FL UPPER GI AIR CONTRAST W KUB 01/27/2020 Bilateral FL UPPER GI AIR CONTRAST W KUB 06/26/2020 Bilateral FL UPPER GI AIR CONTRAST W KUB 01/01/2021 Bilateral FLUORO GUIDED INJECTION SHOU LDER RIGHT 07/25/2021 Right FL UPPER GI AIR CONTRAST W KUB 08/23/2021 Bilateral FL UPPER GI AIR CONTRAST W KUB 12/26/2021 Bilateral FLUORO GUIDED INJECTION SHOU LDER RIGHT 01/23/2022 Right FL UPPER GI AIR CONTRAST W KUB 09/05/2022 Bilateral FLUORO GUIDED INJECTION SHOU LDER RIGHT 10/03/2022 Right FL UPPER GI AIR CONTRAST W KUB 02/06/2023 Bilateral FLUORO GUIDED ASPIRATION OR INJECTION LARGE JOINT BILATERAL 03/26/2023 Bilateral FL UPPER GI AIR CONTRAST W KUB 01/28/2024 Bilateral FLUORO GUIDED ASPIRATION OR INJECTION LARGE JOINT BILATERAL 03/08/2024 Bilateral COLONOSCOPY ESOPHAGOGASTRODUODENOSCOPY KNEE ARTHROSCOPY Bilateral multiple; last one in 1989 OTHER SURGICAL HISTORY 11/15/2022 Medtronic Loop Recorder - left chest. OTHER SURGICAL HISTORY 10/23/2017 Medtronic Loop Recorder - left chest. Explanted on 11/15/22 REPLACEMENT TOTAL KNEE 08/18/1995 - 08/17/1996 Left REVISION TOTAL KNEE ARTHROPLASTY 09/05/2023 Left FL UPPER GI AIR CONTRAST W KUB 03/17/2025 Bilateral BREAST BIOPSY Left benign Medical History Medical History Date Comments Hx Other Medical A-Fib Rheumatoid arthritis (HCC) Rheum atoid arthritis Hypercholesteremia Diabetes mellitus Atrial fibrillation (HCC) Cancer (HCC) Hypertension Obesity Myocardial infarction (HCC) Low back pain Chronic pain disorder Extremity pain Anemia Colon polyp Chronic diarrhea Type 2 diabetes mellitus Cervical cancer (HCC) Cellulitis of left lower extremity 05/31/2021 COVID-19 virus infection 02/19/2022 Adjustment disorder with depressed mood 10/12/19 21 Psoriatic arthritis (HCC) Family History Medical History Relation Name Comments Cerebral palsy Brother 2 Coronary artery disease Brother 2 Mikayla nary Artery Disease; Dementia Brother 2 Diabetes Brother 2 Rectal cancer Cousin 1 Breast cancer Cousin 2 Uterine cancer Cousin 2 Diabetes Father Heart attack Father Myocardial Infa rction; Heart disease Father Bone cancer Father's Brother Breast cancer Father's Sister Asthma Mother Mental illness Mother Suicide Completion Mother Rectal cancer Paternal Grandmother Anesthesia problems Neg Hx Relation Name Status Comments Brother 1 Alive Brother 2 Cousin 1 Other Cousin 2 Father Father's Brother Father's Sister Mother Paternal Grandmother Social History Tobacco Use Types Packs/Day Years Used Date Smoking Tobacco: Former Cigarettes 0.5 30 1 982 - 2011 Smokeless Tobacco: Never Tobacco Cessation:Counseling Given: Not Answered Alcohol Use Standard Drinks/Week Comments No 0 (1 standard drink = 0.6 oz pur e alcohol) [facility] Utilities Answer Date Recorded In the past 12 months has th e electric, gas, oil, or water company threatened to shut off services in your home? No 11/29/2024 Social Connection and Isolation Panel Answer Date Recorded In a typical week, how many times do you talk on the phone with family, friends, or neighbors? Twice a week 11/29/2024 How often do you get togethe r with friends or relatives? Once a week 11/29/2024 How often do you attend hoahaoism or baptism serv ices? Patient declined 11/29/2024 Do you belong to any clubs o r organizations such as hoahaoism groups, unions, fraternal or athletic groups, or school groups? Patient declined 11/29/2024 How often do you attend meet ings of the clubs or organizations you belong to? Patient declined 11/29/2024 Are you , , di vorced, , never , or living with a partner? 11/29/2024 AUDIT-C Answer Date Recorded Q1: How often do you have a drink containing alc ohol? 2-4 times a month 08/26/2024 Q2: How many drinks containi ng alcohol do you have on a typical day when you are drinking? 1 or 2 08/26/2024 Q3: How often do you have si x or more drinks on one occasion? Never 08/26/2024 Overall Financial Resource Strain (CARDIA) Answe r Date Recorded How hard is it for you to pa y for the very basics like food, housing, medical care, and heating? Not hard at all 11/29/2024 PHQ-2 Answer Date Recorded PHQ-2 Total Score (If total score is 3 or more points, staff should administer the PHQ-9) 0 06/18/2023 Hunger Vital Sign Answer Date Recorded Within the past 12 months, y ou worried that your food would run out before you got the money to buy more. Never true 11/30/19 25 Within the past 12 months, t he food you bought just didn't last and you didn't have money to get more. Never true 11/29/2024 PRAPARE - Transportation Answer Date Re corded In the past 12 months, has l ack of transportation kept you from medical appointments or from getting medications? No 11/16 In the past 12 months, has l ack of transportation kept you from meetings, work, or from getting things needed for daily living? No 11/29/2024 Housing Stability Vital Sign Answer Jimmy e Recorded In the last 12 months, was t here a time when you were not able to pay the mortgage or rent on time? No 11/29/2024 Number of Times Moved in the Last Year Not on fi le 11/29/2024 Homeless in the Last Year Not on file 2024 Personal Safety Answer Date Recorded Have you ever been in or are you currently in a harmful physical or emotional relationship or is someone making you feel afraid or unsafe? Denies 11/28/2024 Comments No Sex and Gender Information Value Date Recorded Sex Assigned at Not on file Legal Sex Female 12:17 PM MANAGER CARDIOLOGY Gender Identity Not on file Sexual Orientation Not on file Obstetrics History Para Term AB IAB SAB Ectopic Multiple Livin g Live Births 0 0 0 0 0 0 0 0 0 0 0 Last Filed Vital Signs Vital Sign Reading Time Taken Comments Blood Pressure 142/72 04/20/2025 12:49 PM CDT Pulse 71 04/20/2025 12:49 PM CDT Temperature 36.7 C (98 F) 03/28/2025 10:40 AM CDT Respiratory Rate 20 03/17/2025 1:52 PM CDT Oxygen Saturation 98% 03/14/2025 12:38 PM CDT Inhaled Oxygen Concentration - - Weight 67.1 kg (148 lb) 04/27/2025 11:03 AM CDT Height 162.6 cm (5' 4) 04/27/2025 11:03 AM CDT Body Mass Index 25.4 04/27/2025 11:03 AM CDT Plan of Treatment Scheduled Procedures Name Priority Associated Diagnoses Date/Ti me ESOPHAGOGASTRODUODENOSCOPY Anemia, unspecified type COLONOSCOPY Anemia, unspecified type Health Maintenance Due Date Last Done Comments Zoster Vaccine (2 of 2) 08/11/2020 06/16/2020 Foot Exam 04/29/2023 04/29/2022, 08/2 12/2020, 04/11/2021 Depression Screening 06/18/2024 06/18/2023, 04/29/2022, 04/11/2021, Additional history exists Covid-19 Vaccine (5 - 2024-2 6 season) 2025 12/01/2021, 04/02/2021, 11/07/2020, Additional history exists Influenza Vaccine (#1) 2025 , 06/18/2023, 04/29/2022, Additional history exists Albumin Creatinine Ratio, Urine 06/28/2025 06/28/2024, 06/18/2023, 03/17/2023, Additional history exists Well Visit 65+ 06/28/2025 06/28/2024, 08/2022, 06/18/2023, Additional history exists Hemoglobin A1C 09/14/2025 03/14/2025, 11/16, 06/28/2024, Additional history exists Fall Risk Assessment 12/01/2025 12/01/2024, 06/18/2023, 06/26/2020 Dilated Eye Exam 03/10/2026 03/10/2025, 11/17/2020 Lipid Panel 03/14/2026 03/14/2025, 11/16, 06/28/2024, Additional history exists eGFR 03/14/2026 03/14/2025, 11/16, 11/29/2024, Additional history exists Breast Cancer Screening-Mammogram 04/27/2026 04/27/2025, 05/03/2024, 02/19/2023, Additional history exists Colon Cancer Screening-Colonoscopy 06/18/2026 06/18/2021, 09/11/2015 Osteoporosis Screening-Bone Density Scan 11/08/2026 11/08/2024, 01/22/2019 DTaP/Tdap/Td Vaccine (4 - Td or Tdap) 09/16/2031 09/16/2021, 12/29/2015, 07/27/2012 Hepatitis C Screening Completed 01/06/2019, 019 Cervical Cancer Screening Discontinued 01/14/2019, 01/2014 Colon Cancer Screening-CT Colonography Discontinued 06/18/2021, 09/11/2015 Colon Cancer Screening-DNA Stool Discontinued 06/18/20, 09/11/2015 Colon Cancer Screening-FIT Discontinued 06/18/2021, Colon Cancer Screening-Sigmoidoscopy Discontinued 06/18/2021, 09/11/2015 Pneumococcal vaccine 65+ Completed 05/13/2022, 07/18 Hepatitis B Screening Completed 02/23/2024 , 01/16/2024, 08/25/2023, Additional history exists Medical Devices Implanted Type Area Business Practices Supervisor Device Identifier Shelf Expiration Date Model / Serial / Lot Synthes 6.5mm 8mm 65mm 32mm Large Hexagonal Socket Cancellous 3.5mm 217.065 - [id number] Implanted:Qty: 1 on 09/05/2023 by Marcel Eli MD at [facility] Other - see comments Left: Knee Synthes I 217.065 / / Description:From instrument tray Synthes 6.5mm 8mm 70mm 32mm Large Hexagonal Socket Cancellous 3.5mm 217.070 - [id number] Implanted:Qty: 1 on 09/05/2023 by Marcel Eli MD at [facility] Other - see comments Left: Knee Synthes I 217.070 / / Description:From instrument tray Synthes 13mm Washer Orthopedic Stainless Steel Nonsterile 6.5/7/7.3mm 219.99 - [id number] Implanted:Qty: 2 on 09/05/2023 by Marcel Eli MD at [facility] Other - see comments Left: Knee Synthes I 219.99 / / Description:From instrument tray Medtronic [employer] Reveal Linq Ii Implantable Electric Locomotive Firer/Fireman Lnq22 - [id number] - [id number] Implanted:Qty: 1 on 11/15/2022 by Mario Gao MD at [facility] Medtronic Inc [id number] 03/16/2024 LNQ 22 / [id number] / Duracon A-P Lipped Tibial Insert, Nadya Med, Thkns 11 Mm Implanted:Qty: 1 on 09/05/2023 by Marcel Eli MD at [facility] Left: Knee [employer] 09/10/2026 [id number] Description:Implant pause co mpleted prior to opening implant on sterile field Explanted Type Area Business Practices Supervisor Device Identifier Shelf Expiration Date Model / Serial / Lot Left Knee Poly Explanted:Qty: 1 on 09/05/2023 by Freddy Rosales MD at [facility] Other - see comments Left: Knee Other N/A / [id number] / N/A Description:Implanted 20+ ye ars ago. Unable to read numbers on implant. Disposed of per policy. Medtronic Cardiac Rhythm Mgmt Linqsys Reveal Linq Mycarelink Insertable Loop Recorder Automatic - [id number] - [id number] Implanted:Qty: 1 on 10/23/2018 by Mario Gao MD at [facility] Explanted:Qty: 1 on 11/15/2022 by Mario Gao MD at [facility] N/A: Chest Wall Medtronic Cardiac Rhythm Mgmt 08/31/2019 LINQSYS / [id number] / Procedures Procedure Name Priority Date/Time Associated Diagnosis Comments DEVICE CHECK - REMOTE Routine 05/31/2025 9:05 AM CDT Paroxysmal atrial fibrillation (HCC) DIAGNOSTIC MAMMOGRAM BILATERAL W BLUE Routine 04/27/2025 11:[address] Breast asymmetry ECG 12-LEAD Routine 04/20/2025 1:29 PM CDT Cardiac arrhythmia, unspecified cardiac arrhythmia type DEVICE CHECK - REMOTE Routine 04/19/2025 10:19 AM CDT Paroxysmal atrial fibrillation (HCC) TRANSFORAMINAL EPIDURAL INJECTION LUMBAR SACRAL FIRST LEVEL BILATERAL Schedule Routine, Read Routine (OP Routine) 03/17/2025 1:46 PM CDT Chronic bilateral low back pain with sciatica, sciatica laterality unspecified EGFR Routine 03/14/2025 1:58 PM CDT Essential hypertension Hyperlipidemia, unspecified hyperlipidemia type LIPID PANEL Routine 03/14/2025 1:58 PM CDT Hyperlipidemia, unspecified hyperlipidemia type POCT HEMOGLOBIN A1C Routine 03/14/2025 12:30 PM CDT Type 2 diabetes mellitus with diabetic polyneuropathy, without long-term current use of insulin (HCC) DEXA AXIAL SKELETON BONE DENSITY 1 OR MORE SITES Schedule Routine, Read Routine (OP Routine) 11/08/2024 9:33 AM CDT Encounter for screening for osteoporosis Other osteoporosis without current pathological fracture ALBUMIN CREATININE RATIO, URINE Routine 06/28/2024 11:55 AM MANAGER CARDIOLOGY Encounter for Medicare annual wellness exam Type 2 diabetes mellitus with diabetic polyneuropathy, without long-term current use of insulin (HCC) COLONOSCOPY 06/18/2021 1:17 PM CDT DIABETES EYE EXAM Routine 11/17/2020 THINPREP PAP WITH HPV Routine 01/14/2019 HEPATITIS C ANTIBODY Routine 01/06/2019 9:03 AM CDT from Last 3 Months or Most Recently Relevant to Health Maintenance Results * DEVICE CHECK - REMOTE (05/31/2025 9:05 AM CDT) Anatomical Region Laterality Modality Other Narrative 06/05/2025 11:14 AM CDT Medtronic REVEAL LinQ II implanted November 15, 2022 for AF management. Patient had a routine [employer] remote transmission of their implantable loop recorder on May 31, 2025. Medications: ASA 81mg daily, Xarelto 20 mg daily Interrogation of the patients device demonstrates that the Linq is functioning appropriately (0) Symptom events Auto Device detected events of, (0) Pause, (0) Bradycardia, (0) Tachy, (0) AT, (0) AF, Presenting Rhythm: normal sinus rhythm at 88 bpm Battery: Good Plan: 1) Routine Remote with no new events. 2) Continue to monitor remotely. Osbaldo Fernandez Device Community Relations Specialist us Mario Gao MD CV CARDIAC SERVICES PRO CEDURES Final Result * Diagnostic Mammogram Bilateral W Blue (04/27/2025 11:31 AM CDT) Anatomical Region Laterality Modality Breast Bilateral Mammography 04/27/2025 12:0 8 PM CDT Impressions 04/27/2025 12:08 PM CDT 1. Mammographically stable masses in the LEFT breast are considered benign and correspond to the findings on chest CT. 2. No new suspicious abnormality in EITHER breast. OVERALL FINAL ASSESSMENT: BI-RADS Category 2: Benign. RECOMMENDATION: Annual screening mammography is recommended. Dr. Kenny discussed the above findings and recommendations with the patient, who expressed her understanding of the management plan. Electronically signed by: Mellisa Kenny M.D. Narrative 04/27/2025 12:08 PM CDT EXAMINATION: BILATERAL DIGITAL DIAGNOSTIC MAMMOGRAM INCLUDING CAD AND BILATERAL DIGITAL BREAST TOMOSYNTHESIS HISTORY: 69-year-old female due for annual mammographic evaluation. Of note, on recent chest CT, there was a nodular upper outer quadrant left breast asymmetry. COMPARISON: Multiple prior mammograms dating back to 2017. Chest CT 11/28/2024 and 01/08/2023. TECHNIQUE: Full field digital mammographic views of BOTH breasts were performed, including computer aided detection (CAD) and BILATERAL digital breast tomosynthesis (DBT). BREAST PARENCHYMAL COMPOSITION: There are scattered areas of fibroglandular density. MAMMOGRAM FINDINGS: There are multiple masses in the LEFT breast which are mammographically stable compared tomultiple prior mammograms, and correspond to the findings on chest CT. There is no new suspicious abnormality in EITHER breast. us Ana Haddad MD IMG MAMMO PROCEDURE S Final Result * ECG 12 lead (04/20/2025 1:29 PM CDT) us Janette Manuel NP ECG ORDERABLES Final Resu lt * DEVICE CHECK - REMOTE (04/19/2025 10:19 AM CDT) Anatomical Region Laterality Modality Other Narrative 04/19/2025 2:40 PM CDT Revert.IOtronic REVEAL LinQ II implanted November 15, 2022 for AF management. Patient had a routine [employer] remote transmission of their implantable loop recorder on April 19, 2025. Medications: ASA 81mg daily, Xarelto 20 mg daily Interrogation of the patients device demonstrates that the Linq is functioning appropriately (0) Symptom events Auto Device detected events of, (0) Pause, (0) Bradycardia, (0) Tachy, (0) AT, (0) AF, Presenting Rhythm: Normal sinus rhythm at 83 bpm Battery: Good Plan: 1) Routine Remote with no new events. 2) Continue to monitor remotely. Osbaldo Garciakinga Device Community Relations Specialist us Mario Gao MD CV CARDIAC SERVICES PRO CEDURES Final Result * IR Transforaminal Epidural Injection Lumbar Sacral First Level Bilateral (03/17/2025 1:46 PM CDT) Narrative [facility] - 03/17/2025 1:47 PM CDT The images from this study are not interpreted by Radiology. Please refer to the physician's procedure / OR operative note. us Roz Martines MD IMG IR PROCEDURES Final Re sult [facility] * (ABNORMAL) eGFR (03/14/2025 1:58 PM CDT) eGFR 56(L) >=60 mL/min/1. 73 m2 Comment: Interpretive Data Reference Interval Normal >/= 90 mL/min/1.73m2 Mildly decreased* 60 - 89 mL/min/1.73m2 Mildly to moderately decreased 45 - 59 mL/min/1.73m2 Moderately to severely decreased 30 - 44 mL/min/1.73m2 Severely decreased 15 - 29 mL/min/1.73m2 Kidney Failure < 15 mL/min/1.73m2 *Relative to young adult level Estimated glomerular filtration rate is determined by the 2020 CKD-EPI equation recommended by the National Kidney Foundation (A Unifying Approach to GFR Estimation: Recommendations of the NKF-ASK Task Force on Reassessing the Inclusion of Race in Diagnosing Kidney Disease, JASN 2020). The CKD-EPI equation should not be used for patients with unstable renal function and has not been validated in children and those over 70. Current interpretive data was last reviewed 2021. Blood 03/14/2025 1:58 PM CDT 03/14/2025 3:36 PM CDT us Ana Haddad MD LAB BLOOD ORDERABLE S Final Result [facility] Department [place] [address] * Lipid panel (03/14/2025 1:58 PM CDT) Cholesterol 158 30 - 199 mg/dL Comment: Interpretive Data Ages < or = 19 years Acceptable: <170 mg/dL Borderline high: 170-199 mg/dL High: >or= 200 mg/dL Ages > or = 20 years Desirable: <200 mg/dL Borderline high: 200-239 mg/dL High: >or= 240 mg/dL Literature References: 1. Expert Panel on Integrated Guidelines for Cardiovascular Health and Risk Reduction in Children and Adolescents. Pediatrics 2011;128:S213 2. NCEP Expert Panel. Circulation 2004;110:227 Current Interpretive Data was last revised on 2018. Triglycerides 110 <=149 mg/dL [facility] Comment: Interpretive Data Ages < or = 9 years Acceptable: <75 mg/dL Borderline high: 75-99 mg/dL High: >or= 100 mg/dL Ages 10 to 20 years Acceptable: <90 mg/dL Borderline high: 90-129 mg/dL High: >or= 130 mg/dL Ages > or = 20 years Desirable: <150 mg/dL Borderline high: 150-199 mg/dL High: 200-499 mg/dL Very high: >or= 499 mg/dL Literature References: 1. Expert Panel on Integrated Guidelines for Cardiovascular Health and Risk Reduction in Children and Adolescents. Pediatrics 2011;128:S213 2. NCEP Expert Panel. Circulation 2004;110:227 Current Interpretive Data was last revised on 2018. HDL 56 >=40 mg/dL [facility] Comment: Interpretive Data Ages < or = 19 years Acceptable: >45 mg/dL Borderline low: 40-45 mg/dL Low: <40 mg/dL Ages > or = 20 years Desirable: >or= 60 mg/dL Low: <40 mg/dL Literature References: 1. Expert Panel on Integrated Guidelines for Cardiovascular Health and Risk Reduction in Children and Adolescents. Pediatrics 2011;128:S213 2. NCEP Expert Panel. Circulation 2004;110:227 Current Interpretive Data was last revised on 2018. LDL, calculated 82 <=129 mg/dL [facility] Comment: Interpretive Data Ages < or = 19 years Acceptable: <110 mg/dL Borderline high: 110-129 mg/dL High: >or= 130 mg/dL Ages > or = 20 years Optimal: <100 mg/dL Near optimal: 100-129 mg/dL Borderline high: 130-159 mg/dL High: >160 mg/dL Calculated using the Andrew LDL-C estimating equation. This equation was implemented on 2024. Prior to this date LDL-C was estimated using the Friedewald equation. Literature References: 1. Expert Panel on Integrated Guidelines for Cardiovascular Health and Risk Reduction in Children and Adolescents. Pediatrics 2011;128:S213 2. NCEP Expert Panel. Circulation 2004;110:227 3. Andrew Mckeon et al. CRISTY Cardiol. 2020 December 16;5(5):540-548. doi: 10.1001/jamacardio.2020.0013 Current Interpretive Data was last revised on 2024. Non-HDL Cholesterol 102 mg/dL [facility] Comment: Interpretive Data Ages < or = 19 years Acceptable: <120 mg/dL Borderline high: 120-144 mg/dL High: >145 mg/dL Ages > or = 20 years When triglycerides are >200 mg/dL, Non-HDL cholesterol is a secondary target of therapy with treatment goals that are 30 mg/dL greater than the LDL cholesterol target. Literature References: 1. Expert Panel on Integrated Guidelines for Cardiovascular Health and Risk Reduction in Children and Adolescents. Pediatrics 2011;128:S213 2. NCEP Expert Panel. Circulation 2004;110:227 Current Interpretive Data was last revised on 2018. Chol/HDL ratio 3 [facility] Blood 03/14/2025 1:58 PM CDT 03/14/2025 3:28 PM CDT Ana Haddad MD LAB BLOOD ORDERABLE S Final Result [facility] Department [place] [address] * (ABNORMAL) POCT hemoglobin A1c (03/14/2025 12:30 PM CDT) Hemoglobin A1C, POC 6.0(A) 4.0 - 5.6 % Blood 03/14/2025 12:3 0 PM CDT Ana Haddad MD POINT OF CARE TEST ORDERABLES Final Result * Dexa Axial Skeleton Bone Density 1 or 2 Site (11/08/2024 9:33 AM CDT) Anatomical Region Laterality Modality Body N/A Radiographic Ariana ging Narrative 11/08/2024 12:29 PM CDT Patient Name: Jocelin Crowley Date of : 1955 Date of scan: 11/08/2024 Bone mineral density was performed on a HoloIGIGI Discovery Densitometer. Based on machine cross-calibration and precision studies the least significant changes of this densitometer is 0.024 g/cm2 at the spine, 0.020 g/cm2 at the total proximal femur, and 0.014g/cm2 at the forearm. HISTORY: This is a 69 y.o. postmenopausal female with a history of low bone mass. She reports that she quit smoking about 13 years ago. Her smoking use included cigarettes. She started smoking about 43 years ago. She has a 15 pack-year smoking history. She has never used smokeless tobacco. Currently on treatment with anticoagulants and current complaint of arm pain, back pain, neck pain, and leg pain. INDICATIONS: Menopause status and history of low bone mass. FINDINGS: BONE MINERAL DENSITY OF THE LUMBAR SPINE Bone Mineral Density (BMD) of the lumbar spine was measured from L1-L4 and the average density was calculated to be 0.940 gm/cm2. This corresponds to a T-score (standard deviations from the mean of young adults) of -1.0. There is no previous study available for comparison. BONE MINERAL DENSITY OF THE PROXIMAL FEMUR Bone Mineral Density (BMD) of the left hip total was found to be 0.783 gm/cm2. This corresponds to a T-score standard deviations from the mean of young adults of -1.3. Femoral neck is 0.717 gm/cm2 with a T-score (standard deviations from the mean of young adults) of -1.2. There is no previous study available for comparison. SUMMARY: Bone mineral density shows evidence of low bone mass at the proximal femur and moderately increased fracture risk (Osteopenia). ADDITIONAL COMMENTS: Postmenopausal Women and Men Over 50: Diagnostic criteria: Osteoporosis: BMD at or below -2.5 T-score; Osteopenia (low bone mass): BMD between -1.0 and -2.5 T-score. If the patient has a history of a fragility fracture, a fracture that occurred with trauma equivalent to a fall from a standing position or less, then the diagnosis is osteoporosis regardless of bone density. The history and data sections of the bone mineral density scan were prepared by Magaly Bonds)(CBDT)who is accredited by the International Society of Clinical Densitometry. The overall patient assessment and scan interpretation were performed by Sylvie Martinez M.D. who is certified by the International Society of Clinical Densitometry. [id number] us Mellisa Arriola MD IMG DXA PROCEDURES Final Res ult * Albumin Creatinine Ratio, Urine (06/28/2024 11:55 AM MANAGER CARDIOLOGY) Microalb, Ur <7.0 0.0 - 22.9 mg/L [facility] Comment:Repeated and Verifie d Random Urine Creatinine 49.7 mg/dL [facility] Microalb/Creat Ratio <14.1 NO CALC 0.0 - 29.9 mg/g [facility] Urine 06/28/2024 11:5 5 AM MANAGER CARDIOLOGY 06/28/2024 12:57 PM MANAGER CARDIOLOGY us Ana Haddad MD LAB URINE ORDERABLE S Final Result [facility] * COLONOSCOPY (06/18/2021 1:17 PM CDT) Anatomical Region Laterality Modality Other Narrative Procedure Note Mason Presley MD - 06/18/2021 1:17 PM CDT [facility] Patient Name: Jocelin Crowley Procedure Date: 06/18/2021 1:17 PM Date of : 1955 Admit Type: Outpatient Age: 65 Gender: Female Attending MD: Mason Presley M.D. Room: [facility] ENDOSCOPY ROOM 3 Note Status: Addendum Procedure: Colonoscopy Indications: Last colonoscopy: August 2015, Unexplained iron deficiency anemia Referring MD: Irena Donovan PA-C Providers: Mason Presley M.D. Medicines: Monitored Anesthesia Care Complications: No immediate complications. Estimated Blood Loss: Estimated blood loss was minimal. Procedure: Pre-Anesthesia Assessment: - Immediately prior to administration ofmedications, the patient was re-assessed for adequacy to receive sedatives. - The risks and benefits of the procedure and the sedation options and risks were discussed with the patient. All questions were answered and informed consent was obtained. The benefits, risks and alternatives of theprocedure and sedation were discussed and informed consentwas obtained. All questions were answered. Please referto the signed informed consent document in the medical record. The scope was passed under direct vision.The [id number] endoscope was introduced through the anus and advanced to the terminal ileum. The colonoscopy was performed without difficulty. The patient tolerated the procedure well. The qualityof the bowel preparation was evaluated using the BBPS ([place] Bowel Preparation Scale) with scores of:Right Colon = 2 (minor amount of residual staining, small fragments of stool and/or opaque liquid, but mucosa seen well), Transverse Colon = 2 (minor amount of residual staining, small fragments of stool and/or opaque liquid, but mucosa seen well) and Left Colon= 2 (minor amount of residual staining, smallfragments of stool and/or opaque liquid, but mucosa seenwell). The total BBPS score equals 6. The quality of the bowel preparation was fair. The bowel preparationused was Miralax via split dose instruction. The qualityof the bowel preparation was adequate. Large pieces of stool that were able to be moved with the scope tosee underneath. Findings: The perianal and digital rectal examinations were normal. The terminal ileum appeared normal. A 3 mm polyp was found in the ascending colon. The polyp was sessile. The polyp was removed with a cold snare. Resection and retrieval were complete. A 2 mm polyp was found in the rectum. The polyp was sessile. Thepolyp was removed with a cold biopsy forceps. Resection and retrieval were complete. Multiple medium-mouthed diverticula were found in the sigmoidcolon. Impression: - Preparation of the colon was fair. - The examined portion of the ileum was normal. - One 3 mm polyp in the ascending colon, removedwith a cold snare. Resected and retrieved. - One 2 mm polyp in the rectum, removed with a cold biopsy forceps. Resected and retrieved. - Diverticulosis in the sigmoid colon. Recommendation: - Repeat colonoscopy in 5 years for surveillance. - Await pathology results. Electronically signed by Mason Presley MD Mason Presley M.D. 06/18/2021 2:05:56 PM . Number of Addenda: 1 Note Initiated On: 06/18/2021 1:17 PM Recognized by the [place] [employer] for promoting quality in endoscopy Addendum Number: 1 Addendum Date: 06/18/2021 2:08:25 PM OK to restart anticoagulation. Electronically signed by Mason Presley MD Mason Presley M.D. 06/18/2021 2:08:45 PM . Mason Presley MD ENDOSCOPY PROCEDURES Edited Result - Final * DIABETES EYE EXAM (11/17/2020) Diabetic Eye Exam Normal Historical Provider HEALTH MAINTENANCE Final Result * ThinPrep Pap with HPV (01/14/2019) Historical Provider LAB CYTOLOGY ORDERABLES F inal Result [facility] Department [place] [address] * Hepatitis C antibody (01/06/2019 9:03 AM CDT) Hep C Ab NON-REACT LORENE NON-REACT LORENE [facility] [place] SIGNAL TO CUT-OFF 0.01 <1.00 [facility] [place] Comment: HCV antibody was non-reactive. There is no laboratory evidence of HCV infection. In most cases, no further action is required. However, if recent HCV exposure is suspected, a test for HCV RNA (test code 41825) is suggested. For additional information please refer to http://education.zkipster.com/faq/SXJ89k8 (This link is being provided for informational/ educational purposes only.) 01/06/2019 9:03 AM CDT 01/06/2019 9:04 AM CDT Narrative [facility] - 01/07/2019 3:56 PM CDT FASTING:YES FASTING: YES Resulting Agency Comment Performing Organization Information: Site ID: [id number] Name: [facility] Address: [facility] [place] [id number] Director: Dominic Scott D.O., MPH us Ana Haddad MD LAB MICROBIOLOGY - GENERAL ORDERABLES Final Result [facility] [place] from Last 3 Months or Most Recently Relevant to Health Maintenance Insurance [employer] MEDICARE [facility] [employer] AETNA MEDICARE Advance Directives For more information, please contact: [phone] * Full Code (Latest Code Status on File) Date Activated Date Inactivated Comments 11/28/2024 9:06 PM 12/01/2024 7:02 PM * Full Code Date Activated Date Inactivated Comments 09/05/2023 6:35 PM 09/06/2023 4:36 PM Care Teams Cell Geneticist Relationship Specialty Start Date End Date Ana Haddad MD PCP - General 01/08/17 Roz Martines MD Surgeon Orthopedic Surgery 01/12/19 Mellisa Arriola MD Consulting Physician Internal Medicine 01/12/19 Mario Gao MD Consulting Physician Cardiology 01/12/19 Bonita Mosley MD PhD Dermatology 01/12/19 Linda Milner MD [address] [facility] [phone] [place] [id number] Referring Physician Obstetrics and Gynecology 01/12/19 Fariba Fernandez MD [address] [facility] [place] [phone] [place] [address] Referring Physician Endocrinology Diabetes & Metabolism 01/12/19 Marcel Eli MD [address] [facility] [address] [place] [address] Surgeon Orthopedic Surgery 09/06/23
--- OUTSIDE RECORDS SUMMARY | 2025-06-17 13:39 | XMS_ITS | Encounter Summary ---
Author Organization [facility] Medical Group Address [address] [address] Care Team Providers Care Blue Leather Sorter Name Role Phone Galina Nunes MD Primary Care Provider [phone] Ana Haddad MD Primary Care Provi marcus Galina Nunes MD Primary Care Provider [phone] Ana Haddad MD Primary Care Provi marcus Galina Nunes MD Primary Care Provider [phone] Ana Haddad MD Primary Care Provi marcus Galina Nunes MD Primary Care Provider [phone] Ana Haddad MD Primary Care Provi marcus Roz Martines MD Unavailable [phone] Mellisa Arriola MD Unavailable [phone] Mario Gao MD Unavailable [phone] Bonita Mosley MD PhD Unavailable Linda Milner MD Unavailable [phone] Fariba Fernandez MD Unavailable +[phone] Marcel Eli MD Unavailable [phone] Encounter Details Date Type Department Care Team (Late st Contact Info) Description 11/25/2016 Orders Only Arrhythmia Center Provider, MD Sofía [facility] [place] [address] Social History Tobacco Use Types Packs/Day Years Used Date Smoking Tobacco: Never Assessed Alcohol Use Standard Drinks/Week Comments No 0 (1 standard drink = 0.6 oz pur e alcohol) Comments Unknown Sex and Gender Information Value Date Recorded Sex Assigned at Not on file Legal Sex Female 12:17 PM MANAGER AGENCY Gender Identity Not on file Sexual Orientation Not on file documented as of this encounter Plan of Treatment Scheduled Procedures Name Priority Associated Diagnoses Date/Ti me ESOPHAGOGASTRODUODENOSCOPY Anemia, unspecified type COLONOSCOPY Anemia, unspecified type documented as of this encounter Procedures Procedure Name Priority Date/Time Associated Diagnosis Comments CARDIOLOGY REPORT 11/25/2016 documented in this encounter Results * CARDIOLOGY REPORT (11/25/2016) Anatomical Region Laterality Modality Other Narrative 11/25/2016 Ordered by an unspecified provider. us Historical Provider [facility] Final Result documented in this encounter Visit Diagnoses Not on filedocumented in this encounter Additional Health Concerns Infection Onset Date Last Indicated Resolved Time COVID: Suspected 05/26/2020 05/29/2020 05/29/2020 11:43 PM CDT Respiratory Infection (AMANDA), contact + droplet Comment:Automatically added due to negative COVID-19 result. 05/29/2020 05/29/2020 06/12/2020 3:0 7 AM CDT COVID: Suspected 10/19/2020 10/19/2020 10/20/2020 3:12 AM MANAGER AGENCY COVID: Suspected 01/16/2021 01/17/2021 01/18/2021 12:19 AM CDT COVID: Suspected 11/28/2024 11/28/2024 11/28/2024 9:22 PM CDT documented as of this encounter Care Teams Blue Leather Sorter Relationship Specialty Start Date End Date Galina Nunes MD [address] [place], [place] [address]GULSHAN TENA [address] [place] [address] PCP - General 11/15/16 12/05/16 Ana Haddad MD [address] [place], [place] [address]GULSHAN TENA [address] [place] [address] PCP - General 12/06/16 12/08/16 Galina Nunes MD [address] [place], [place] [address]DERECK TENA [address] [place] [address] PCP - General 12/09/16 12/17/16 Ana Haddad MD [address] [place], [place] [address] [address] PCP - General 12/18/16 12/22/16 Glaina Nunes MD [address] [place], [place] [address]DERECK TENA [address] [place] [address] PCP - General 12/23/16 12/25/16 Ana Haddad MD [address] [place], [place] [address]DERECK TENA [address] [place] [address] PCP - General 12/26/16 12/29/16 Galina Nunes MD [address] [place], [place] [address]DERECK TENA [address] [place] [address] PCP - General 12/30/16 01/07/17 Ana Haddad MD [address] [place], [place] [address]DERECK TENA [address] [place] [address] PCP - General 01/08/17 Roz Martines MD [address] [place], [place] [address] [address] Surgeon Orthopedic Surgery 01/12/19 Mellisa Arriola MD [address] [place], [place] [address]DERECK TE[address] [place] [address] Consulting Physician Internal Medicine 01/12/19 Mario Gao MD [address] [place], [place] [address]DERECK TE[address] [place] [address] Consulting Physician Cardiology 01/12/19 Bonita Mosley MD PhD [address] [place], [place] [address]DERECK TENA [address] [place] [address] Dermatology 01/12/19 Linda Milner MD [address] [facility] [place] [phone] [place] [address] Referring Physician Obstetrics and Gynecology 01/12/19 Fariba Fernandez MD [address] [facility] [phone] [place] [address] Referring Physician Endocrinology Diabetes & Metabolism 01/12/19 Marcel Eli MD [address] [facility] [address] [place] [address] Surgeon Orthopedic Surgery 09/06/23 documented as of this encounter
--- OUTSIDE RECORDS SUMMARY | 2025-06-17 13:39 | XMS_ITS | Encounter Summary ---
Author Organization [facility] Medical Group Address [address] [address] Care Team Providers Care Equity Analyst Name Role Phone Galina Nunes MD Primary Care Provider [phone] Galina Nunes MD Primary Care Provider [phone] Galina Nunes MD Primary Care Provider [phone] Ana Haddad MD Primary Care Provi marcus Galina Nunes MD Primary Care Provider [phone] Ana Haddad MD Primary Care Provi marcus Galina Nunes MD Primary Care Provider [phone] Ana Haddad MD Primary Care Provi marcus Galina Nunes MD Primary Care Provider [phone] Ana Haddad MD Primary Care Provi marcus Roz Martines MD Unavailable [phone] Mellisa Arriola MD Unavailable [phone] Mario Gao MD Unavailable [phone] Bonita Mosley MD PhD Unavailable Linda iMlner MD Unavailable [phone] Fariba Fernandez MD Unavailable [phone] Marcel Eli MD Unavailable [phone] Encounter Details Date Type Department Care Team (Late st Contact Info) Description 09/10/2016 Orders Only Arrhythmia Center Provider, MD Sofía [address] [place], [place] [id number] Social History Tobacco Use Types Packs/Day Years Used Date Smoking Tobacco: Never Assessed Alcohol Use Standard Drinks/Week Comments No 0 (1 standard drink = 0.6 oz pur e alcohol) Comments Unknown Sex and Gender Information Value Date Recorded Sex Assigned at Not on file Legal Sex Female 12:17 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 Historical Provider [facility] Final Result documented in this encounter Visit Diagnoses Not on filedocumented in this encounter Additional Health Concerns Infection Onset Date Last Indicated Resolved Time COVID: Suspected 05/26/2020 05/29/2020 05/29/2020 11:43 PM CDT Respiratory Infection (AMANDA), contact + droplet Comment:Automatically added due to negative COVID-19 result. 05/29/2020 05/29/2020 06/12/2020 3: 07 AM CDT COVID: Suspected 10/19/2020 10/19/2020 10/20/2020 3:12 AM CAMERA SUPERVISOR COVID: Suspected 01/16/2021 01/17/2021 01/18/2021 12:19 AM CDT COVID: Suspected 11/28/2024 11/28/2024 11/28/2024 9:22 PM CDT documented as of this encounter Care Teams Equity Analyst Relationship Specialty Start Date End Date Galina Nunes MD [address] [place] [address] DR Obi TENA [address] [place] [address] PCP - General 11/15/16 12/05/16 Galina Nunes MD [address] [place] [address] [address]ARNIE TENA [address] [place] [address] PCP - General 10/14/16 11/14/16 Galina Nunes MD [address] [place], [place] [address]GULSHAN TENA [address] [place] [address] PCP - General 08/25/14 10/13/16 Ana Haddad MD [address] [place] [address] [address]IE TENA [address] [place] [address] PCP - General 12/06/16 12/08/16 Galina Nunes MD [address] [place] [address] [address]IE TENA [address] [place] [address] PCP - General 12/09/16 12/17/16 Ana Haddad MD [address] [place], [place] [address]GULSHAN TENA [address] [place] [address] PCP - General 12/18/16 12/22/16 Galina Nunes MD [address] [place], [place] [address]GULSHAN TENA [address] [place] [address] PCP - General 12/23/16 12/25/16 Ana Haddad MD [facility] TRUDI TENA [address] [place] [address] PCP - General 12/26/16 12/29/16 Galina Nunes MD [facility] TRUDI TENA [address] [place] [address] PCP - General 12/30/16 01/07/17 Ana Haddad MD [address] [place] [address] DR [address] TE[address] [place] [address] PCP - General 01/08/17 Roz Martines MD [address] [place], [place] [address]DERECK TENA [address] [place] [address] Surgeon Orthopedic Surgery 01/12/19 Mellisa Arriola MD [address] [place], [place] [address]DERECK TENA [address] [place] [address] Consulting Physician Internal Medicine 01/12/19 Mario Gao MD [address] [place], [place] [address]DERECK TENA [address] [place] [address] Consulting Physician Cardiology 01/12/19 Bonita Mosley MD PhD [address] [place], [place] [address]DERECK TENA [address] [place] [address] Dermatology 01/12/19 Linda Milner MD [address] [facility] [phone] [place] [address] Referring Physician Obstetrics and Gynecology 01/12/19 Fariba Fernandez MD [address] [facility] [phone] [place], [place] [address] Referring Physician Endocrinology Diabetes & Metabolism 01/12/19 Marcel Eli MD [address] [facility] [address] [place] [address] Surgeon Orthopedic Surgery 09/06/23 documented as of this encounter
--- OUTSIDE RECORDS SUMMARY | 2025-06-17 13:39 | XMS_ITS | Encounter Summary ---
Author Organization [facility] Medical Group Address [address] [address] Care Team Providers Care Weir Fisherman Name Role Phone Galina Nunes MD Primary Care Provider [phone] Ana Hadadd MD Primary Care Provi marcus Galina Nunes MD Primary Care Provider [phone] Ana Haddad MD Primary Care Provi marcus Galina Nunes MD Primary Care Provider [phone] Ana Haddad MD Primary Care Provi marcus Galina Nunes MD Primary Care Provider [phone] Ana Haddad MD Primary Care Provi marcus Roz Martines MD Unavailable [phone] Mellisa Arriola MD Unavailable [phone] Mario Gao MD Unavailable [phone] Bonita Mosley MD PhD Unavailable Linda Milner MD Unavailable [phone] Fariba Fernandez MD Unavailable [phone] Marcel Eli MD Unavailable [phone] Encounter Details Date Type Department Care Team (Late st Contact Info) Description 12/03/2016 Orders Only Arrhythmia Center Provider, MD Sofía [place] [address] Social History Tobacco Use Types Packs/Day Years Used Date Smoking Tobacco: Never Assessed Alcohol Use Standard Drinks/Week Comments No 0 (1 standard drink = 0.6 oz pur e alcohol) Comments Unknown Sex and Gender Information Value Date Recorded Sex Assigned at Not on file Legal Sex Female 12:17 PM LABEL CUTTER Gender Identity Not on file Sexual Orientation Not on file documented as of this encounter Plan of Treatment Scheduled Procedures Name Priority Associated Diagnoses Date/Ti dc ESOPHAGOGASTRODUODENOSCOPY Anemia, unspecified type COLONOSCOPY Anemia, unspecified type documented as of this encounter Procedures Procedure Name Priority Date/Time Associated Diagnosis Comments CARDIOLOGY REPORT 12/03/2016 CARDIOLOGY REPORT 12/03/2016 documented in this encounter Results * CARDIOLOGY REPORT (12/03/2016) Anatomical Region Laterality Modality Other Narrative 12/03/2016 Ordered by an unspecified provider. Historical Provider [facility] Final Result * CARDIOLOGY REPORT (12/03/2016) Anatomical Region Laterality Modality Other Narrative 12/03/2016 Ordered by an unspecified provider. Historical Provider [facility] Final Result documented in this encounter Visit Diagnoses Not on filedocumented in this encounter Additional Health Concerns Infection Onset Date Last Indicated Resolved Time COVID: Suspected 05/26/2020 05/29/2020 05/29/2020 11:43 PM CDT Respiratory Infection (AMANDA), contact + droplet Comment:Automatically added due to negative COVID-19 result. 05/29/2020 05/29/2020 06/12/2020 3:0 7 AM CDT COVID: Suspected 10/19/2020 10/19/2020 10/20/2020 3:12 AM LABEL CUTTER COVID: Suspected 01/16/2021 01/17/2021 01/18/2021 12:19 AM CDT COVID: Suspected 11/28/2024 11/28/2024 11/28/2024 9:22 PM CDT documented as of this encounter Care Teams Weir Fisherman Relationship Specialty Start Date End Date Galina Nunes MD [address] [place] [address] [address] [place] [address] PCP - General 11/15/16 12/05/16 Ana Haddad MD [address] [place], [place] [address]DERECK TENA [address] [place] [address] PCP - General 12/06/16 12/08/16 Galina Nunes MD [address] [place], [place] [address]DERECK TENA [address] [place] [address] PCP - General 12/09/16 12/17/16 Ana Haddad MD [address] [place] [address] [address] [place] [address] PCP - General 12/18/16 12/22/16 Galina Nunes MD [address] [place] [address] [address] [place] [address] PCP - General 12/23/16 12/25/16 Ana Haddad MD [address] [place] [address] [address] [place] [address] PCP - General 12/26/16 12/29/16 Galina Nunes MD [address] [place] [address] [address] [place] [address] PCP - General 12/30/16 01/07/17 Ana Haddad MD [address] [place], [place] [address]GULSHAN TENA [address] [place] [address] PCP - General 01/08/17 Roz Martines MD [address] [place], [place] [address]DERECK TENA [address] [place] [address] Surgeon Orthopedic Surgery 01/12/19 Mellisa Arriola MD [address] [place], [place] [address]DERECK TENA [address] [place] [address] Consulting Physician Internal Medicine 01/12/19 Mario Gao MD [address] [place], [place] [address]DERECK TENA [address] [place] [address] Consulting Physician Cardiology 01/12/19 Bonita Moslye MD PhD [address] [place], [place] [address]DERECK TENA [address] [place] [address] Dermatology 01/12/19 Linda Milner MD [address] [facility] [phone] [place] [address] Referring Physician Obstetrics and Gynecology 01/12/19 Fariba Fernandez MD [address] [facility] [phone] [place] [address] Referring Physician Endocrinology Diabetes & Metabolism 01/12/19 Marcel Eli MD [address] [place] [address] [place], [place] [address] Surgeon Orthopedic Surgery 09/06/23 documented as of this encounter
--- OUTSIDE RECORDS SUMMARY | 2025-06-17 13:39 | XMS_ITS | Encounter Summary ---
Author Organization [facility] Health Address [address] 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
--- OUTSIDE RECORDS SUMMARY | 2025-06-17 13:39 | XMS_ITS | Encounter Summary ---
Author Organization [facility] Health Address [address] [place] [address] Care Team Providers Care Hand Rounder Name Role Phone Nathan Dize Primary Care Provider [phone] Hamlet Rodriguez MD Primary Care Provider [phone] Encounter Details Date Type Department Care Team (Late st Contact Info) Description 01/01/2010 [facility]NAL [facility] DEPT Unknown, Provider Social History Tobacco Use Types Packs/Day Years Used Date Smoking Tobacco: Every Day Comments:1 1/2 pks per week Alcohol Use Standard Drinks/Week Comments No 0 (1 standard drink = 0.6 oz pur e alcohol) rarely Comments No Sex and Gender Information Value Date Recorded Sex Assigned at Not on file Legal Sex Female 4:23 AM 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
--- OUTSIDE RECORDS SUMMARY | 2025-06-17 13:39 | XMS_ITS | Encounter Summary ---
Author Organization [facility] Health Address [address] 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
--- OUTSIDE RECORDS SUMMARY | 2025-06-17 13:39 | XMS_ITS | Encounter Summary ---
Author Organization [facility] Address [address] [address] Care Team Providers Care Build Engineer Name Role Phone Galina Nunes MD Primary Care Provider [phone] Galina Nunes MD Primary Care Provider [phone] Galina Nunes MD Primary Care Provider [phone] Ana Haddad MD Primary Care Provi marcus Galina Nunes MD Primary Care Provider [phone] Ana Haddad MD Primary Care Provi marcus Galina Nunes MD Primary Care Provider [phone] Ana Haddad MD Primary Care Provi marcus Galina Nunes MD Primary Care Provider [phone] Ana Haddad MD Primary Care Provi marcus Roz Martines MD Unavailable [phone] Mellisa Arriola MD Unavailable [phone] Mario Gao MD Unavailable [phone] Bonita Mosley MD PhD Unavailable Linda Milner MD Unavailable [phone] Fariba Fernandez MD Unavailable [phone] Marcel Eli MD Unavailable [phone] Encounter Details Date Type Department Care Team (Late st Contact Info) Description 08/01/2016 Orders Only [facility] Provider, MD Sofía [address] [place], [place] [id number] Social History Tobacco Use Types Packs/Day Years Used Date Smoking Tobacco: Never Assessed Alcohol Use Standard Drinks/Week Comments No 0 (1 standard drink = 0.6 oz pur e alcohol) Comments Unknown Sex and Gender Information Value Date Recorded Sex Assigned at Not on file Legal Sex Female 12:17 PM BLOWING WEASAND Gender Identity Not on file Sexual Orientation Not on file documented as of this encounter Plan of Treatment Scheduled Procedures Name Priority Associated Diagnoses Date/Ti me ESOPHAGOGASTRODUODENOSCOPY Anemia, unspecified type COLONOSCOPY Anemia, unspecified type documented as of this encounter Procedures Procedure Name Priority Date/Time Associated Diagnosis Comments CARDIOLOGY REPORT 08/01/2016 documented in this encounter Results * CARDIOLOGY REPORT (08/01/2016) Anatomical Region Laterality Modality Other Narrative 08/01/2016 Ordered by an unspecified provider. Historical Provider [...] COVID: Suspected 10/19/2020 10/19/2020 10/20/2020 3:12 AM BLOWING WEASAND COVID: Suspected 01/16/2021 01/17/2021 01/18/2021 12:19 AM CDT COVID: Suspected 11/28/2024 11/28/2024 11/28/2024 9:22 PM CDT documented as of this encounter Care Teams Build Engineer Relationship Specialty Start Date End Date Galina Nunes MD [address] [place] [address] DR Obi TENA [address] [place] [address] PCP - General 11/15/16 12/05/16 Galina Nunes MD [address] [place] [address] [address] [place] [address] PCP - General 10/14/16 11/14/16 Galina Nunes MD [address] [place], [place] [address]GULSHAN TENA [address] [place] [address] PCP - General 08/25/14 10/13/16 Ana Haddad MD [address] [place] [address] [address] [place] [address] PCP - General 12/06/16 12/08/16 Galina Nunes MD [address] [place] [address] [address] [place] [address] PCP - General 12/09/16 12/17/16 Ana Haddad MD [address] [place], [place] [address]GULSHAN TENA [address] [place] [address] PCP - General 12/18/16 12/22/16 Galina Nunes MD [address] [place], [place] [address]GULSHAN TENA [address] [place] [address] PCP - General 12/23/16 12/25/16 Ana Haddad MD [facility] TRUDI TENA [address] [place] [address] PCP - General 12/26/16 12/29/16 Galina Nunes MD [facility] TRUDI TENA [address] [place] [address] PCP - General 12/30/16 01/07/17 Ana Haddad MD [address] [place] [address] [address] TE[address] [place] [address] PCP - General 01/08/17 Roz Martines MD [address] [place], [place] [address]DERECK TENA [address] [place] [address] Surgeon Orthopedic Surgery 01/12/19 Mellisa Arriola MD [address] [place], [place] [address]DERECK TENA [address] [place] [address] Consulting Physician Internal Medicine 01/12/19 Mario Gao MD [address] [place], [place] [address]DERECK TENA [address] [place] [address] Consulting Physician Cardiology 01/12/19 Bonita Mosley MD PhD [address] [place], [place] [address]DERECK TENA [address] [place] [address] Dermatology 01/12/19 Linda Milner MD [address] [facility] [phone] [place] [address] Referring Physician Obstetrics and Gynecology 01/12/19 Fariba Fernandez MD [address] [facility] [phone] [place], [place] [address] Referring Physician Endocrinology Diabetes & Metabolism 01/12/19 Marcel Eli MD [address] [facility] [address] [place] [address] Surgeon Orthopedic Surgery 09/06/23 documented as of this encounter
--- OUTSIDE RECORDS SUMMARY | 2025-06-17 13:39 | XMS_ITS | Encounter Summary ---
Author Organization [facility] Health Address [address] 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
--- OUTSIDE RECORDS SUMMARY | 2025-06-17 13:39 | XMS_ITS | Clinical Summary ---
Author Organization [facility] Address [address] [facility] [place] [address] Care Team Providers Care Cable Wirer Name Role Phone Hamlet Rodriguez MD Primary Care Provider [phone] Source Comments [facility],non-owned Affiliates and Associated Physician Practices is amultiple site organization consisting of ambulatory clinics and hospital sitesin [place], [place], [place] and [place]. This disclosure is being madepursuant to the Care Everywhere program and may not contain all information available regarding this patient. Last updated 18.[facility] Allergies No known active allergies Medications * [...] on file Legal Sex Female 4:23 AM CHART CALCULATOR Gender Identity Not on file Sexual Orientation Not on file Last Filed Vital Signs Vital Sign Reading Time Taken Comments Blood Pressure 124/77 08/14/2011 9:51 AM CHART CALCULATOR Pulse 67 08/14/2011 9:51 AM CHART CALCULATOR Temperature 36.1 C (96.9 F) 08/14/2011 9:51 AM CHART CALCULATOR Respiratory Rate 18 08/14/2011 9:51 AM CHART CALCULATOR Oxygen Saturation - - Inhaled Oxygen Concentration - - Weight 94.3 kg (208 lb) 07/26/2011 11:41 AM CHART CALCULATOR Height 167.6 cm (5' 6) 12/19/2008 10:20 [...] obtained for component test. Test Information [facility] INSURANCE BILL Comment: The reportable range for this assay is 43 to 69,000,000 IU HCV RNA/mL. . 03/08/2010 2:24 PM CDT 03/08/2010 9:25 PM CDT Narrative [facility] INSURANCE BILL - 03/12/2010 9:13 AM CDT Additional Result Information HCV LOG10 LOG10 IU/ML BLOOD ([facility]): RESULT NOT AVAILABLE Resulting Agency Comment [facility] [address] [place] [phone] us Frank Lora MD LAB - SEROLOGY ORDERABLES Final Result [facility] INSURANCE BILL [address] [place] [address] from Last 3 Months or Most Recently Relevant to Health Maintenance Insurance [employer] Care Teams Cable Wirer Relationship Specialty Start Date End Date Hamlet Rodriguez MD [address] [place] [address] PCP - General 03/22/11
--- OUTSIDE RECORDS SUMMARY | 2025-06-17 13:39 | XMS_ITS | Encounter Summary ---
Author Organization [facility] Health Address [address] [facility] [place] [address] Care Team Providers Care Metal Temperer Name Role Phone Nathan Diez Primary Care Provider [phone] Hamlet Rodriguez MD Primary Care Provider [phone] Encounter Details Date Type Department Care Team (Late st Contact Info) Description 06/22/2010 SS Outpatient Visit EXTERNAL NON-[facility] DEPT Frank Lora MD [address] [place] [address] Social History Tobacco Use Types Packs/Day Years Used Date Smoking Tobacco: Every Day Comments:1 1/2 pks per week Alcohol Use Standard Drinks/Week Comments No 0 (1 standard drink = 0.6 oz pur e alcohol) rarely Comments No Sex and Gender Information Value Date Recorded Sex Assigned at Not on file Legal Sex Female 4:23 AM IDEA MAN Gender Identity Not on file Sexual Orientation Not on file documented as of this encounter Plan of Treatment Not on file documented as of this encounter Visit Diagnoses Not on filedocumented in this encounter Care Teams Metal Temperer Relationship Specialty Start Date End Date Jose Diez MD PCP - General 02/13/10 03/21/11 Hamlet Rodriguez MD [address] [place] [address] PCP - General 03/22/11 documented as of this encounter
--- OUTSIDE RECORDS SUMMARY | 2025-06-17 13:39 | XMS_ITS | Encounter Summary ---
Author Organization [facility] Address [address] [place] [address] Care Team Providers Care Smooth And Burr Worker Composites Name Role Phone Ana Haddad MD Primary Care Provi marcus Roz Martines MD Unavailable [phone] Mellisa Arriola MD Unavailable Mario Gao MD Unavailable Bonita Mosley MD PhD Unavailable Linda Milner MD Unavailable Fariba Fernandez MD Unavailable Marcel Eli MD Unavailable Encounter Details Date Type Department Care Team (Late st Contact Info) Description 02/05/2023 Telephone [facility] ([facility]) [address] [place] [id number] Heath Bishop, RT Social History Tobacco Use Types Packs/Day Years Used Date Smoking Tobacco: Former Cigarettes 0.5 30 1 2 - 2011 Smokeless Tobacco: Never Alcohol Use Standard Drinks/Week Comments No 0 (1 standard drink = 0.6 oz pur e alcohol) AUDIT-C Answer Date Recorded Q1: How often do you have a drink containing alcohol? Never 04/24/2022 Q2: How many drinks containi ng alcohol do you have on a typical day when you are drinking? Patient does not drink Q3: How often do you have si x or more drinks on one occasion? Never 04/24/2022 PHQ-2 Answer Date Recorded PHQ-2 Total Score (If total score is 3 or more points, staff should administer the PHQ-9) 0 04/29/2022 Comments No Sex and Gender Information Value Date Recorded Sex Assigned at Not on file Legal Sex Female 12:17 PM BUILDING ENGINEER Gender Identity Not on file Sexual [...] documented as of this encounter Care Teams Smooth And Burr Worker Composites Relationship Specialty Start Date End Date Ana Haddad MD PCP - General 01/08/17 Roz Martines MD Surgeon Orthopedic Surgery 01/12/19 Mellisa Arriola MD Consulting Physician Internal Medicine 01/12/19 Mario Gao MD Consulting Physician Cardiology 01/12/19 Bonita Mosley MD PhD Dermatology 01/12/19 Linda Milner MD [address] [phone] [place] [address] Referring Physician Obstetrics and Gynecology 01/12/19 Fariba Fernandez MD [address] [phone] [place] [address] Referring Physician Endocrinology Diabetes & Metabolism 01/12/19 Marcel Eli MD [address] [place] [address] Surgeon Orthopedic Surgery 09/06/23 documented as of this encounter
--- OUTSIDE RECORDS SUMMARY | 2025-06-17 13:39 | XMS_ITS | Encounter Summary ---
Author Organization [facility] Health Address [address] [facility] [place] [address] Care Team Providers Care Customer Advisor Name Role Phone Nathan Diez Primary Care Provider [phone] Hamlet Rodriguez MD Primary Care Provider [phone] Encounter Details Date Type Department Care Team (Late st Contact Info) Description 04/24/2010 SS Outpatient Visit EXTERNAL NON-[facility] DEPT Frank Lora MD [address] [place] [address] Social History Tobacco Use Types Packs/Day Years Used Date Smoking Tobacco: Every Day Comments:1 1/2 pks per week Alcohol Use Standard Drinks/Week Comments No 0 (1 standard drink = 0.6 oz pur e alcohol) rarely Comments No Sex and Gender Information Value Date Recorded Sex Assigned at Not on file Legal 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
--- OUTSIDE RECORDS SUMMARY | 2025-06-17 13:39 | XMS_ITS | Encounter Summary ---
Author Organization [facility] Health Address [address] [address] Care Team Providers Care Board Certified Orthodontist Name Role Phone Nathan Diez Primary Care Provider Hamlet Rodriguez MD Primary Care Provider [phone] Encounter Details Date Type Department Care Team [...] on file Legal Sex Female 4:23 AM SPARE HAND Gender Identity Not on file Sexual Orientation Not on file documented as of this encounter Plan of Treatment Not on file documented as of this encounter Visit Diagnoses Not on filedocumented in this encounter Care Teams Board Certified Orthodontist Relationship Specialty Start Date End Date Jose Diez MD PCP - General 02/13/10 03/21/11 Hamlet Rodriguez MD [address] [place] [address] [address] [place] [address] PCP - General 03/22/11 documented as of this encounter
--- OUTSIDE RECORDS SUMMARY | 2025-06-17 13:39 | XMS_ITS ---
Author Organization [facility] Address [address] [place] [address] Care Team Providers Care Cloth Sander Name Role Phone Ana Haddad MD Primary Care Provi marcus Roz Martines MD Unavailable Mellisa Arriola MD Unavailable [phone] Mario Gao MD Unavailable Boniat Mosley MD PhD Unavailable Linda Milner MD Unavailable Fariba Fernandez MD Unavailable Marcel Eli MD Unavailable Active Problems Problem Noted Date Diagnosed Date CAD (coronary artery disease) 06/07/2025 Diabetes 06/07/2025 GERD (gastroesophageal reflux disease) 5 Laceration of forehead 06/07/2025 Sepsis 11/28/2024 Assessment [...] 06/28/2024 Assessment & Plan (06/28/2024 11:26 AM PHYSICIAN'S AIDE): Reassured that dependent edema at the end of the day is liekly benign Consider compression socks, watch salt Androgenetic alopecia 06/28/2024 Assessment & Plan (06/28/2024 11:32 AM PHYSICIAN'S AIDE): Will check labs to r/o other causes Will see Dr Mejias- could trial topical Rogaine in the meantime Carpal tunnel syndrome on right 04/28/2024 Assessment & Plan (06/28/2024 11:30 AM PHYSICIAN'S AIDE): Planning on carpal tunnel release in the new year with ortho Wrist pain, acute, right 04/28/2024 Bilateral shoulder pain 02/23/2024 Neck pain 02/23/2024 Assessment & Plan (02/23/2024 10:15 AM CDT): She plans to follow up with Dr Lucero to discuss her symptoms- offered [facility] referral to discuss RFA but she would [...] with Dr Eli, get MRI with Dr Lucero Assessment & Plan (10/29/2021 11:52 AM CDT): Suspect a combination of her neuropathy, spinal stenosis, lack of balance training. Discussed potential contribution of meds but she denies feeling lightheaded/tired/etc Agree with PT but she would like to put this off for now Encouraged balance training at home - given HEP Brain fog 07/23/2021 Assessment & Plan (07/23/2021 11:31 AM PHYSICIAN'S AIDE): May be medication related- tramadol, Lyrica, trazodone- [...] guidance Assessment & Plan (07/23/2019 9:30 AM PHYSICIAN'S AIDE): Status post right subtalar injection today Anemia [...] NSAIDs Assessment & Plan (07/23/2019 11:53 AM PHYSICIAN'S AIDE): Normocytic- will plan to add iron studies, B12, folate to next labs Vertebral artery occlusion, left 06/04/2019 Assessment & Plan (06/18/2023 11:09 AM CDT): Continue max-dose atorvastatin + ASA 81mg daily Assessment & Plan (04/29/2022 10:47 AM CDT): Continue max-dose atorvastatin + ASA 81mg daily Assessment & Plan (07/23/2019 11:53 AM PHYSICIAN'S AIDE): I do not think this was responsible [...] & Plan (12/25/2020 1:15 PM CDT): Consider [facility] referral for RFA - she will discuss [...] cancer screen: normal 2018 - managed by cardiac cath technician Breast cancer screen: BiRads 16 November 2021 Colorectal cancer screen: polyps 2020 -> repeat 2025 Osteoporosis screen: normal 2018 -> repeat now Lung Cancer screen: does not meet critera (<20 pack years) Hepatitis C: neg 2019 Vaccines: Influenza recommended annually Td/Tdap UTD 2021 Shingrix 2/2 complete Pneumovax UTD 2011, [id number] recommended COVID 2/2 +2 boosters complete; will get omicron booster Assessment & Plan (04/11/2021 10:46 AM CDT): Health maintenance issues addressed during this visit included the following: Cervical cancer screen: normal 2019 - managed by cardiac cath technician Breast cancer screen: BiRads 18 Jul 2020 -> will schedule in near future Colorectal cancer screen: normal 2015 -> repeat 2025 Osteoporosis screen: normal 2018 -> repeat 3-5 yrs Lung Cancer screen: [...] the following: Cervical cancer screen: normal 2018 Breast cancer screen: BiRads 16 January 2019 -> will schedule in near future Colorectal cancer screen: normal 2015 -> repeat 2025 Osteoporosis screen: normal 2019 -> repeat 3-5 yrs Lung Cancer screen: does not meet critera (<30 pack years) Hepatitis C: neg 2019 Vaccines: Influenza UTD 2018 Td/Tdap UTD 2016 Shingrix recommended Prevnar at [...] 2019 Vaccines: Influenza UTD 2018 Td/Tdap UTD 2016 Shingrix recommended Prevnar at 65 Pneumovax UTD 2012 and will need update 1 yr after Prevnar Paroxysmal atrial fibrillation 10/12/2018 Overview (10/12/2018): Added automatically from request for surgery [id number] Assessment & Plan (06/28/2024 11:29 AM PHYSICIAN'S AIDE): No episodes Doing well with Xarelto Assessment & Plan (06/18/2023 11:06 AM CDT): No episodes Doing well with Xarelto Assessment & Plan (04/29/2022 10:47 AM CDT): No episodes Doing well with Xarelto Assessment & Plan (04/11/2021 11:17 AM CDT): NSR in office today Managed by Dr Murray Nolascorelto Assessment & Plan (02/25/2020 11:21 AM CDT): [...] bruising. Assessment & Plan (07/14/2017 9:27 AM PHYSICIAN'S AIDE): She remains anticoagulated on Xarelto 20mg daily. [...] ILR implanted on 10-22-18 for AF management. [facility] Assessment & Plan (11/11/2017 10:41 AM CDT): Her atrial arrhythmia burden will continue be monitored via her implantable loop recorder. Assessment & Plan (07/14/2017 9:27 AM PHYSICIAN'S AIDE): Her atrial arrhythmia burden will continue to [...] obtained in ED -Synovial fluid with RBC 068535 and neutrophils 81910, aerobic and anaerobic culture, Gram stain showed [...] 10/19/2015 Assessment & Plan (06/28/2024 11:30 AM PHYSICIAN'S AIDE): Stable on Lyrica Assessment & Plan (06/18/2023 [...] inpatient Assessment & Plan (06/28/2024 11:29 AM PHYSICIAN'S AIDE): A1c 5.9% today- very well controlled on [...] efforts Assessment & Plan (07/23/2021 11:26 AM PHYSICIAN'S AIDE): A1c well-controlled at 5.9% today Well controlled [...] efforts Assessment & Plan (10/12/2020 11:14 AM PHYSICIAN'S AIDE): She would like to go back on [...] exam Assessment & Plan (07/23/2019 11:53 AM PHYSICIAN'S AIDE): A1c 5.5% - now just on Ozempic [...] pneumovaxx Assessment & Plan (10/02/2018 11:52 AM PHYSICIAN'S AIDE): A1c continues to improve- 6.8% on 0.5mg [...] today Assessment & Plan (10/02/2018 11:55 AM PHYSICIAN'S AIDE): Now on Lyrica 150mg BID which has [...] diet Assessment & Plan (06/28/2024 11:27 AM PHYSICIAN'S AIDE): BP continues to look great off meds, [...] lightheadedness Assessment & Plan (07/23/2021 11:29 AM PHYSICIAN'S AIDE): BP extremely well-controlled on current regimen No [...] doses Assessment & Plan (10/12/2020 11:13 AM PHYSICIAN'S AIDE): BP very well controlled on current regimen. [...] 5 Assessment & Plan (07/23/2019 11:54 AM PHYSICIAN'S AIDE): BP much better since we DCed Farxiga [...] 07/23/2010 Assessment & Plan (10/12/2020 11:18 AM PHYSICIAN'S AIDE): She will discuss Jamey Kim with derm Hepatitis C antibody test positive 02/12/2010 Overview (12/25/2020): Drawn 01/2010 Vitamin D deficiency 12/19/2008 Assessment & Plan (04/11/2021 11:15 AM CDT): Will check levels Carpal tunnel syndrome 09/09/2008 Overview (02/11/2017): Overview: S/p surgery 1998 Malignant neoplasm of cervix 09/09/2008 Overview (02/11/2017): Overview: 1988 Cervical vertebral fusion 09/09/2008 Overview (02/11/2017): Overview: [...] negative Assessment & Plan (06/28/2024 11:29 AM PHYSICIAN'S AIDE): Following with Dr Arriola and now on Skyrizi in addition to MTX, doing well overall Assessment & Plan (06/18/2023 11:09 AM CDT): Following with Dr Arriola and now on Minayrjim , doing well overall Assessment & Plan [...] PVX Assessment & Plan (10/02/2018 11:47 AM PHYSICIAN'S AIDE): Now established with Dr Arriola Doing fairly well on leflunomide and Cosentyx- > encouraged her to get labs done Assessment & Plan (06/08/2018 10:12 AM CDT): Plans to establish with Mellisa Arriola in a few weeks Currently on Cosentyx- ran out of leflunomide and cannot refill until she establishes with rheum but continues to do ok off Current Treatment and Therapy Plans No current plan information found. Past Treatment and Therapy Plans Lifetime Dose Tracking * Chemical Lifetime Dose Automatic Entry Manual Entr y Fluoro Time 10.275 minutes 10.275 minutes 0 minutes Air kerma at the reference point (Ka,r) 44.68 mGy 4 4.68 mGy 0 mGy DLP 1,257 mGycm 1,257 mGycm 0 mGycm Resolved Problems Problem Noted Date Diagnosed Date [...] Robitussin DM , Flonase, etc She will chart picker a pulse oximeter at drive- through as [...] 04/29/2022 Assessment & Plan (07/23/2021 11:22 AM PHYSICIAN'S AIDE): Thought to represent airway hyperreactivity and did [...] on antibiotics which I sent to her [facility] today Sore throat 10/19/2020 12/25/2020 Assessment & Plan (10/19/2020 1:32 PM PHYSICIAN'S AIDE): Her Centor criteria score is at most [...] 04/29/2022 Assessment & Plan (07/23/2021 11:27 AM PHYSICIAN'S AIDE): Tried bupropion but she ddn't tolerate well. Doesn't want to try anything else at this time. Assessment & Plan (12/25/2020 1:06 PM CDT): She could not tolerate bupropion but feels like the change in weather has been very helpful in this regard. Will CTM off meds for now Assessment & Plan (10/12/2020 11:11 AM PHYSICIAN'S AIDE): Will start bupropion for possible SAD and [...] 01/2021 Assessment & Plan (10/02/2018 11:54 AM PHYSICIAN'S AIDE): I suspect that this is related to [...] EKG. Assessment & Plan (07/14/2017 9:31 AM PHYSICIAN'S AIDE): She is post radiofrequency catheter ablation of [...]
--- OUTSIDE RECORDS SUMMARY | 2025-06-17 13:39 | XMS_ITS | Encounter Summary ---
Author Organization [facility] Address [address] [address] Care Team Providers Care Matrix Bath Operator Name Role Phone Galina Nunes MD Primary Care Provider [phone] Galina Nunes MD Primary Care Provider [phone] Galina Nunes MD Primary Care Provider [phone] Ana Haddad MD Primary Care Provi marcus Galina Nunes MD Primary Care Provider [phone] Ana Haddad MD Primary Care Provi marcus Galina Nunes MD Primary Care Provider [phone] Ana Haddad MD Primary Care Provi marcus Galina Nunes MD Primary Care Provider [phone] Ana Haddad MD Primary Care Provi marcus Roz Martines MD Unavailable [phone] Mellisa Arriola MD Unavailable [phone] Mario Gao MD Unavailable [phone] Bonita Mosley MD PhD Unavailable Linda Milner MD Unavailable [phone] Fariba Fernandez MD Unavailable [phone] Marcel Eli MD Unavailable [phone] Encounter Details Date Type Department Care Team (Late st Contact Info) Description 09/12/2016 Orders Only [facility] Center Provider, MD Sofía [address] [place], [place] [id number] Social History Tobacco Use Types Packs/Day Years Used Date Smoking Tobacco: Never Assessed Alcohol Use Standard Drinks/Week Comments No 0 (1 standard drink = 0.6 oz pur e alcohol) Comments Unknown Sex and Gender Information Value Date Recorded Sex Assigned at Not on file Legal Sex Female 12:17 PM TABLEMAN Gender Identity Not on file Sexual Orientation Not on file documented as of this encounter Plan of Treatment Scheduled Procedures Name Priority Associated Diagnoses Date/Ti me ESOPHAGOGASTRODUODENOSCOPY Anemia, unspecified type COLONOSCOPY Anemia, unspecified type documented as of this encounter Procedures Procedure Name Priority Date/Time Associated Diagnosis Comments CARDIOLOGY REPORT 09/12/2016 documented in this encounter Results * CARDIOLOGY REPORT (09/12/2016) Anatomical Region Laterality Modality Other Narrative 09/12/2016 Ordered by an unspecified provider. Historical Provider [...] COVID: Suspected 10/19/2020 10/19/2020 10/20/2020 3:12 AM TABLEMAN COVID: Suspected 01/16/2021 01/17/2021 01/18/2021 12:19 AM CDT COVID: Suspected 11/28/2024 11/28/2024 11/28/2024 9:22 PM CDT documented as of this encounter Care Teams Matrix Bath Operator Relationship Specialty Start Date End Date Galina Nunes MD [address] [place] [address] DR Obi TENA [address] [place] [address] PCP - General 11/15/16 12/05/16 Galina Nunes MD [address] [place] [address] [address]NA [address] [place] [address] PCP - General 10/14/16 11/14/16 Galina Nunes MD [address] [place], [place] [address]GULSHAN TENA [address] [place] [address] PCP - General 08/25/14 10/13/16 Ana Haddad MD [address] [place] [address] [address]NA [address] [place] [address] PCP - General 12/06/16 12/08/16 Galina Nunes MD [address] [place] [address] [address]NA [address] [place] [address] PCP - General 12/09/16 12/17/16 Ana Haddad MD [address] [place], [place] [address]GULSHAN TENA [address] [place] [address] PCP - General 12/18/16 12/22/16 Galina Nunes MD [address] [place], [place] [address]GULSHAN TENA [address] [place] [address] PCP - General 12/23/16 12/25/16 Ana Haddad MD [facility] TRUDI TENA [address] [place] [address] PCP - General 12/26/16 12/29/16 Galina Nunes MD [facility] TRUDI TENA [address] [place] [address] PCP - General 12/30/16 01/07/17 Ana Haddad MD [address] [place] [address] DR O[address] TE[address] [place] [address] PCP - General 01/08/17 Roz Martines MD [address] [place], [place] [address]DERECK TENA [address] [place] [address] Surgeon Orthopedic Surgery 01/12/19 Mellisa Arriola MD [address] [place], [place] [address]DERECK TENA [address] [place] [address] Consulting Physician Internal Medicine 01/12/19 Mario Gao MD [address] [place], [place] [address]DERECK TENA [address] [place] [address] Consulting Physician Cardiology 01/12/19 Bonita Mosley MD PhD [address] [place], [place] [address]DERECK TENA [address] [place] [address] Dermatology 01/12/19 Linda Milner MD [address] [facility] [phone] [place] [address] Referring Physician Obstetrics and Gynecology 01/12/19 Fariba Fernandez MD [address] [facility] [id number] [place], [place] [address] Referring Physician Endocrinology Diabetes & Metabolism 01/12/19 Marcel Eli MD [address] [facility] [address] [place] [address] Surgeon Orthopedic Surgery 09/06/23 documented as of this encounter
--- OUTSIDE RECORDS SUMMARY | 2025-06-17 13:39 | XMS_ITS | Encounter Summary ---
Author Organization [facility] Address [address] [address] Care Team Providers Care Chassis Driver Name Role Phone Galina Nunes MD Primary Care Provider [phone] Galina Nunes MD Primary Care Provider [phone] Ana Haddad MD Primary Care Provi marcus Galina Nunes MD Primary Care Provider [phone] Ana Haddad MD Primary Care Provi marcus Galina Nunes MD Primary Care Provider [phone] Ana Haddad MD Primary Care Provi marcus Galina Nunes MD Primary Care Provider [phone] Aan Haddad MD Primary Care Provi marcus Roz Martines MD Unavailable [phone] Mellisa Arriola MD Unavailable [phone] Mario Gao MD Unavailable [phone] Bonita Mosley MD PhD Unavailable Linda Milner MD Unavailable [phone] Fariba Fernandez MD Unavailable [phone] Marcel Eli MD Unavailable [phone] Encounter Details Date Type Department Care Team (Late st Contact Info) Description 10/18/2016 Orders Only Arrhythmia Center Provider, MD Sofía [address] [place] [address] Social History Tobacco Use Types Packs/Day Years Used Date Smoking Tobacco: Never Assessed Alcohol Use Standard Drinks/Week Comments No 0 (1 standard drink = 0.6 oz pur e alcohol) Comments Unknown Sex and Gender Information Value Date Recorded Sex Assigned at Not on file Legal Sex Female 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 Historical Provider [...] COVID: Suspected 10/19/2020 10/19/2020 10/20/2020 3:12 AM MENU PLANNER COVID: Suspected 01/16/2021 01/17/2021 01/18/2021 12:19 AM CDT COVID: Suspected 11/28/2024 11/28/2024 11/28/2024 9:22 PM CDT documented as of this encounter Care Teams Chassis Driver Relationship Specialty Start Date End Date Galina Nunes MD [address] [place], [place] [address]DERECK TENA [address] [place] [address] PCP - General 11/15/16 12/05/16 Galina Nunes MD [address] [place] [address] MARNIE TENA [address] [place] [address] PCP - General 10/14/16 11/14/16 Ana Haddad MD [address] [place], [place] [address]DERECK TENA [address] [place] [address] PCP - General 12/06/16 12/08/16 Galina Nunes MD [address] [place], [place] [address]DERECK TENA [address] [place] [address] PCP - General 12/09/16 12/17/16 Ana Haddad MD [address] [place], [place] [address]DERECK TENA [address] [place] [address] PCP - General 12/18/16 12/22/16 Galina Nunes MD [address] [place], [place] [address]DERECK TENA [address] [place] [address] PCP - General 12/23/16 12/25/16 Ana Haddad MD [address] [place] [address] [address]NA [address] [place] [address] PCP - General 12/26/16 12/29/16 Galina Nunes MD [address] [place], [place] [address]DERECK TENA [address] [place] [address] PCP - General 12/30/16 01/07/17 Ana Haddad MD [address] [place] [address] [address] [place] [address] PCP - General 01/08/17 Roz Martines MD [facility] [address] [place] [address] Surgeon Orthopedic Surgery 01/12/19 Mellisa Arriola MD [address] [place], [place] [address]DERECK TENA [address] [place] [address] Consulting Physician Internal Medicine 01/12/19 Mario Gao MD [address] [place], [place] [address]DERECK TENA [address] [place] [address] Consulting Physician Cardiology 01/12/19 Bonita Mosley MD PhD [address] [place], [place] [address]DERECK TENA [address] [place] [address] Dermatology 01/12/19 Linda Milner MD [address] [facility] [phone] [place] [address] Referring Physician Obstetrics and Gynecology 01/12/19 Fariba Fernandez MD [address] [facility] [phone] [place] [address] Referring Physician Endocrinology Diabetes & Metabolism 01/12/19 Marcel Eli MD [address] [place] [address] [place], [place] [address] Surgeon Orthopedic Surgery 09/06/23 documented as of this encounter
[2025-06-17 13:42] VITALS: BP 142/95; PULSE 118; RESP 17; O2SAT 96
== END 2025-06-17 13:44 | disposition home or self-care (01) ==
LOC: ANHED 13:36
PROVIDERS: Emergency Provider Student in an Organized Health Care Education/Training Program
DX: S51.811A Laceration without foreign body of right forearm, initial encounter (principal); I25.10 Atherosclerotic heart disease of native coronary artery without angina pectoris; I48.91 Unspecified atrial fibrillation; I25.2 Old myocardial infarction; E11.9 Type 2 diabetes mellitus without complications; E78.00 Pure hypercholesterolemia, unspecified; L40.50 Arthropathic psoriasis, unspecified; K21.9 Gastro-esophageal reflux disease without esophagitis; Z96.659 Presence of unspecified artificial knee joint; Z86.73 Personal history of transient ischemic attack (TIA), and cerebral infarction without residual deficits; Z79.01 Long term (current) use of anticoagulants; Z79.899 Other long term (current) drug therapy; Z79.85 Long-term (current) use of injectable non-insulin antidiabetic drugs; Z79.620 Long term (current) use of immunosuppressive biologic; Z79.61 Long term (current) use of immunomodulator; Z79.84 Long term (current) use of oral hypoglycemic drugs; Z79.82 Long term (current) use of aspirin; R94.31 Abnormal electrocardiogram [ECG] [EKG]; R00.0 Tachycardia, unspecified; W19.XXXA Unspecified fall, initial encounter
CPT/HCPCS: 93005; 99283; A9270